=== PATIENT | male | born 1950 | race African-American/Black ===

== ENCOUNTER 2020-09-03 12:07 | Outpatient (REF) | payer OTHER, SELFPAY ==
[2020-09-03 13:44] LABS: MANUAL DIFF FLAG NO
[2020-09-03 13:53] LABS: Basophils Percent Auto 0.5 % (0-2); Eosinophils Absolute Auto 0.1 X10*3/uL (0.0-0.4); Eosinophils Percent Auto 1.2 % (0-4); Hematocrit 45.2 % (42-52); Hemoglobin 15.4 g/dl (14.0-18.0); Imm Gran Abs Auto 0.01 X10*3/uL (0.00-0.03); Imm Gran Pct Auto 0.2 % (0.0-0.4); Lymphocytes Absolute Auto 2.6 X10*3/uL (1.2-4.9); Lymphocytes Percent Auto 45.3 % (20-40); Mean Corpuscular HGB Conc 34.1 g/dl (31.0-36.0); Mean Corpuscular Hemoglobin 28.1 pg (27.0-33.0); Mean Corpuscular Volume 82.3 fL (80-98); Mean Platelet Volume 11.2 fL (9.4-12.4); Monocytes Absolute Auto 0.6 X10*3/uL (0.1-1.2); Monocytes Percent Auto 10.5 % (2-11); Neutrophils Absolute Auto 2.5 X10*3/uL (2.0-8.3); Neutrophils Percent Auto 42.3 % (45-73); Platelet Count 201 X10*3/uL (160-400); Red Blood Count 5.49 X10*6/uL (4.60-5.80); Red Cell Distribution Width 12.8 % (11.0-16.0); White Blood Count 5.8 X10*3/uL (4.8-10.8)
[2020-09-03 14:20] LABS: Creatinine Urine 60.48 mg/dL
[2020-09-03 14:24] LABS: Alanine Aminotransferase 22 U/L (0-40); Albumin Level 4.3 g/dL (3.5-5.0); Alkaline Phosphatase 70 U/L (39-117); Anion Gap 10 (12-20); Aspartate Amino Transferase 18 U/L (5-37); Bilirubin Total 0.7 mg/dL (0.0-1.0); Blood Urea Nitrogen 27 mg/dL (9-16); Calcium 9.9 mg/dL (8.4-10.2); Carbon Dioxide 32 mmol/L (22-29); Chloride 103 mmol/L (96-108); Estimated Glomerular Filt Rate 39; Glucose Random 78 mg/dL (60-115); Potassium 4.4 mmol/l (3.3-5.1); Sodium 141 mmol/L (135-145); Total Protein 7.5 g/dL (6.5-8.0)
[2020-09-03 14:28] LABS: Estimated Average Glucose 128 mg/dL; Hemoglobin A1c % 6.1 %
== END 2020-09-03 12:08 | disposition home or self-care (01) ==
LOC: HO.10HDL 12:07
PROVIDERS: Visit Provider Internal Medicine
DX: I12.9 Hypertensive chronic kidney disease with stage 1 through stage 4 chronic kidney disease, or unspecified chronic kidney disease (principal); N18.9 Chronic kidney disease, unspecified; I48.0 Paroxysmal atrial fibrillation; R73.03 Prediabetes
CPT/HCPCS: 36415; 80053; 82043; 83036; 85025

== ENCOUNTER 2020-11-09 11:28 | Outpatient (REF) | payer OTHER, SELFPAY ==
[2020-11-09 14:24] LABS: Alanine Aminotransferase 17 U/L (0-40); Albumin Level 4.2 g/dL (3.5-5.0); Alkaline Phosphatase 72 U/L (39-117); Anion Gap 13 (12-20); Aspartate Amino Transferase 16 U/L (5-37); Bilirubin Total 0.4 mg/dL (0.0-1.0); Blood Urea Nitrogen 26 mg/dL (9-16); Calcium 9.6 mg/dL (8.4-10.2); Carbon Dioxide 29 mmol/L (22-29); Chloride 102 mmol/L (96-108); Cholesterol 155 mg/dL; Estimated Glomerular Filt Rate 36; Glucose Fasting 103 mg/dL (60-99); HDL Cholesterol 47 mg/dL; LDL Cholesterol Calculated 89 mg/dl; Potassium 4.4 mmol/l (3.3-5.1); Sodium 140 mmol/L (135-145); Total Protein 7.4 g/dL (6.5-8.0); Triglycerides 98 mg/dL
== END 2020-11-09 11:29 | disposition home or self-care (01) ==
LOC: HO.10HDL 11:28
PROVIDERS: PCP Internal Medicine; Visit Provider Internal Medicine
DX: E78.00 Pure hypercholesterolemia, unspecified (principal); R73.03 Prediabetes; I12.9 Hypertensive chronic kidney disease with stage 1 through stage 4 chronic kidney disease, or unspecified chronic kidney disease; N18.9 Chronic kidney disease, unspecified
CPT/HCPCS: 80053; 80061

== ENCOUNTER 2020-11-22 17:09 | Outpatient (REF) | payer OTHER, SELFPAY ==
[2020-11-22 17:47] LABS: Basophils Percent Auto 0.2 % (0-2); Eosinophils Percent Auto 0.2 % (0-4); Hemoglobin 15.3 g/dl (14.0-18.0); Imm Gran Abs Auto 0.03 X10*3/uL (0.00-0.03); Imm Gran Pct Auto 0.3 % (0.0-0.4); Lymphocytes Absolute Auto 1.9 X10*3/uL (1.2-4.9); Lymphocytes Percent Auto 18.6 % (20-40); MANUAL DIFF FLAG NO; Mean Corpuscular HGB Conc 34.8 g/dl (31.0-36.0); Mean Corpuscular Hemoglobin 28.1 pg (27.0-33.0); Mean Corpuscular Volume 80.9 fL (80-98); Mean Platelet Volume 10.2 fL (9.4-12.4); Monocytes Absolute Auto 0.9 X10*3/uL (0.1-1.2); Monocytes Percent Auto 8.3 % (2-11); Neutrophils Absolute Auto 7.5 X10*3/uL (2.0-8.3); Neutrophils Percent Auto 72.4 % (45-73); Platelet Count 234 X10*3/uL (160-400); Red Blood Count 5.44 X10*6/uL (4.60-5.80); White Blood Count 10.4 X10*3/uL (4.8-10.8)
[2020-11-22 18:14] LABS: Anion Gap 13 (12-20); Blood Urea Nitrogen 22 mg/dL (9-16); C Reactive Protein 2.99 mg/dL (< or = 0.50); Calcium 9.8 mg/dL (8.4-10.2); Carbon Dioxide 27 mmol/L (22-29); Chloride 100 mmol/L (96-108); Estimated Glomerular Filt Rate 43; Glucose Random 134 mg/dL (60-115); Potassium 4.1 mmol/l (3.3-5.1); Sodium 136 mmol/L (135-145)
== END 2020-11-22 17:10 | disposition home or self-care (01) ==
LOC: HO.LAB 17:09
PROVIDERS: PCP Internal Medicine; Visit Provider Internal Medicine
DX: I12.9 Hypertensive chronic kidney disease with stage 1 through stage 4 chronic kidney disease, or unspecified chronic kidney disease (principal); N18.9 Chronic kidney disease, unspecified; M10.9 Gout, unspecified; M25.432 Effusion, left wrist
CPT/HCPCS: 36415; 80048; 84550; 85025; 86140

== ENCOUNTER → 2020-11-25 09:04 | Outpatient (BNVA) | payer OTHER, MEDICARE, SELFPAY | PROVIDERS: PCP Internal Medicine; Visit Provider Internal Medicine | DX: I48.0 Paroxysmal atrial fibrillation (principal); I63.411 Cerebral infarction due to embolism of right middle cerebral artery; R94.31 Abnormal electrocardiogram [ECG] [EKG]; I10 Essential (primary) hypertension | CPT/HCPCS: 93005; 99212 ==

== ENCOUNTER 2021-02-14 10:16 | Outpatient (REF) | payer OTHER, MEDICARE, SELFPAY ==
[2021-02-14 13:58] LABS: MANUAL DIFF FLAG NO
[2021-02-14 14:08] LABS: Basophils Percent Auto 0.5 % (0-2); Eosinophils Absolute Auto 0.1 X10*3/uL (0.0-0.4); Eosinophils Percent Auto 1.2 % (0-4); Hematocrit 42.6 % (42-52); Hemoglobin 14.4 g/dl (14.0-18.0); Imm Gran Abs Auto 0.01 X10*3/uL (0.00-0.03); Imm Gran Pct Auto 0.2 % (0.0-0.4); Lymphocytes Absolute Auto 2.4 X10*3/uL (1.2-4.9); Lymphocytes Percent Auto 42.3 % (20-40); Mean Corpuscular HGB Conc 33.8 g/dl (31.0-36.0); Mean Corpuscular Hemoglobin 27.5 pg (27.0-33.0); Mean Corpuscular Volume 81.3 fL (80-98); Mean Platelet Volume 11.3 fL (9.4-12.4); Monocytes Absolute Auto 0.6 X10*3/uL (0.1-1.2); Monocytes Percent Auto 9.8 % (2-11); Neutrophils Absolute Auto 2.6 X10*3/uL (2.0-8.3); Platelet Count 208 X10*3/uL (160-400); Red Blood Count 5.24 X10*6/uL (4.60-5.80); White Blood Count 5.7 X10*3/uL (4.8-10.8)
[2021-02-14 14:15] LABS: Estimated Average Glucose 143 mg/dL; Hemoglobin A1c % 6.6 %
[2021-02-14 14:42] LABS: Anion Gap 14 (12-20); Blood Urea Nitrogen 27 mg/dL (9-16); Calcium 9.4 mg/dL (8.4-10.2); Carbon Dioxide 29 mmol/L (22-29); Chloride 102 mmol/L (96-108); Estimated Glomerular Filt Rate 51; Glucose Fasting 114 mg/dL (60-99); Sodium 141 mmol/L (135-145)
[2021-02-14 14:55] LABS: Uric Acid 8.1 mg/dL (3.4-7.0)
== END 2021-02-14 10:17 | disposition home or self-care (01) ==
LOC: HO.10HDL 10:16
PROVIDERS: Visit Provider Internal Medicine
DX: M10.9 Gout, unspecified (principal); I12.9 Hypertensive chronic kidney disease with stage 1 through stage 4 chronic kidney disease, or unspecified chronic kidney disease; N18.9 Chronic kidney disease, unspecified; R73.03 Prediabetes
CPT/HCPCS: 36415; 80048; 83036; 84550; 85025

== ENCOUNTER 2021-06-02 08:44 | Outpatient (REF) | payer MEDICARE, OTHER, SELFPAY ==
[2021-06-02 10:11] LABS: MANUAL DIFF FLAG NO
[2021-06-02 10:13] LABS: Basophils Percent Auto 0.5 % (0-2); Eosinophils Absolute Auto 0.1 X10*3/uL (0.0-0.4); Eosinophils Percent Auto 1.1 % (0-4); Hematocrit 39.6 % (42-52); Hemoglobin 13.5 g/dl (14.0-18.0); Imm Gran Abs Auto 0.01 X10*3/uL (0.00-0.03); Imm Gran Pct Auto 0.2 % (0.0-0.4); Lymphocytes Absolute Auto 2.3 X10*3/uL (1.2-4.9); Lymphocytes Percent Auto 40.5 % (20-40); Mean Corpuscular HGB Conc 34.1 g/dl (31.0-36.0); Mean Corpuscular Hemoglobin 27.8 pg (27.0-33.0); Mean Corpuscular Volume 81.5 fL (80-98); Mean Platelet Volume 10.5 fL (9.4-12.4); Monocytes Absolute Auto 0.5 X10*3/uL (0.1-1.2); Monocytes Percent Auto 9.5 % (2-11); Neutrophils Absolute Auto 2.8 X10*3/uL (2.0-8.3); Neutrophils Percent Auto 48.2 % (45-73); Platelet Count 216 X10*3/uL (160-400); Red Blood Count 4.86 X10*6/uL (4.60-5.80); Red Cell Distribution Width 14.6 % (11.0-16.0); White Blood Count 5.7 X10*3/uL (4.8-10.8)
[2021-06-02 11:00] LABS: Alanine Aminotransferase 13 U/L (0-40); Albumin Level 4.1 g/dL (3.5-5.0); Alkaline Phosphatase 58 U/L (39-117); Anion Gap 11 (12-20); Aspartate Amino Transferase 15 U/L (5-37); Bilirubin Total 0.6 mg/dL (0.0-1.0); Blood Urea Nitrogen 36 mg/dL (9-16); Calcium 9.9 mg/dL (8.4-10.2); Carbon Dioxide 25 mmol/L (22-29); Chloride 107 mmol/L (96-108); Estimated Glomerular Filt Rate 35; Glucose Random 141 mg/dL (60-115); Potassium 4.2 mmol/L (3.3-5.1); Sodium 139 mmol/L (135-145); Total Protein 6.9 g/dL (6.5-8.0); Uric Acid 6.1 mg/dL (3.4-7.0)
== END 2021-06-02 08:45 | disposition home or self-care (01) ==
LOC: HO.10HDL 08:44
PROVIDERS: PCP Internal Medicine; Visit Provider Internal Medicine
DX: I12.9 Hypertensive chronic kidney disease with stage 1 through stage 4 chronic kidney disease, or unspecified chronic kidney disease (principal); N18.9 Chronic kidney disease, unspecified; M10.9 Gout, unspecified; I48.0 Paroxysmal atrial fibrillation; I63.511 Cerebral infarction due to unspecified occlusion or stenosis of right middle cerebral artery; I10 Essential (primary) hypertension; E78.5 Hyperlipidemia, unspecified; R47.01 Aphasia; R94.31 Abnormal electrocardiogram [ECG] [EKG]; Z79.52 Long term (current) use of systemic steroids; Z79.899 Other long term (current) drug therapy
CPT/HCPCS: 36415; 80053; 84550; 85025; 99212

== ENCOUNTER → 2021-11-24 08:41 | Outpatient (BNVA) | payer MEDICARE, SELFPAY | PROVIDERS: PCP Internal Medicine; Referring Provider Internal Medicine; Visit Provider Internal Medicine | DX: I48.0 Paroxysmal atrial fibrillation (principal); I63.411 Cerebral infarction due to embolism of right middle cerebral artery; I10 Essential (primary) hypertension; R94.31 Abnormal electrocardiogram [ECG] [EKG] | CPT/HCPCS: 93005; 99212 ==

== ENCOUNTER → 2022-05-18 08:30 | Outpatient (REF) | payer OTHER, SELFPAY ==
--- NOTE | 2022-05-18 08:34 | CA_ITS ---
Transthoracic Echocardiogram Patient (Last, First, Middle): Solitario Stewart, Gender: Male Date of : 1950 Age: 71 Procedure Date: 05/18/2022 Procedure Type: Transthoracic Echocardiogram Location: OP Height: 170.18 cm Weight: 79.83 kg BSA: 1.92 m2 Heart Rate: bpm BP: 140 / 90 mmHg Extension Service Advisor: TO Referring MD: Isak Rincon MD Symptoms: I48.0 - Paroxysmal atrial fibrillation Study Quality: Fair ECG Rhythm: Sinus Conclusions: - The left ventricular systolic function is normal. The calculated ejection fraction is 61% by biplane method. - Evidence suggests grade II (moderate) diastolic dysfunction. - There is mild calcification of the aortic valve. - Mild pulmonic stenosis. Findings Left Ventricle Normal left ventricular cavity size. There is mildly increased left ventricular wall thickness. The left ventricular systolic function is normal. The calculated ejection fraction is 61% by biplane method. There is no evidence of regional wall motion abnormalities. E/E prime ratio is between 8 and 15 consistent with indeterminate filling pressures. Evidence suggests grade II (moderate) diastolic dysfunction. Right Ventricle Normal right ventricular cavity size and systolic function. Atria The left atrium is mildly dilated. The right atrium is normal in size. Aortic Valve There is a normal trileaflet aortic valve. There is mild calcification of the aortic valve. There is no aortic valve stenosis. There is no aortic valve regurgitation. Mitral Valve The mitral valve appears normal. There is trace mitral valve regurgitation. There is no mitral valve stenosis. Pulmonic Valve There is mild stenosis. Peak PV gradient is calculated at 24 mmHg. Tricuspid Valve Normal tricuspid valve structure. There is no tricuspid valve regurgitation. The pulmonary artery systolic pressure is normal. Great Vessels The asc aorta is normal in size. Venous The inferior vena cava is normal in size and collapses greater than 50% with inspiration. Pericardium/Pleural There is no evidence of pericardial effusion. Prior Study Comparison Changes noted compared to prior study dated: 04/21/2019. Progression of diastolic dysfunction. Measurements 2D Linear Measurements IVSd: 1.31 0.6-0.9/0.6-1.0 cm LVIDd: 4.10 3.9-5.3/4.2-5.9 cm LVIDd Index: 2.14 2.4-3.2/2.2-3.1 cm/m2 LVIDs: 2.89 2.0-3.6 cm LVPWd: 1.18 0.7-1.1 cm LA Diam: 4.00 2.7-3.8/3.0-4.0 cm LAIDs Index: 2.08 1.5-2.3 cm/m2 LV Mass: 225.96 67-162/88-224 g LV Mass Index: 117.69 43-95/49-115 g/m2 LVOT Diam: 2.00 3.0+(-)1.3 cm 2D Systolic Function EF 4C: 66.40 >55% EF 2C: 57.00 >55% EF BiP: 60.70 >55% Mitral Valve MV Pk E: 0.96 MV PK A: 0.55 MV Decel Time: 285.00 E/A: 1.80 E'Lateral: 9.46 E'Medial: 5.55 E/E' Med: 17.30 E/E' Lat: 10.20 PHT: 84.00 MVA PHT: 2.62 Decel [place]: 3.37 Aortic Valve AoV Pk Glen: 1.69 AoV Mn Glen: 1.13 AoV VTI: 0.37 AoV Pk Grad: 11.00 Aov Mn Grad: 6.00 ARUNA Cont.VTI: 2.61 LVOT LVOT Pk Glen: 1.54 LVOT Mn Glen: 0.93 LVOT VTI: 0.31 LVOT Pk Grad: 9.00 LVOT Mn Grad: 4.00 LVOT Diam: 2.00 LVOT Area: 3.14 Diastolic Function MV Pk E: 0.96 MV Pk A: 0.55 E/A: 1.80 E'Medial: 5.55 E/E' Med: 17.30 E' Laterial: 9.46 E/E' Lat: 10.20 Right Ventricle TAPSE (mm): 17.10 TVS' Glen: 8.16 Tricuspid Valve TR Pk Glen: 2.25 TR Pk Grad: 20.00 RA Press: 3.00 RVSP: 23.00 Great Vessels Aorta Sinus of Valsalva: 3.00 2.0-3.5 cm Ao Asc: 3.00 2.1-3.4 cm Pulmonary Valve PV Pk Glen: 2.43 PV Min Geln: 1.57 Peak PV Grad: 24.00 PV Mn Grad: 12.00 Shunting QP:QS: 0.50 Updated in Other Vendor System with Status of Final Isak Rincon MD electronically signed on 05/20/2022 12:52:56 PM with status of Final
--- NOTE | 2022-05-18 08:34 | HM_ITS ---
Conclusion: 1. Patient was monitored for total period of 3 days and 15 hours 2. Patient with intermittent episode of atrial fibrillation with total burden of 62% of time with longest episode lasting 8 hours and 26 minutes. 3. While in atrial fibrillation patient has uncontrolled ventricular response 4. 1 3 beat tana of nonsustained VT 5. Very rare PVCs noted 6. No patient reported events MTDD
== END ==
LOC: HO.CARD 08:30
PROVIDERS: PCP Internal Medicine; Visit Provider Internal Medicine
DX: I48.0 Paroxysmal atrial fibrillation (principal); I10 Essential (primary) hypertension; R94.31 Abnormal electrocardiogram [ECG] [EKG]
CPT/HCPCS: 93242; 93306

== ENCOUNTER → 2022-09-11 11:22 | Outpatient (REF) | payer OTHER, SELFPAY ==
--- NOTE | 2022-09-11 11:25 | HM_ITS ---
Conclusion: 1. Patient was monitored for 2 days and 5 hours 2. Baseline was normal sinus rhythm with average heart rate of 67 beats per minute 3. Intermittent episodes of atrial fibrillation with total burden of 15% of the time with longest episode lasting 5 hours and 58 minutes 4. Frequent sinus bradycardia with heart rate less than 60 beats per minute 42% of the time 5. Total of 3172 PACs accounting for 1.5% total burden account for frequent PACs 6. No significant pauses noted 7. No patient reported events MTDD
== END ==
LOC: HO.CARD 11:22
PROVIDERS: PCP Internal Medicine; Visit Provider Internal Medicine
DX: I48.0 Paroxysmal atrial fibrillation (principal)
CPT/HCPCS: 93242

== ENCOUNTER 2023-03-22 08:23 | Outpatient (REF) | payer OTHER, SELFPAY ==
[2023-03-22 10:46] LABS: Alanine Aminotransferase 25 U/L (0-40); Alkaline Phosphatase 91 U/L (39-117); Anion Gap 11 (12-20); Aspartate Amino Transferase 19 U/L (5-37); Bilirubin Total 0.5 mg/dL (0.0-1.0); Blood Urea Nitrogen 20 mg/dL (9-16); Calcium 9.5 mg/dL (8.4-10.2); Carbon Dioxide 27 mmol/L (22-29); Chloride 110 mmol/L (96-108); Estimated Glomerular Filt Rate 43; Glucose Random 161 mg/dL (60-115); Potassium 4.2 mmol/L (3.3-5.1); Sodium 144 mmol/L (135-145); Total Protein 6.6 g/dL (6.5-8.0)
[2023-03-22 11:05] LABS: PSA,Total (Free>4and<10) 7.89 ng/mL (0.00-4.00)
[2023-03-26 12:04] LABS: Free Prostate Spec Ag 1.9 ng/mL; Percent Free Prostate Spec Ag 27 % (calc) (>25)
== END 2023-03-22 08:24 | disposition home or self-care (01) ==
LOC: HO.10HDL 08:23
PROVIDERS: Visit Provider Internal Medicine
DX: Z12.5 Encounter for screening for malignant neoplasm of prostate (principal); I48.91 Unspecified atrial fibrillation; I12.9 Hypertensive chronic kidney disease with stage 1 through stage 4 chronic kidney disease, or unspecified chronic kidney disease; N18.9 Chronic kidney disease, unspecified; R97.20 Elevated prostate specific antigen [PSA]
CPT/HCPCS: 36415; 80053; 84153; 84154

== ENCOUNTER 2023-08-17 11:02 | Outpatient (REF) | payer OTHER, SELFPAY ==
[2023-08-17 13:19] LABS: MANUAL DIFF FLAG NO
[2023-08-17 13:23] LABS: Basophils Percent Auto 0.6 % (0-2); Eosinophils Absolute Auto 0.1 X10*3/uL (0.0-0.4); Eosinophils Percent Auto 1.2 % (0-4); Hematocrit 46.5 % (42.0-52.0); Imm Gran Abs Auto 0.02 X10*3/uL (0.00-0.03); Imm Gran Pct Auto 0.3 % (0.0-0.4); Lymphocytes Absolute Auto 2.6 X10*3/uL (1.2-4.9); Lymphocytes Percent Auto 35.4 % (20-40); Mean Corpuscular HGB Conc 34.4 g/dl (31.0-36.0); Mean Corpuscular Hemoglobin 28.2 pg (27.0-33.0); Mean Corpuscular Volume 81.9 fL (80.0-98.0); Mean Platelet Volume 10.9 fL (9.4-12.4); Monocytes Absolute Auto 0.7 X10*3/uL (0.1-1.2); Monocytes Percent Auto 9.6 % (2-11); Neutrophils Absolute Auto 3.8 x10*3/uL (2.0-8.3); Neutrophils Percent Auto 52.9 % (45-73); Platelet Count 222 X10*3/uL (160-400); Red Blood Count 5.68 X10*6/uL (4.60-5.80); White Blood Count 7.2 X10*3/uL (4.8-10.8)
[2023-08-17 13:43] LABS: Estimated Average Glucose 128 mg/dL; Hemoglobin A1c % 6.1 % (<6.0)
[2023-08-17 14:01] LABS: Appearance Urine Clear; Color Urine Yellow; Glucose Urine UA Negative (Negative); Leukocyte Esterase Urine Negative (Negative); Nitrite Urine Negative (Negative); PH 5.5 (5.0-9.0); Specific Gravity - Urine 1.015 (1.005-1.025); UMIC TRIGGER UACC YES; Urine Blood Negative (Negative); Urine Ketones Negative (Negative); Urine Protein 100 (2+) mg/dL (Neg-Trace)
[2023-08-17 14:06] LABS: Alanine Aminotransferase 19 U/L (0-40); Albumin Level 4.1 g/dL (3.5-5.0); Alkaline Phosphatase 79 U/L (39-117); Anion Gap 15 (12-20); Aspartate Amino Transferase 18 U/L (5-37); Bilirubin Total 0.4 mg/dL (0.0-1.0); Blood Urea Nitrogen 19 mg/dL (9-16); Calcium 9.8 mg/dL (8.4-10.2); Carbon Dioxide 27 mmol/L (22-29); Chloride 102 mmol/L (96-108); Estimated Glomerular Filt Rate 40; Glucose Random 142 mg/dL (60-115); Potassium 3.9 mmol/L (3.3-5.1); Sodium 140 mmol/L (135-145); Total Protein 7.4 g/dL (6.5-8.0)
[2023-08-17 14:07] LABS: Bacteria Urine None Seen (None Seen); Hyaline Casts Urine 0-2 /LPF (0-2); RBC Urine 0-2 /HPF (0-2); Squamous Epithelial Cell Urine 0-2 /HPF (0-2); WBC Urine 0-5 /HPF (0-5)
== END 2023-08-17 11:03 | disposition home or self-care (01) ==
LOC: HO.10HDL 11:02
PROVIDERS: Visit Provider Internal Medicine
DX: E11.9 Type 2 diabetes mellitus without complications (principal); I48.91 Unspecified atrial fibrillation; R30.0 Dysuria
CPT/HCPCS: 36415; 80053; 81001; 83036; 85025; 87086

== ENCOUNTER 2023-10-17 13:24 | Outpatient (AMB) | payer OTHER, SELFPAY ==
[2023-10-17 13:36] VITALS: BP 142/78; PULSE 68; BMI 27.8
--- NOTE | 2023-10-17 13:36 | MHC.OFFVIS ---
Intake Vital Signs 10/17/23 13:36 Height 5 ft 7 in Weight 177 lb 4.026 oz BMI 27.8 BP 142/78 H Blood Pressure Location Lt brachial Position Sitting Pulse 68 Pulse Source Monitor Intake Visit Reasons: 1 year followup w/ekg dx: paf Intake Note: 1 year follow up w/ eKG [employer] Operator Required: No Accompanied by: Spouse Allergies No Known Allergies Allergy (Verified 10/17/23 13:37) Medication List - Last Reconciled 10/17/23 by Isak Rincon MD apixaban 5 mg PO BID aspirin 81 mg PO DAILY carvedilol 12.5 mg PO ONCE diltiazem HCl 120 mg PO DAILY pravastatin 40 mg PO BEDTIME HPI HPI Comments History of Present Illness Details Solitario returns for follow-up regarding atrial fibrillation and stroke. He has a prior history of paroxysmal atrial fibrillation. However, in the past, cost of anticoagulants was very high costing 100s of dollars. Hence they could not afford it and he was not taking anything. Then he had a left-sided stroke and aphasia and admitted to [facility]. At that time he was put on Eliquis. No significant residual deficits. Otherwise, he also has hypertension, dyslipidemia and chronic kidney disease. He states he is very active in the house as well as ER with absolutely no complaints. Has never had angina or in fact any cardiac complaints. No limitations of physical activity. 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 PAF (paroxysmal atrial fibrillation) Surgical History No pertinent past surgical history Family History Father HTN (hypertension) Mother HTN (hypertension) Social History Patient Tobacco Use Status: Never used Tobacco Review of Systems Const Denies weakness ENT Denies dizziness Card Denies chest pain, Denies chest pain with activity, Denies syncope, Denies rapid heart rate, Denies pedal edema, Denies edema, Denies leg edema, Denies lightheadedness, Denies palpitations, Denies dyspnea, Denies dyspnea on exertion and Denies orthopnea Resp Denies cough, Denies dyspnea and Denies dyspnea on exertion GI Denies hematochezia and Denies change in stool character Musc Denies abnormal gait, Denies muscle cramps, Denies muscle weakness, Denies numbness, Denies radiating pain into limb and Denies tingling Neuro Denies abnormal gait, Denies dizziness, Denies syncope, Denies numbness, Denies tingling and Denies weakness Endo Denies palpitations Physical Exam Vital Signs: Last Vital Signs Pulse 68 10/17/23 13:36 BP 142/78 H 10/17/23 13:36 BMI result Body Mass Index 27.8 Const General: comfortable and no acute distress Orientation/consciousness: patient oriented x3 HEENT Other: Unremarkable Head: Yes normal to inspection Neck Neck: Yes normal visual inspection Chest Chest palpation & inspection: normal inspection of the chest Resp Auscultation: clear to auscultation bilaterally Cardio Palpation: normal PMI Heart sounds: S1 normal heart sound present, S2 normal heart sound present, no gallops, no murmurs and no rubs GI Palpation (GI): Soft to palpation Back/Spine/Pelvis Other: unremarkable Skin General skin exam: no rashes or lesions noted Neuro General: patient oriented x3 Extrem General: Yes normal to inspection Psych Mental Status: mental status grossly normal Office Procedures EKG Details: EKG with sinus rhythm at 68/Min; T inversions across the precordium as well as inferior leads/lateral leads and this has been chronic. Possibly from longstanding uncontrolled hypertension. [id number], Complete Assessment & Plan Assessment & Plan (1) PAF (paroxysmal atrial fibrillation): Code(s): I48.0 - Paroxysmal atrial fibrillation Plan: Clinically, no symptoms. Continue diltiazem/Coreg/Eliquis. He is not sure of the Coreg dose once or twice a day. 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 No significant stenosis in the neck arteries. MRI brain had shown areas of acute ischemia involving the right parietal and temporal lobes. Old lacunar infarcts also noted. Echocardiogram had shown LVEF 55-65% and no wall motion abnormalities or valvular issues; bubble study was negative. Continue Eliquis. He is also on aspirin. No significant weakness at this time. (3) Abnormal EKG: Code(s): R94.31 - Abnormal electrocardiogram [ECG] [EKG] Plan: EKG shows deep T inversions across the anterior leads. This is a chronic finding. Probably all from left ventricular hypertrophy/strain. In a prior stress test from [facility] from 2017, there was no significant perfusion abnormality. This was repeated and shows possible apical ischemia but he was able to exercise for 9 minutes on the Julian protocol. Clinically, he has got absolutely no angina. Extremely active without limitations. Hence we will follow clinically. If necessary, we can either repeat a stress test or consider catheterization but he already has CKD as well. (4) Essential hypertension: Code(s): I10 - Essential (primary) hypertension Plan: On diltiazem and carvedilol. Previously, also listed to be on lisinopril but not in his current list. They do not actual doses or the names either. 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 Hence no further changes to avoid any confusion. (5) CKD (chronic kidney disease): Code(s): N18.9 - Chronic kidney disease, unspecified Plan: Most recently 1.7. In the past, as much as 2.1. Plan Discussed with significant other who came for appointment. 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
== END 2023-10-17 13:53 | disposition home or self-care (01) ==
PROVIDERS: PCP Internal Medicine; Visit Provider Internal Medicine
DX: I48.0 Paroxysmal atrial fibrillation (principal); I63.411 Cerebral infarction due to embolism of right middle cerebral artery; R94.31 Abnormal electrocardiogram [ECG] [EKG]; I12.9 Hypertensive chronic kidney disease with stage 1 through stage 4 chronic kidney disease, or unspecified chronic kidney disease; N18.9 Chronic kidney disease, unspecified
CPT/HCPCS: 93010; 99214

== ENCOUNTER → 2023-10-17 13:24 | Outpatient (BNVA) | payer OTHER, SELFPAY | PROVIDERS: PCP Internal Medicine; Visit Provider Internal Medicine | DX: I48.0 Paroxysmal atrial fibrillation (principal); I63.411 Cerebral infarction due to embolism of right middle cerebral artery; R94.31 Abnormal electrocardiogram [ECG] [EKG]; I12.9 Hypertensive chronic kidney disease with stage 1 through stage 4 chronic kidney disease, or unspecified chronic kidney disease; N18.9 Chronic kidney disease, unspecified | CPT/HCPCS: 93005 ==

== ENCOUNTER 2023-11-16 13:25 | Outpatient (REF) | payer OTHER, SELFPAY ==
[2023-11-16 14:45] LABS: Influenza A PCR POSITIVE (Negative); Influenza B PCR NEGATIVE (Negative); Resp Syncy Virus RNA Qual PCR NEGATIVE (Negative); SARS COV2 PCR INHOUSE NEGATIVE (Negative)
== END 2023-11-16 13:26 | disposition home or self-care (01) ==
LOC: HO.LNP 13:25
PROVIDERS: Visit Provider Internal Medicine
DX: Z11.52 Encounter for screening for COVID-19 (principal); R05.9 Cough, unspecified; R50.9 Fever, unspecified; Z20.822 Contact with and (suspected) exposure to COVID-19
CPT/HCPCS: 0241U

== ENCOUNTER 2024-02-19 12:36 | Outpatient (REF) | payer OTHER, SELFPAY ==
[2024-02-19 12:58] LABS: MANUAL DIFF FLAG NO
[2024-02-19 13:18] LABS: Basophils Percent Auto 0.2 % (0-2); Eosinophils Absolute Auto 0.1 X10*3/uL (0.0-0.4); Eosinophils Percent Auto 0.7 % (0-4); Hematocrit 39.2 % (42.0-52.0); Hemoglobin 13.8 g/dl (14.0-18.0); Imm Gran Abs Auto 0.03 X10*3/uL (0.00-0.03); Imm Gran Pct Auto 0.3 % (0.0-0.4); Lymphocytes Absolute Auto 1.8 X10*3/uL (1.2-4.9); Lymphocytes Percent Auto 19.3 % (20-40); Mean Corpuscular HGB Conc 35.2 g/dl (31.0-36.0); Mean Corpuscular Hemoglobin 28.3 pg (27.0-33.0); Mean Corpuscular Volume 80.5 fL (80.0-98.0); Mean Platelet Volume 11.3 fL (9.4-12.4); Monocytes Absolute Auto 0.5 X10*3/uL (0.1-1.2); Monocytes Percent Auto 4.9 % (2-11); Neutrophils Percent Auto 74.6 % (45-73); Platelet Count 171 X10*3/uL (160-400); Red Blood Count 4.87 X10*6/uL (4.60-5.80); Red Cell Distribution Width 13.2 % (11.0-16.0); White Blood Count 9.4 X10*3/uL (4.8-10.8)
[2024-02-19 13:30] LABS: Appearance Urine Clear; Color Urine Yellow; Glucose Urine UA >=1000 mg/dL (Negative); Leukocyte Esterase Urine Negative (Negative); Nitrite Urine Negative (Negative); Specific Gravity - Urine 1.025 (1.005-1.025); UMIC TRIGGER UACC YES; Urine Blood Negative (Negative); Urine Ketones Negative (Negative); Urine Protein 300 (3+) mg/dL (Neg-Trace)
[2024-02-19 13:33] LABS: Estimated Average Glucose 295 mg/dL; Hemoglobin A1c % 11.9 % (<6.0)
[2024-02-19 13:35] LABS: Bacteria Urine None Seen (None Seen); Hyaline Casts Urine 0-2 /LPF (0-2); RBC Urine 0-2 /HPF (0-2); Squamous Epithelial Cell Urine 0-2 /HPF (0-2); WBC Urine 0-5 /HPF (0-5)
[2024-02-19 14:05] LABS: Troponin-I High Sensitivity 11.3 ng/L (<3.5-35.0)
[2024-02-19 15:00] LABS: Alanine Aminotransferase 31 U/L (0-40); Albumin Level 3.1 g/dL (3.5-5.0); Alkaline Phosphatase 102 U/L (39-117); Anion Gap 10 (12-20); Aspartate Amino Transferase 23 U/L (5-37); Bilirubin Total 0.5 mg/dL (0.0-1.0); Blood Urea Nitrogen 17 mg/dL (9-16); Calcium 9.1 mg/dL (8.4-10.2); Carbon Dioxide 23 mmol/L (22-29); Chloride 106 mmol/L (96-108); Estimated Glomerular Filt Rate 31; Glucose Random 629 mg/dL (60-115); Sodium 135 mmol/L (135-145); Total Protein 6.3 g/dL (6.5-8.0)
== END 2024-02-19 12:37 | disposition home or self-care (01) ==
LOC: HO.LAB 12:36
PROVIDERS: PCP Internal Medicine; Visit Provider Internal Medicine
DX: R55 Syncope and collapse (principal); I12.9 Hypertensive chronic kidney disease with stage 1 through stage 4 chronic kidney disease, or unspecified chronic kidney disease; N18.9 Chronic kidney disease, unspecified; R82.90 Unspecified abnormal findings in urine
CPT/HCPCS: 36415; 80053; 81001; 82550; 83036; 84484; 85025; 86140; 87086

== ENCOUNTER 2024-11-24 14:07 | Outpatient (AMB) | payer OTHER, SELFPAY ==
--- NOTE | 2024-11-24 14:30 | MHC.OFFVIS ---
Vital Signs 11/24/24 14:47 Height 5 ft 7 in Weight 171 lb 8.314 oz BMI 26.9 BP 130/90 H Blood Pressure Location Rt brachial Pulse 88 Intake Visit Reasons: 1 Year Follow up Allergies No Known Allergies Allergy (Verified 11/24/24 14:47) Medication List - Last Reconciled 11/24/24 by Isak Rincon MD apixaban (Eliquis) 2.5 mg PO BID aspirin 81 mg PO DAILY atorvastatin 10 mg PO DAILY carvedilol 12.5 mg PO ONCE diltiazem HCl CD 120 mg PO DAILY metformin 500 mg PO BID pravastatin 40 mg PO BEDTIME HPI Comments Details: Solitario returns for follow-up regarding atrial fibrillation and stroke. He has a prior history of paroxysmal atrial fibrillation. However, was not taking anticoagulation due to high cost. Then he had a left-sided stroke and aphasia and admitted to [facility]. At that time he was put on Eliquis. No significant residual deficits. Otherwise, he also has hypertension, dyslipidemia and chronic kidney disease. Overall, he states he is feeling good. No cardiac complaints whatsoever. No angina. No other concerns. Unfortunately, he does not know any of his medications. 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 PAF (paroxysmal atrial fibrillation) Surgical History No pertinent past surgical history Family History Father HTN (hypertension) Mother HTN (hypertension) Social History Patient Tobacco Use Status: Never used Tobacco Review of Systems Const All systems reviewed & are unremarkable except as noted in HPI and below Reports as per HPI and Reports no additional complaints Eyes Reports as per HPI and Denies no additional complaints ENT Denies no additional complaints and Reports as per HPI Card Details: no chest pain Reports as per HPI, Reports no additional complaints, Denies acrocyanosis, Denies chest pain, Denies leg edema, Denies lightheadedness, Denies palpitations and Denies dyspnea Resp Reports as per HPI, Denies no additional complaints and Denies dyspnea GI Reports as per HPI and Denies no additional complaints Reports no additional complaints and Reports as per HPI Musc Reports no additional complaints and Reports as per [facility] Skin/Breast Reports system reviewed and no additional complaints, except as documented Neuro Reports no additional complaints and Reports as per HPI Psych Reports no additional complaints and Reports as per HPI Endo Reports no additional complaints, Reports as per HPI and Denies palpitations Jose Antonio/Lymph Reports no additional complaints and Reports as per HPI Aller/Immun Reports no additional complaints and Reports as per HPI Physical Exam Vital Signs: Last Vital Signs Pulse 88 11/24/24 14:47 BP 130/90 H 11/24/24 14:47 BMI result Body Mass Index 26.9 Const General: comfortable and no acute distress Orientation/consciousness: patient oriented x3 HEENT Other: Unremarkable Head: Yes normal to inspection Neck Neck: Yes normal visual inspection Chest Chest palpation & inspection: normal inspection of the chest Resp Auscultation: clear to auscultation bilaterally Cardio Palpation: normal PMI Heart sounds: S1 normal heart sound present, S2 normal heart sound present, no gallops, no murmurs and no rubs GI Palpation (GI): Soft to palpation Back/Spine/Pelvis Other: unremarkable Skin General skin exam: no rashes or lesions noted Neuro General: patient oriented x3 Extrem General: Yes normal to inspection Psych Mental Status: mental status grossly normal Office Procedures EKG Details: EKG with atrial fibrillation at a rate of 88/Min; LVH; T inversions in anterolateral leads which could be related to LVH. Less likely ischemia. Chronic finding. [id number], Complete Assessment & Plan Assessment & Plan (1) PAF (paroxysmal atrial fibrillation): Code(s): I48.0 - Paroxysmal atrial fibrillation Category: Medical Plan: EKG 1 year ago had shown sinus rhythm but today shows atrial fibrillation. Could be persistent but not clear. Clinically he has got no symptoms. Check echocardiogram/Holter. Listed to be on carvedilol, diltiazem but he does not know the dosage. Continue Eliquis. 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 No significant stenosis in the neck arteries. MRI brain had shown areas of acute ischemia involving the right parietal and temporal lobes. Old lacunar infarcts also noted. Echocardiogram had shown LVEF 55-65% and no wall motion abnormalities or valvular issues; bubble study was negative. Continue Eliquis. He is also on aspirin. No significant weakness at this time. (3) Abnormal EKG: Code(s): R94.31 - Abnormal electrocardiogram [ECG] [EKG] Category: Medical Plan: EKG shows deep T inversions across the anterior leads. This is a chronic finding. Probably all from left ventricular hypertrophy/strain. In a prior stress test from [facility] from 2017, there was no significant perfusion abnormality. This was repeated and shows possible apical ischemia but he was able to exercise for 9 minutes on the Julian protocol. Clinically, he has got absolutely no angina. Extremely active without limitations. Hence we will follow clinically. If necessary, we can either repeat a stress test or consider catheterization but he already has CKD as well. (4) Essential hypertension: Code(s): I10 - Essential (primary) hypertension Category: Medical Plan: Due to lack of insight and to avoid confusion, no changes made. May keep regimen per Nephrology/PCP. Patient does not know his meds. (5) CKD (chronic kidney disease): Code(s): N18.9 - Chronic kidney disease, unspecified Category: Medical Plan: Most recent creatinine is 2.1. Plan Discussed with significant other who came for appointment. 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
[2024-11-24 14:47] VITALS: BP 130/90; PULSE 88; BMI 26.9
--- OUTSIDE RECORDS SUMMARY | 2024-11-24 16:24 | XMS_ITS | Continuity of Care Document ---
Author Organization [facility] ancer Care Address [address] [place] [address]- Care Team Providers Care Wound Care Physician Name Role Phone Rex Avila MD Primary Care Physician [phone] [id number] Date(s): 05/05/24 - 11/12/24 [facility] [address] [place] [address] Discharge Disposition: A-D/C Home Attending Physician: Ching Espinoza MD Admitting Physician: Ching Espinoza MD Referring Physician: Behzad Lafleur Encounter Type: Disch Recurring OP Allergies, Adverse Reactions, Alerts No Known Medication Allergies Immunizations Given and Recorded Vaccine Date Status Refusal Reason influenza virus vaccine, inactivated 08/29/16 Give n pneumococcal 13-valent vaccine 08/29/16 Given pneumococcal 23-valent vaccine 05/30/15 Given Medications apixaban 5 mg oral tablet 1 tablet = 5 mg, By Mouth, 2 times a day, # 60 tablet, 11 Refills, Maintenance, 11/02/19 11:56:58 AM EST, Tablet, [facility], 170, cm, 11/01/19 16:06:47 EST, Height, 74, kg, 10/30/19 19:41:06 EST, Dry Weight Start Date: 11/02/19 Stop Date: 10/27/20 Status: Ordered Quantity: 60.0 Unit: tablet Repeat number: 12 aspirin 81 mg oral tablet 1 tablet = 81 mg, By Mouth, Daily, # 90 tablet, 4 Refills, Maintenance, 03/12/19 4:12:45 PM EDT, Tablet, [facility] 1966 Start Date: 03/12/19 Stop Date: 06/04/20 Status: Ordered Quantity: 90.0 Unit: tablet Repeat number: 5 carvedilol 12.5 mg oral tablet 12.5 mg, 1, tablet, By Mouth, 2 times a day, # 180 tablet, Refills 4, Tot. Refills 4, Maintenance, 03/12/19 4:10:07 PM EDT, Route to Pharmacy Electronically, [facility] 1965 Start Date: 03/12/19 Stop Date: 06/04/20 Status: Ordered Quantity: 180.0 Unit: tablet Repeat number: 5 lisinopril 40 mg oral tablet 1 tablet = 40 mg, By Mouth, Daily, # 90 tablet, 4 Refills, Maintenance, 03/12/19 4:11:14 PM EDT, Tablet, [facility] 1965 Start Date: 03/12/19 Status: Ordered Quantity: 90.0 Unit: tablet Repeat number: 5 tamsulosin 0.4 mg oral capsule 0.4 mg, 1, capsule, By Mouth, Daily, for 30 days, # 30 capsule, Refills 0, Tot. Refills 0, Acute 11/20/24 2:40:00 PM EST, 10/21/24 2:40:00 PM EST, Route to Pharmacy Electronically, [facility] #[id number], Partial fill upon patient request if the prescription is for a schedule II opioid drug., 164.6, cm, 08/01/24 16:31:00 EDT, Height, 78, kg, 07/03/24 14:30:00 EDT, Dry Weight Start Date: 10/21/24 Stop Date: 11/20/24 Status: Ordered Quantity: 30.0 Unit: capsule Repeat number: 1 Problem List Condition Confirmation Course Effective Dates Status Health St atus Informant Atrial fibrillation - new 03/07 Confirmed Active Stroke, R internal capsule and putamen Confirmed 2014 Active CKD (chronic kidney disease) stage 3, GFR 30-59 ml/min Confirmed Active Diabetes Confirmed Active Hypertension Confirmed Active Vital Signs Most recent to oldest [Reference Range]: 1 2 Height 164.6 cm (08/01/24 4:31 PM) 164.6 cm (07/03/24 2:30 PM) Weight 78.0 kg (07/03/24 2:30 PM) Oxygen Saturation [94-100 %] 99 % (07/03/24 2:30 PM) Pulse Rate [55-90 bpm] 64 bpm (07/03/24 2:30 PM) Body Mass Index [18.5-24.99 kg/m2] 28.79 kg/m2 *H* (07/03/24 2:30 PM) Blood Pressure [90-138/55-84 mm Hg] 144/ 67mm Hg *H* (07/03/24 2:30 PM) Temperature [96.8-100.4 DegF] 97.5 DegF (07/03/24 2:30 PM) Mode of Delivery (Oxygen) Room air (07/03/24 2:30 PM) Blood pressure sites Arm, left (07/03/24 2:30 PM) Temperature Route Temporal (07/03/24 2:30 PM) Dry Weight 78.0 kg (07/03/24 2:30 PM) Weight Obtained Via Standing scale (07/03/24 2:30 PM) Dry Weight Obtained Via Standing scale (07/03/24 2:30 PM) Social History Social History Type Response Smoking Status Never smoker entered on: 05/30/15 Sex Sex Representation Male (finding) Patient Care team information Care Team Personnel Name: Rebeca ANTONY, Teo Position: [facility] ED RN W/OE and Tasks Member Role: Primary Care Nurse Name: Rex Avila MD Position: [facility] Outreach Member Role: PCP Address: [address] [place] [address] Rex [place], [place] [address] Telecom: Name: Edson Romero MD Position: [facility] Renal MD Member Role: [employer] Consult[employer] Physician Address: [address] [place], [place] [id number] [facility] [place] [address]- Telecom: Name: Margaret Rubin RN Position: [facility] RN Member Role: Primary Care Nurse Name: Brice Phillips RN Position: [facility] Hospital Pattern Chart Writer Member Role: Primary Care Nurse Care Team Related Persons Name: YAIMA PULIDO Insurance Providers Guarantor name: SAYDA PULIDO Health Plan Information #: 1 Payer: NA Member Number: [id number] Policy Number: NA Group Number: NA Health Plan Information #: 2 Payer: NA Member Number: [id number] Policy Number: NA Group Number: NA
== END 2024-11-24 15:18 | disposition home or self-care (01) ==
PROVIDERS: PCP Internal Medicine; Visit Provider Internal Medicine
DX: I48.0 Paroxysmal atrial fibrillation (principal); I63.411 Cerebral infarction due to embolism of right middle cerebral artery; R94.31 Abnormal electrocardiogram [ECG] [EKG]; I12.9 Hypertensive chronic kidney disease with stage 1 through stage 4 chronic kidney disease, or unspecified chronic kidney disease; N18.9 Chronic kidney disease, unspecified
CPT/HCPCS: 93010; 99214

== ENCOUNTER → 2024-11-24 14:07 | Outpatient (BNVA) | payer OTHER, SELFPAY | PROVIDERS: PCP Internal Medicine; Visit Provider Internal Medicine | DX: I48.0 Paroxysmal atrial fibrillation (principal); R94.31 Abnormal electrocardiogram [ECG] [EKG]; I12.9 Hypertensive chronic kidney disease with stage 1 through stage 4 chronic kidney disease, or unspecified chronic kidney disease; N18.9 Chronic kidney disease, unspecified; Z86.73 Personal history of transient ischemic attack (TIA), and cerebral infarction without residual deficits; Z79.01 Long term (current) use of anticoagulants; Z79.82 Long term (current) use of aspirin | CPT/HCPCS: 93005 ==

== ENCOUNTER → 2024-12-12 09:50 | Outpatient (REF) | payer OTHER, SELFPAY ==
--- NOTE | 2024-12-12 09:56 | CA_ITS ---
Transthoracic Echocardiogram Patient (Last, First, Middle): Solitario Stewart, Gender: Male Date of : 1950 Age: 74 Procedure Date: 12/12/2024 Procedure Type: Transthoracic Echocardiogram Location: OP Height: 170.18 cm Weight: 77.57 kg BSA: 1.89 m2 Heart Rate: bpm BP: 130 / 84 mmHg Knocker Out: PAOLA Referring MD: Isak Rincon MD Priest: Clayton Pugh MD Symptoms: I48.0 - Paroxysmal atrial fibrillation Study Quality: Adequate w contrast ECG Rhythm: Atrial Fibrillation Conclusions: - 1. Normal LV ejection fraction 65-70% with moderate lead increased LV wall thickness diffusely 2. Cardiac valvular Dopplers within normal limits, pulmonic valve not well visualized 3. No gross pericardial effusion Findings Procedure Information Contrast agent, definity, is being given per protocol without apparent complications. The quality of the study was technically difficult. The study quality is limited by lung artifact. Left Ventricle Normal left ventricular size and systolic function. There is moderately increased left ventricular wall thickness. The visually estimated ejection fraction is between 65-70%. Diastolic function is indeterminate on the basis of available data. Right Ventricle Normal right ventricular cavity size. Atria The left atrium is likely dilated. Interatrial shunt cannot be excluded. The right atrium was not well visualized. Aortic Valve Normal aortic valve structure and function. There is no aortic valve stenosis. There is no aortic valve regurgitation. Mitral Valve Normal mitral valve structure and function. There is trace mitral valve regurgitation. There is no mitral valve stenosis. Pulmonic Valve The pulmonic valve was not well visualized. Tricuspid Valve Likely normal tricuspid valve structure and function. Tricuspid regurgitation envelope is inadequate for calculation of right ventricular systolic pressure. Normal right atrial pressure. Great Vessels All visible segments of the aorta are normal in size. The pulmonary artery was not well visualized. There is no dilatation of the ascending aorta measuring 2.90 cm. Venous The inferior vena cava is normal in size and collapses greater than 50% with inspiration. Pericardium/Pleural There is no evidence of pericardial effusion. Prior Study Comparison Changes noted compared to prior study dated: 05/18/2022. patient noted to be in atrial fibrillation on this study Measurements 2D Linear Measurements IVSd: 1.59 0.6-0.9/0.6-1.0 cm LVIDd: 3.95 3.9-5.3/4.2-5.9 cm LVIDd Index: 2.09 2.4-3.2/2.2-3.1 cm/m2 LVIDs: 2.31 2.0-3.6 cm LVPWd: 1.05 0.7-1.1 cm LA Diam: 3.60 2.7-3.8/3.0-4.0 cm LAIDs Index: 1.90 1.5-2.3 cm/m2 LV Mass: 233.54 67-162/88-224 g LV Mass Index: 123.57 43-95/49-115 g/m2 LVOT Diam: 1.90 3.0+(-)1.3 cm 2D Systolic Function EF 2C: 67.90 >55% Mitral Valve MV Pk E: 0.86 Aortic Valve AoV Pk Glen: 1.39 AoV Pk Grad: 8.00 ARUNA: 2.25 LVOT LVOT Pk Glen: 1.10 LVOT Mn Glen: 0.72 LVOT VTI: 0.15 LVOT Pk Grad: 5.00 LVOT Mn Grad: 3.00 LVOT Diam: 1.90 LVOT Area: 2.84 Diastolic Function MV Pk E: 0.86 Right Ventricle TAPSE (mm): 5.90 TVS' Glen: 6.00 Tricuspid Valve RA Press: 3.00 Great Vessels Aorta Sinus of Valsalva: 2.40 2.0-3.5 cm Ao Asc: 2.90 2.1-3.4 cm Pulmonary Valve PV Pk Glen: 1.10 Peak PV Grad: 5.00 Updated in Other Vendor System with Status of Final Clayton Pugh MD electronically signed on 12/12/2024 2:14:34 PM with status of Final
== END ==
LOC: HO.CARD 09:50
PROVIDERS: PCP Internal Medicine; Visit Provider Internal Medicine
DX: I48.0 Paroxysmal atrial fibrillation (principal)
CPT/HCPCS: 93242; 93306; Q9957

== ENCOUNTER → 2024-12-12 09:56 | Outpatient (BNV) | payer OTHER, SELFPAY | PROVIDERS: PCP Internal Medicine; Visit Provider Internal Medicine Cardiovascular Disease | DX: I48.0 Paroxysmal atrial fibrillation (principal) | CPT/HCPCS: 93306 ==

== ENCOUNTER 2025-03-02 14:35 | Outpatient (AMB) | payer OTHER, SELFPAY ==
[2025-03-02 14:38] VITALS: BP 128/80; PULSE 58; TEMP 36.4; O2SAT 99; BMI 27.2
--- NOTE | 2025-03-02 14:38 | MHC.PC.OV ---
Vital Signs 03/02/25 14:38 Height 5 ft 7 in Weight 174 lb BMI 27.2 BP 128/80 Blood Pressure Location Lt brachial Position Sitting Pulse 58 Pulse Source Pulse Oximeter Temp 97.5 F Temp Source Axillary Pulse Oximetry (%) 99 Oxygen Delivery Method Room Air Intake Visit Reasons: Routine Editor City Required: No Accompanied by: Spouse Allergies No Known Allergies Allergy (Verified 03/02/25 15:09) Tobacco use date assessed: 03/02/25 Fall risk assessment: No Falls in past year Last assessed Fall Risk: 03/02/25 Dental Screening Dental Screen Date: 03/02/25 Did you have a dental visit in the last 12 months?: No Did you have a dental problem in the last 6 months where you did not have access to dental care?: No PFSH Medical History Other and unspecified hyperlipidemia CKD (chronic kidney disease) Essential hypertension Abnormal EKG 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 1. Little interest or pleasure in doing things: not at all 2. Feeling down, depressed, or hopeless: not at all 3. Trouble falling or staying asleep, or sleeping too much: not at all 4. Feeling tired or having little energy: not at all 5. Poor appetite or overeating: not at all 6. Feeling bad about yourself - or that you are a failure or have let yourself or your family down: not at all 7. Trouble concentrating on things, such as reading the newspaper or watching television: not at all 8. Moving or speaking so slowly that other people could have noticed. Or the opposite - being so fidgety or restless that you have been moving around a lot more than usual: not at all 9. Thoughts that you would be better off or of hurting yourself in some way: not at all Total score: 0 Source: Developed by Drs. Atilio Dunn, Neelima Shankar, Thomas Philippe and colleagues, with an educational rosendo from [employer]. Thrive Questionnaire Date Thrive assessed: 03/02/25 I am a: Patient Within the past 12 months, did the food you bought not last and you didn't have the money to get more?: Never true Within the past 12 months, did you worry whether your food would run out before you got money to buy more?: Never true Do you have trouble paying for medicines?: No Do you have trouble getting transportation to medical appointments?: No Do you have trouble paying your heating and electricity bill?: No Do you have trouble taking care of your child, family member or friend?: No Do you have trouble with day-to-day activities such as bathing, preparing meals, shopping, managing finances, etc.?: No Are you currently unemployed and looking for a job?: No Are you interested in more education?: No THRIVE Score: 0 AUDIT C Alcohol Use Questionnaire (AUDIT-C) 1. How often do you have a drink containing alcohol?: Never 3. How often do you have six or more drinks on one occasion?: Never Total Score: 0 JUSTO-7 AMB Questionnaire JUSTO-7 Date JUSTO - 7 assessed: 03/02/25 Feeling nervous, anxious, or on edge: 0 = Not at all Not being able to stop or control worryin = Not at all Worrying too much about different things: 0 = Not at all Trouble relaxin = Not at all Being so restless that it is hard to sit still: 0 = Not at all Becoming easily annoyed or irritable: 0 = Not at all Feeling afraid as if something awful might happen: 0 = Not at all Total JUSTO-7 score (0-4 normal; 5-9 mild; 10-14 moderate; 15-21 severe): 0 Source: Developed by Drs. Atilio Dunn, NeelimaThomas Ely and colleagues, with an educational rosendo from [employer]. Physical exam (Primary Care) Vital Signs: Last Vital Signs Temp 97.5 F 03/02/25 14:38 Pulse 58 03/02/25 14:38 BP 128/80 03/02/25 14:38 Pulse Ox 99 03/02/25 14:38 Oxygen Delivery Method Room Air 03/02/25 14:38 BMI result Body Mass Index 27.2 Tobacco/Smoking Status: Tobacco use Status Tobacco use date assessed 03/02/25 03/02/25 14:40 Patient Tobacco Use Status Never used Tobacco 03/02/25 14:40 e-Cigarette/Vaping Use Never Used 03/02/25 14:40 PHQ-9: PHQ-9 Score PHQ-9: Total score 0 03/02/25 15:12 Thrive Assessment: Date of Thrive Assessment Date Thrive assessed 03/02/25 03/02/25 14:40 Coding Level of Care Code New Pt Level 4 (93437) Complex EM visit Add On G2211 Diagnoses Essential hypertension I10 PAF (paroxysmal atrial fibrillation) I48.0 CKD (chronic kidney disease) N18.9 Assessment & Plan Assessment & Plan (1) Essential hypertension: Code(s): I10 - Essential (primary) hypertension Category: Medical Plan: BP is in range. Continue current meds (2) PAF (paroxysmal atrial fibrillation): Code(s): I48.0 - Paroxysmal atrial fibrillation Category: Medical Plan: Continue use of blood thinners (3) CKD (chronic kidney disease): Code(s): N18.9 - Chronic kidney disease, unspecified Category: Medical Plan: Blood work has been ordered. Plan History of Present Illness The patient is a 74-year-old male presenting with a request to minimize his current Type 2 Diabetes Mellitus medication, which is currently managed with metformin. He expressed a preference for reducing the number of medications in the future but has not made any immediate changes during this visit. He has a history of Chronic Kidney Disease and regularly sees his vmware consultant, Dr. Ash, for follow-up. His kidney function was last checked in February of the last year, with no dialysis required at this time. Additionally, the patient experienced two strokes and is on a blood thinner regimen. His cardiac history includes a myocardial infarction and his care involves periodic monitoring by a beam dyer at [place], with no current concerns. Other relevant social history includes prior living in [place] and cessation of smoking and drinking. Social History - Residence history includes living in [place] for a prolonged period. - Does not smoke or drink alcohol currently. 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 Review of Systems - Cardiovascular: Denies chest pain, reports history of myocardial infarction. - Renal: Reports Chronic Kidney Disease, no dialysis. - Endocrine: Reports Type 2 Diabetes Mellitus managed by metformin. - Neurological: Reports past history of stroke, currently on blood thinners without new neurological complaints. Physical Exam General: Cooperative and healthy appearing Nutritional Appearance: Well nourished Orientation/consciousness: Patient oriented x3 Limitations: No limitations Head: Normal to inspection General: Appearance normal, both eyes and all related structures Neck: Normal visual inspection Chest: Normal palpation of entire chest wall Respiratory: N ormal respiratory effort Neurology: Patient oriented x3, history of stroke, stroke (twice) Results Plan The plan involves conducting a thorough blood panel to reassess the patient's current glucose levels and kidney function in relation to his Type 2 Diabetes Mellitus. Follow-up is scheduled in three weeks to evaluate results and determine if any adjustments to his current metformin regimen are warranted. Continuing care with his vmware consultant and beam dyer for his Chronic Kidney Disease and cardiac health is recommended, with emphasis on maintaining existing treatments until further review with specialists. Patient was informed and verbally consented to the use of an ambient scribe for clinic note documentation during this visit. Discussion Notes During the consultation, I discussed with the patient his current health status and the management of his Type 2 Diabetes Mellitus with metformin. We talked about the possibility of reducing or changing his medication regimen over time, contingent upon satisfactory blood work results. The patient consented to a follow-up visit in three weeks to review these findings. I emphasized the importance of continuous management of his diabetes and cardiac health with his respective specialists to prevent exacerbations. The patient was agreeable to this plan of care and understands the necessity for regular monitoring. Patient Instructions - Undergo the scheduled blood work to evaluate kidney function and glucose levels. - Return for follow-up in three weeks to discuss test results. - Continue current medication regimen as prescribed. - Maintain regular appointments with vmware consultant and beam dyer. - Report any new or worsening symptoms promptly. Orders: Orders Complete Blood Count no Diff Today I10 - Essential (primary) hypertension, I48.0 - Paroxysmal atrial fibrillation, N18.9 - Chronic kidney disease, unspecified Basic Metabolic Panel Today I10 - Essential (primary) hypertension, I48.0 - Paroxysmal atrial fibrillation, N18.9 - Chronic kidney disease, unspecified Liver Panel Today I10 - Essential (primary) hypertension, I48.0 - Paroxysmal atrial fibrillation, N18.9 - Chronic kidney disease, unspecified Thyroid Stimulating Hormone Today I10 - Essential (primary) hypertension, I48.0 - Paroxysmal atrial fibrillation, N18.9 - Chronic kidney disease, unspecified Hemoglobin A1c Today I10 - Essential (primary) hypertension, I48.0 - Paroxysmal atrial fibrillation, N18.9 - Chronic kidney disease, unspecified Lipid Panel Today I10 - Essential (primary) hypertension, I48.0 - Paroxysmal atrial fibrillation, N18.9 - Chronic kidney disease, unspecified UA and rflx microscopic Today I10 - Essential (primary) hypertension, I48.0 - Paroxysmal atrial fibrillation, N18.9 - Chronic kidney disease, unspecified Microalbumin, Random (w Creat) Today I10 - Essential (primary) hypertension, I48.0 - Paroxysmal atrial fibrillation, N18.9 - Chronic kidney disease, unspecified
--- OUTSIDE RECORDS SUMMARY | 2025-03-02 16:58 | XMS_ITS | Clinical Summary ---
Author Organization [facility] Address [address] [place] [id number] Phone Care Team Providers Care Plant Physiologist Name Role Phone Rex Avila MD Primary Care Provider [phone] Allergies No known active allergies Medications apixaban (ELIQUIS) 5 MG tablet Take 1 tablet by mouth 2 (two) times a day Active aspirin (ST DANDRE) 81 MG EC tablet Take 1 tablet by mouth 1 (one) time each day Active pravastatin (PRAVACHOL) 40 MG tablet Take 1 tablet by mouth 1 (one) time each day Active carvedilol (COREG) 12.5 MG tablet Take 12.5 mg by mouth in the morning and 12.5 mg in the evening. Take with meals. 02/04/2021 Active allopurinol (ZYLOPRIM) 100 MG tablet Take 200 mg by mouth 1 (one) time each day 03/11/2021 Active losartan (COZAAR) 25 MG tablet Take 25 mg by mouth 1 (one) time each day 02/06/2023 Active dilTIAZem CD (CARDIZEM CD) 120 MG 24 hr capsule Take 1 capsule by mouth 1 (one) time each day 09/19/2023 Active metFORMIN XR (GLUCOPHAGE-XR) 500 MG 24 hr tablet Take 500 mg by mouth in the morning and 500 mg in the evening. 02/22/2024 Active Active Problems Problem Noted Date Diagnosed Date Diabetes mellitus, not otherwise specified 04/06 Hypertension 03/31/2021 Atrial fibrillation, not otherwise specified Dyslipidemia 03/31/2021 Cerebrovascular accident 03/31/2021 Benign prostatic hyperplasia 03/31/2021 Hypertensive nephrosclerosis 03/30/2021 Stage 3b chronic kidney disease 03/30/2021 Resolved Problems Problem Noted Date Diagnosed Date Resolved Date Atrial fibrillation 05/02/2022 10/07/20 Family History Relation Status Comments Father Social History Tobacco Use Types Packs/Day Years Used Date Smoking Tobacco: Never Smokeless Tobacco: Never Alcohol Use Standard Drinks/Week Comments Yes 0 (1 standard drink = 0.6 oz pure alcohol) Alcoholic Drinks/day: Occasional social drink Sex and Gender Information Value Date Recorded Sex Assigned at Not on file Legal Sex Male 4:42 PM EST Gender Identity Not on file Sexual Orientation Not on file Last Filed Vital Signs Vital Sign Reading Time Taken Comments Blood Pressure 153/72 04/07/2024 7:57 AM EDT Pulse 72 04/07/2024 7:57 AM EDT Temperature - - Respiratory Rate - - Oxygen Saturation 97% 04/07/2024 7:57 AM EDT Inhaled Oxygen Concentration - - Weight 80.7 kg (178 lb) 04/07/2024 7:57 AM EDT Height 170.2 cm (5' 7 ) 04/07/2024 7:57 AM EDT Body Mass Index 27.88 04/07/2024 7:57 AM EDT Plan of Treatment Health Maintenance Due Date Last Done Comments Colorectal Cancer Screening: Annual FOBT 2000 Colorectal Cancer Screening: Colonoscopy 2000 Colorectal Cancer Screening: Sigmoidoscopy 2000 Pneumococcal Vaccine: 50+ Years (3 of 3 - PPSV23, PCV20 or PCV21) 2020 08/29/2016, 2015 Diabetes: Hemoglobin A1C 10/10/2023 021, 02/14/2021 Diabetes: Ophthalmology Exam 10/10/2023 Diabetes: Pedal Pulse Checked 10/10/2023 Diabetes: Sensory Foot Exam 10/10/2023 Diabetes: Visual Foot Exam 10/10/2023 Influenza Vaccine (Season Ended) 2025 Pneumococcal Vaccine: Peds ( 0 to 5 Years) and At-Risk Patients (6 to 49 Years) Discontinued 08/29/2016, 2015 Hepatitis B Vaccine Aged Out No longe r eligible based on patient's age to complete this topic Procedures Procedure Name Priority Date/Time Associated Diagnosis Comments HEMOGLOBIN A1C Routine 09/07/2021 8:37 AM EDT from Last 3 Months or Most Recently Relevant to Health Maintenance Results * (ABNORMAL) Hemoglobin A1c (09/07/2021 8:37 AM EDT) Hemoglobin A1C 6.3(H) (4.0-5.6) % [facility] Comment: MONITORING: In known diabetic patients, hemoglobin A1c targets should be discussed with health care provider. DIAGNOSTIC USE: ??The [place] Diabetes Association (ADA) and the World Health Organization (WHO) recommend the use of HbA1c to diagnose diabetes using a threshold of 6.5%. Patients who have an HbA1c between 5.7% and 6.4% are considered at increased risk for developing diabetes in the future. CAUTION: Falsely low HbA1c results may be observed in patients with hemolytic anemia, homozygous forms of abnormal hemoglobin (e.g. SS, CC, SC), , recent blood loss or hemoglobin F greater than 7%. Fructosamine may be used as an alternate test in these cases. REFERENCE: ADA: Standards of Medical Care in Diabetes 2020, The Journal of Clinical and Applied Research and Education Volume 43, Supplement 1 Testing performed or reported by [facility], a Service of [facility], [address] [place] [address] Javier Costa MD, Conveyor Tender [facility]# [id number] 09/07/2021 8:37 AM EDT 09/07/2021 8:44 AM EDT us Edson Henry MD LAB BLOOD ORDERABLES Final Re sult [facility] from Last 3 Months or Most Recently Relevant to Health Maintenance Insurance [employer] Care Teams Plant Physiologist Relationship Specialty Start Date End Date Rex Avila MD [address] [place] [address] [id number] [place], [place] PCP - General 11/29/20
--- OUTSIDE RECORDS SUMMARY | 2025-03-02 16:58 | XMS_ITS | Clinical Summary ---
Author Organization [facility] it Address [address] [place] [address] Care Team Providers Care Flight Attendant/Inflight Supervisor Name Role Phone Unavailable Primary Care Provider Unavailabl e Social History Tobacco Use Types Packs/Day Years Used Date Smoking Tobacco: Never Assessed Sex and Gender Information Value Date Recorded Sex Assigned at Not on file Legal Sex Male 7:57 AM EST Gender Identity Not on file Sexual Orientation Not on file Plan of Treatment Health Maintenance Due Date Last Done Comments DTaP,Tdap,and Td Vaccines (1 - Tdap) 1970 Pneumococcal Vaccine: 50+ Ye ars (1 of 2 - PCV) 1970 Zoster Vaccines (1 of 2) 2001 Abdominal Aortic Aneurysm (A AA) Screen 06/21/2024 Cholesterol Screening (Lipid Panel) 06/21/2024 Colorectal Cancer Screening: Colonoscopy 06/21/2024 Depression Screening 06/21/2024 Falls Risk Assessment 06/21/2024 Hepatitis C Screening 06/21/2024 Social Influencers of Health Screening 06/21/2024 COVID-19 Vaccine ( - 2023-2 5 season) 2024 Influenza Vaccine (Season Ended) 2025 RSV Immunization Adult Patie nts (1 - 1-dose 75+ series) 2026 HIB Vaccines Aged Out No longer eligi ble based on patient's age to complete this topic HPV Vaccines Aged Out No longer eligi ble based on patient's age to complete this topic Hepatitis A Vaccines Aged Out No long er eligible based on patient's age to complete this topic Hepatitis B Vaccines Aged Out No long er eligible based on patient's age to complete this topic IPV Vaccines Aged Out No longer eligi ble based on patient's age to complete this topic MMR Vaccines Aged Out No longer eligi ble based on patient's age to complete this topic Meningococcal ACWY Vaccine Aged Out N o longer eligible based on patient's age to complete this topic Meningococcal B Vaccine Aged Out No l onger eligible based on patient's age to complete this topic RSV Immunization Patients Un lena 20 months Aged Out No longer eligible b ased on patient's age to complete this topic Varicella Vaccines Aged Out No longer eligible based on patient's age to complete this topic
== END 2025-03-02 15:50 | disposition home or self-care (01) ==
LOC: HO.HMCHD 14:35
PROVIDERS: PCP Internal Medicine; Visit Provider Internal Medicine
DX: I12.9 Hypertensive chronic kidney disease with stage 1 through stage 4 chronic kidney disease, or unspecified chronic kidney disease (principal); I48.0 Paroxysmal atrial fibrillation; N18.9 Chronic kidney disease, unspecified

== ENCOUNTER → 2025-03-02 14:35 | Outpatient (BNVA) | payer OTHER, SELFPAY | PROVIDERS: PCP Internal Medicine; Visit Provider Internal Medicine ==

== ENCOUNTER 2025-07-21 10:25 | Inpatient (IN) | payer MEDICARE, SELFPAY ==
[2025-07-21] VITALS (7 sets, daily range): BP systolic 153–180; BP diastolic 72–110; PULSE 73–107; RESP 14–18; TEMP 36.4–36.9; O2SAT 96–98; BMI 28.1; BMI 27.9
--- NOTE | ~2025-07-21 | MR_ITS ---
CLINICAL HISTORY: TIA with residual deficits from prior CVA MR Brain with and without gadolinium Comparison: CT/IL/SR - CT HEAD WITHOUT IV CONTRAST STROKE - 07/21/25 10:35 EDT Findings: Acute anterolateral right frontal lobe and right insular cortex infarct with associated petechial hemorrhage. There is sulcal crowding and mild mass effect on the frontal horn of the right lateral ventricle. No midline shift or downward herniation. Chronic right parietal, right temporal lobe and bilateral cerebellar infarcts. Periventricular and subcortical T2 white matter hyperintensities likely chronic small-vessel ischemic changes. Vascular flow voids are intact. Orbital contents are unremarkable. The sinuses and mastoid air cells are clear. 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 IMPRESSION: 1. Acute right frontal lobe and insular cortex infarct with petechial hemorrhage and associated mass effect on right frontal horn with sulcal crowding. No midline shift or downward herniation. 2. Chronic infarcts in right parietal and temporal lobes, and bilateral cerebellum. This document has been electronically signed by: Shar Danielle MD on 07/22/2025 18:12:13
--- NOTE | ~2025-07-21 | US_ITS ---
CLINICAL HISTORY: TIA US Bilateral Carotid Duplex Comparison: None provided Findings: No significant plaque within the common carotid arteries. No significant plaque within the carotid bulbs. Normal color doppler and waveforms morphology. Peak systolic velocities: Right CCA: 72 cm/s. Right ICA: 104 cm/s. ICA/CCA ratio: Normal. Right ECA: 109 cm/s. Right vertebral artery flow antegrade. Left CCA: 188 cm/s. Left ICA: 77 cm/s. ICA/CCA ratio: Normal. Left ECA: 83.6 cm/s. Left vertebral artery flow antegrade. IMPRESSION: Normal carotid velocities, no significant stenosis (0-49% stenosis). This document has been electronically signed by: Shar Danielle MD on 07/22/2025 20:06:34
--- NOTE | ~2025-07-21 | CT_ITS ---
EXAMINATION: CT HEAD WITHOUT CONTRAST (STROKE PROTOCOL) CLINICAL INFORMATION: Stroke protocol. Slurred speech and confusion. History of strokes. COMPARISON: None available. TECHNIQUE: Contiguous axial imaging was performed from the skull base to vertex without intravenous administration of contrast. This CT examination was performed using dose optimization techniques as appropriate, variously including the following: *Automated exposure control *Adjustment of mA and/or kV according to patient size (this includes techniques or standardized protocols for targeted exams where dose is matched to indication/reason for exam; i.e. extremities or head) *Use of iterative reconstruction technique FINDINGS: There is no evidence of intracranial hemorrhage or extra-axial fluid collection. There is no mass effect, or edema. No CT evidence of acute territorial infarct. Ventricles, sulci, and cisterns are normal in size and configuration for patient age. No hydrocephalus. No midline shift. Negative hyperdense MCA sign. Negative insular ribbon sign. There is an old partial territory right MCA infarct with encephalomalacia present. There are numerous old lacunar type infarcts in both cerebellar hemispheres. Patchy periventricular and deep white matter hypoattenuation is consistent with mild to moderate small vessel ischemic changes. Normal pituitary. Atheromatous calcification of the bilateral carotid siphons and V4 segments vertebral arteries bilaterally. Globes and orbital contents image normally. No extracranial soft tissue abnormalities. The paranasal sinuses, mastoid air cells, and tympanic cavities are normally aerated. No suspicious bony abnormalities. There are no acute fractures evident. CT/CT head for STROKE IMPRESSION: 1. No acute intracranial abnormality. No CT evidence of acute territorial infarction. 2. Old right MCA territory infarct with associated encephalomalacia. 3. Old bilateral cerebellar lacunar type infarcts. This critical result was discussed with Dr. Katelin Blankenship of the [facility] at 10:49 AM, 07/21/2025. It was ascertained that the content and urgency of the report was understood at the time of direct communication. Electronically signed by: Elvis Mayo MD 07/21/2025 10:54 AM EDT
--- NOTE | 2025-07-21 10:28 | ECG_ITS ---
Test Reason : STROKE SYMPTOMS Blood Pressure : */* mmHG Vent. Rate : 93 BPM Atrial Rate : * BPM P-R Int : * ms QRS Dur : 94 ms QT Int : 394 ms P-R-T Axes : * -10 162 degrees QTcB Int : 489 ms Atrial fibrillation Left ventricular hypertrophy with repolarization abnormality ( R in aVL , Romhilt-Nicholson ) Prolonged QT Abnormal ECG No previous ECGs available Referred By: Katelin Blankenship Electronically Signed By: Geovani Spear
[2025-07-21 10:38] LABS: Prothrombin Time Whole Bld POC 11.9 sec (11.1-13.5); ~PT, ~INR - Anti Coag Clinic 1.0 (0.9-1.1)
[2025-07-21 10:38] LABS: Glucose, Whole Blood 276 mg/dL (60-115)
[2025-07-21 10:54] LABS: MANUAL DIFF FLAG NO
[2025-07-21 11:02] LABS: Hematocrit 34.9 % (42.0-52.0); Hemoglobin 12.0 g/dl (14.0-18.0); Imm Gran Abs Auto 0.01 X10*3/uL (0.00-0.03); Imm Gran Pct Auto 0.2 % (0.0-0.4); Lymphocytes Absolute Auto 1.6 X10*3/uL (1.2-4.9); Mean Corpuscular HGB Conc 34.4 g/dl (31.0-36.0); Mean Corpuscular Hemoglobin 27.8 pg (27.0-33.0); Mean Corpuscular Volume 80.8 fL (80.0-98.0); NRBC Abs Auto 0.000 X10*3/uL (0.0-0.012); NRBC Pct Auto 0.0 /100WBC (0.0-0.2); Platelet Count 165 X10*3/uL (160-400); Red Blood Count 4.32 X10*6/uL (4.60-5.80); White Blood Count 4.4 X10*3/uL (4.8-10.8)
--- NOTE | 2025-07-21 11:15 | MHC.STROKE ---
Notified of stroke protocol in ED upon patient arrival. Met with patient and . reports slurred speech starting at approx 0945 and lasted approx 10-15 minutes. The reports that speech is improved now in the ED. Patient reports going to bed at 2230 and woke at 0700. Per , patient was speaking normally upon waking. reports hx of CVA x 2. Pt is supposed to be taking Eliquis. He reports that he has been taking it however it is unclear if this is actually the case. reporting he manages his own meds . Mild left sided facial droop appreciated. This is residual per from previous strokes. Pt is speaking clearly when asked questions. equal strength in arms/legs, no weakness appreciated. no palmar drift. Stroke Education reviewed with patient and . Pamphlet provided/reviewed. All questions answered. Risk factors including medical hx, social hx, diet, excercise, medications reviewed. Will continue to assist as needed.
--- NOTE | 2025-07-21 11:16 | ED_ITS ---
HPI - Neuro Symptoms/Deficit General Chief Complaint: Stroke Stated Complaint: Stroke symptoms Time Seen by Provider: 07/21/25 10:28 Source: patient, family and old records reviewed Mode of arrival: ambulatory Limitations: no limitations History of Present Illness ED Provider: ELA BHAKTA Narrative: 75 yo male with PMH of CKD, CVA, PAF, HTN - prior R MCA with L sided facial droop, PAF on eliquis there is concern he hasn't taken it but he is adamant he is and took it this AM. His states he manages the medications and she does not. They were just in the car when he started with slurred speech. It just started. She notes that his symptoms have improved since arrival. He denies any injury, illness, fall, headaches. He states he is fine on arrival. Initial discussion seemed to have some slurred speech but this was rapidly improved. Onset (ago): minute(s) (10) Timing confirmed by: family member Location: speech History of same: No Severity: mild Quality: improving Relieving factors: none Exacerbating factors: none Context: sudden onset On Anticoagulants: Yes Associated symptoms: denies other symptoms Treatments Prior to Arrival: none Related Data Home Medications ?Medication ?Instructions ?Recorded ?Confirmed aspirin 81 mg tablet,delayed 81 mg PO DAILY 11/25/20 0 11/24/24 release pravastatin 40 mg tablet 40 mg PO BEDTIME 11/25/20 atorvastatin 10 mg tablet 10 mg PO DAILY 11/24/2405/13 metformin 500 mg tablet 500 mg PO BID 11/24/2411/24 Previous Rx's ?Medication ?Instructions ?Recorded diltiazem HCl 120 mg 120 mg PO DAILY #90 caps capsule,extended release 24 hr carvedilol 12.5 mg tablet 12.5 mg PO BID #180 tabs 10/13 apixaban 5 mg tablet 5 mg PO BID 90 days #180 tab s 03/17/25 Allergies Allergy/AdvReac Type Severity Reaction Status Date / Time No Known Allergies Allergy Verified 07/21/25 10:41 Review of Systems 2 Review of Systems: Constitutional : No Fever, No Chills, No Fatigue ENT/Mouth : No sore throat, No Rhinorrhea Eyes: No Eye Pain, No Swelling, No Redness Cardiovascular : No Chest Pain, No SOB, No Dyspnea on Exertion Respiratory : No Cough, No Sputum Gastrointestinal : No Nausea, No Vomiting, No Diarrhea, No abdominal Pain Genitourinary : No Dysuria, No Urinary Frequency, No Hematuria, Musculoskeletal : No joint pain, No Myalgias, No Joint Swelling Skin : No Skin Lesions, No rash Neuro : No Weakness, No Numbness, No Dizziness, no Headache All other systems reviewed and are negative [facility] Past Medical History Attestation statement: The following information was validated with the patient. Source: old records reviewed Medical History Other and unspecified hyperlipidemia CKD (chronic kidney disease) Essential hypertension Abnormal EKG Cerebrovascular accident (CVA) due to embolic occlusion of right middle cerebral artery PAF (paroxysmal atrial fibrillation) Surgical History No pertinent past surgical history Family History Family History Father HTN (hypertension) Mother HTN (hypertension) Social History Social History Housing: House Patient Tobacco Use Status: Never used Tobacco e-Cigarette/Vaping Use: Never Used Advance Directives: No Advance Directives Information Provided: Yes Do you have a plan to hurt others: No Plan service: No Current occupational status: retired Cognitive needs: No Hearing needs: No Vision needs: No Physical Exam 2 Vital Signs: Vital Signs: Last Vital Signs Temp 97.5 F 07/21/25 12:02 Pulse 93 07/21/25 12:02 Resp 18 07/21/25 12:02 BP 159/72 H 07/21/25 12:02 Pulse Ox 96 07/21/25 12:02 O2 Del Method Room Air 07/21/25 12:02 BMI result Body Mass Index 28.1 Appearance: Alert. Oriented X3. No acute distress. Eyes: Pupils equal, round and reactive to light. ENT: Pharynx normal. atraumatic Neck: Normal inspection. Neck supple. CVS: Normal heart rate and rhythm. Pulses normal. Respiratory: No respiratory distress. Breath sounds normal. Abdomen: Soft and nontender. Skin: Skin warm and dry. Normal skin color. Extremities: No lower extremity edema. Neuro: Oriented X 3. No motor deficit. No sensory deficit. L sided facial droop no slurred speech Medical Decision Making Medical Decision Making MDM Narrative: 75 yo male with PMH of CVA, PAF, HTN - prior R MCA with L sided facial droop, PAF on eliquis now here with improving slurred speech. He has hx of CKD and symptoms improving which was only slurred speech will hold CTA as I do not suspect LVO. His NIH is 1 but due to old L facial droop and symptoms resolved on arrival not a candidate for TNK. Will obtain labs, CT scan for ICH, I am concerned if he is not taking his eliquis and they are not able to get it if that was the case we need to work him up for TIA. Work up pending possible stroke/TIA. Differential Diagnosis Differential Diagnoses: The differential diagnosis associated with the presentation includes TIA, stroke, non compliance with Admission/Observation Consideration of admission/observation: Escalation of care including admission/observation considered admit for stroke management Consult Healthcare Provider Management of the patient was discussed with: Hospitalist (will admit) and Pulverizer Operator (neurology reccs tele, MRI, eliquis management) Lab Data [facility] Lab Attestation statement: I reviewed the patient's lab results. 07/21/25 10:36 07/21/25 10:36 Labs: Lab Results 07/21/25 07/21/25 07/21/25 Range/Units 10:32 10:34 10:36 WBC 4.4 L (4.8-10.8) X10*3/uL RBC 4.32 L (4.60-5.80) X10*6/uL Hgb 12.0 L (14.0-18.0) g/dl Hct 34.9 L (42.0-52.0) % MCV 80.8 (80.0-98.0) fL MCH 27.8 (27.0-33.0) pg MCHC 34.4 (31.0-36.0) g/dl RDW 13.3 (11.0-16.0) % Plt Count 165 (160-400) X10*3/uL MPV 10.6 (9.4-12.4) fL Immature Gran % (Auto) 0.2 (0.0-0.4) % Neut % (Auto) 54.4 (45-73) % Lymph % (Auto) 35.3 (20-40) % [place] % (Auto) 9.0 (2-11) % Eos % (Auto) 0.9 (0-4) % Baso % (Auto) 0.2 (0-2) % Lymph # (Auto) 1.6 (1.2-4.9) X10*3/uL [place] # (Auto) 0.4 (0.1-1.2) X10*3/uL Eos # (Auto) 0.0 (0.0-0.4) X10*3/uL Baso # (Auto) 0.0 (0.0-0.2) X10*3/uL Abs Immat Gran (auto) 0.01 (0.00-0.03) X10*3/uL Absolute Neuts (auto) 2.4 (2.0-8.3) x10*3/uL Absolute Nucleated RBC 0.000 (0.0-0.012) X10*3/uL Nucleated RBC % (auto) 0.0 (0.0-0.2) /100WBC Whole Blood PT 11.9 (11.1-13.5) sec Whole Blood INR 1.0 (0.9-1.1) Hold Blue Top SEE NOTE Sodium 142 (135-145) mmol/L Potassium 4.4 (3.3-5.1) mmol/L Chloride 108 (96-108) mmol/L Carbon Dioxide 24 (22-29) mmol/L Anion Gap 14 (12-20) BUN 25 H (9-16) mg/dL Creatinine 1.63 H (0.5-1.4) mg/dL Estim Creat Clear Calc 39.2 Estimated GFR 42 POC Glucose 276 H (60-115) mg/dL Random Glucose 294 H (60-115) mg/dL Calcium 9.4 (8.4-10.2) mg/dL Magnesium 2.1 (1.6-2.6) mg/dL Total Bilirubin 0.3 (0.0-1.0) mg/dL Direct Bilirubin 0.1 (0.0-0.5) mg/dL AST 24 (5-37) U/L ALT 21 (0-40) U/L Alkaline Phosphatase 105 (39-117) U/L Troponin I High Sens 11.9 (<3.5-35.0) ng/L B-Natriuretic Peptide 371 H (<100) pg/mL Total Protein 6.8 (6.5-8.0) g/dL Albumin 3.9 (3.5-5.0) g/dL Urine Color Urine Appearance Urine pH (5.0-9.0) Ur Specific [place] (1.005-1.025) Urine Protein (Neg-Trace) mg/dL Urine Glucose (UA) (Negative) mg/dL Urine Ketones (Negative) mg/dL Urine Blood (Negative) Urine Nitrite (Negative) Ur Leukocyte Esterase (Negative) Urine RBC (0-2) /HPF Urine WBC (0-5) /HPF Ur Squamous Epith Cells (0-2) /HPF Urine Bacteria (None Seen) Hyaline Casts (0-2) /LPF 07/21/25 Range/Units 11:34 WBC (4.8-10.8) X10*3/uL RBC (4.60-5.80) X10*6/uL Hgb (14.0-18.0) g/dl Hct (42.0-52.0) % MCV (80.0-98.0) fL MCH (27.0-33.0) pg MCHC (31.0-36.0) g/dl RDW (11.0-16.0) % Plt Count (160-400) X10*3/uL MPV (9.4-12.4) fL Immature Gran % (Auto) (0.0-0.4) % Neut % (Auto) (45-73) % Lymph % (Auto) (20-40) % [place] % (Auto) (2-11) % Eos % (Auto) (0-4) % Baso % (Auto) (0-2) % Lymph # (Auto) (1.2-4.9) X10*3/uL [place] # (Auto) (0.1-1.2) X10*3/uL Eos # (Auto) (0.0-0.4) X10*3/uL Baso # (Auto) (0.0-0.2) X10*3/uL Abs Immat Gran (auto) (0.00-0.03) X10*3/uL Absolute Neuts (auto) (2.0-8.3) x10*3/uL Absolute Nucleated RBC (0.0-0.012) X10*3/uL Nucleated RBC % (auto) (0.0-0.2) /100WBC Whole Blood PT (11.1-13.5) sec Whole Blood INR (0.9-1.1) Hold Blue Top Sodium (135-145) mmol/L Potassium (3.3-5.1) mmol/L Chloride (96-108) mmol/L Carbon Dioxide (22-29) mmol/L Anion Gap (12-20) BUN (9-16) mg/dL Creatinine (0.5-1.4) mg/dL Estim Creat Clear Calc Estimated GFR POC Glucose (60-115) mg/dL Random Glucose (60-115) mg/dL Calcium (8.4-10.2) mg/dL Magnesium (1.6-2.6) mg/dL Total Bilirubin (0.0-1.0) mg/dL Direct Bilirubin (0.0-0.5) mg/dL AST (5-37) U/L ALT (0-40) U/L Alkaline Phosphatase (39-117) U/L Troponin I High Sens (<3.5-35.0) ng/L B-Natriuretic Peptide (<100) pg/mL Total Protein (6.5-8.0) g/dL Albumin (3.5-5.0) g/dL Urine Color Yellow Urine Appearance Clear Urine pH 7.0 (5.0-9.0) Ur Specific [place] 1.010 (1.005-1.025) Urine Protein 30 (1+) H (Neg-Trace) mg/dL Urine Glucose (UA) 500 H (Negative) mg/dL Urine Ketones Negative (Negative) mg/dL Urine Blood Negative (Negative) Urine Nitrite Negative (Negative) Ur Leukocyte Esterase Negative (Negative) Urine RBC 0-2 (0-2) /HPF Urine WBC 0-5 (0-5) /HPF Ur Squamous Epith Cells 0-2 (0-2) /HPF Urine Bacteria None Seen (None Seen) Hyaline Casts 0-2 (0-2) /LPF Independent Interpretation I performed an independent interpretation of an: EKG and CT Scan (old stroke no ICH) Interpretation: Rate: 93 Rhythm: afib Cavalier: left, LVH Normal QRS complex. ST T wave : inverted t waves V4-V6, I and aVL, no JAYCEE qTC: 489 prior studies: hx of same in prior stress test The study has been interpreted contemporaneously by me. . Radiology Impression Discussion of test interpretation with radiology: I have reviewed the radiologist's reading. Independent Historian Clinical information obtained from an independent historian. History obtained from or confirmed by: Spouse External Record Review External record reviewed: Inpatient record and Outpatient record NIH Stroke Scale Internal: Initial- Upon Arrival Level of Consciousness: Alert Level of Consciousness Questions: Answers both questions correctly Level of Consciousness Commands: Performs both tasks correctly Best Gaze: Normal Visual: No visual loss Facial Palsy: Minor paralyis Motor Arm (Right): No drift Motor Arm (Left): No drift Motor Leg (Right): No drift Motor Leg (Left): No drift Limb Ataxia: Absent Sensory: Normal Best Language: No aphasia Dysarthia: Normal Extinction and Inattention: No abnormality Score: 1 Discharge Plan Discharge Clinical Impression: Transient cerebral ischemia Patient Disposition: Admitted As Inpatient Print Language: Bulgarian
[2025-07-21 11:24] LABS: B Type Natriuretic Peptide 371 pg/mL (<100)
[2025-07-21 11:25] LABS: Troponin-I High Sensitivity 11.9 ng/L (<3.5-35.0)
[2025-07-21 11:27] LABS: Alanine Aminotransferase 21 U/L (0-40); Albumin Level 3.9 g/dL (3.5-5.0); Alkaline Phosphatase 105 U/L (39-117); Anion Gap 14 (12-20); Aspartate Amino Transferase 24 U/L (5-37); Blood Urea Nitrogen 25 mg/dL (9-16); Calcium 9.4 mg/dL (8.4-10.2); Carbon Dioxide 24 mmol/L (22-29); Chloride 108 mmol/L (96-108); Creatinine Clr Calc Pharmacy 39.2; Estimated Glomerular Filt Rate 42; Magnesium 2.1 mg/dL (1.6-2.6); Potassium 4.4 mmol/L (3.3-5.1); Sodium 142 mmol/L (135-145); Total Protein 6.8 g/dL (6.5-8.0)
[2025-07-21 11:39] LABS: Appearance Urine Clear; Glucose Urine UA 500 mg/dL (Negative); PH 7.0 (5.0-9.0); Specific Gravity - Urine 1.010 (1.005-1.025); UMIC TRIGGER UACC YES
--- OUTSIDE RECORDS SUMMARY | 2025-07-21 12:33 | XMS_ITS | Clinical Summary ---
Author Organization [facility] Address [address] [place] [phone] Phone Care Team Providers Care News Broadcaster Name Role Phone Rex Avila MD Primary Care Provider [phone] Allergies No known active allergies Medications apixaban [...] Vaccine: 50+ Years (3 of 3 - PCV20 or PCV21) 2020 08/29/2016, 2015 Diabetes: Hemoglobin A1C 10/10/2023 021, 02/14/2021 Diabetes: Ophthalmology Exam 10/10/2023 Diabetes: Pedal Pulse Checked 10/10/2023 Diabetes: Sensory Foot Exam 10/10/2023 Diabetes: Visual Foot Exam 10/10/2023 Influenza Vaccine (#1) 2025 Pneumococcal Vaccine: Peds ( 0 to [...] AM EDT) Hemoglobin A1C 6.3(H) (4.0-5.6) % [facility] Comment: MONITORING: In known diabetic patients, hemoglobin A1c targets should be discussed with health care provider. DIAGNOSTIC USE: The [place] Diabetes Association (ADA) and the World Health [...] Supplement 1 Testing performed or reported by [facility], a Service of [facility], [address] [place] [address] Javier Costa MD, Filament Welder [facility]# [id number] 09/07/2021 8:37 AM EDT 09/07/2021 8:44 AM EDT us Edson Henry MD LAB BLOOD ORDERABLES Final Re sult [facility] from Last 3 Months or Most Recently Relevant to Health Maintenance Insurance [employer] Care Teams News Broadcaster Relationship Specialty Start Date End Date Rex Avila MD [address] [place] [address] DRIVE [id number] [place], [place] PCP - General 11/29/20
--- OUTSIDE RECORDS SUMMARY | 2025-07-21 12:33 | XMS_ITS | Clinical Summary ---
Author Organization [facility] [address] it Address [address] [place] [address] Care Team Providers Care Cutting Machine Tender Decorative Name Role Phone Unavailable Primary Care Provider [...] Pneumococcal Vaccine: 50+ Ye ars (1 of 1 - PCV) 2001 Zoster Vaccines (1 of 2) 2001 Abdominal Aortic Aneurysm (A AA) Screen 06/21/2024 Cholesterol Screening (Lipid Panel) 06/21/2024 Colorectal Cancer Screening: Colonoscopy 06/21/2024 Falls Risk Assessment 06/21/2024 Hepatitis C Screening 06/21/2024 Social Influencers of Health Screening 06/21/2024 Depression Screening 11/19/2024 COVID-19 Vaccine ( - 2023-2 5 season) 2025 Influenza Vaccine (#1) 2025 RSV Immunization Adult Patie nts (1 [...]
--- NOTE | 2025-07-21 13:13 | PC.NURSE ---
patient presents to the ED with , states she was driving in the car when patient swords seemed slurred. there is a question of missed doses of eliquis. patient states that the slurred speech seems to have resolved. patients states at baseline he is alert and oriented x3 and ambulatory without assistive device. patients states patient has left sided droop due to prior CVA's. patients states patient seems more quiet now. patient medicated per JAN, when patient took po aspirin, this RN handed him water and pill in pill cup, patient poured water into pill cup prior to taking pill. patients states patient does not normally do that prior to taking pills.
[2025-07-21 13:29] LABS: Hemoglobin A1C 236.5788 umol/L; Total Hemoglobin (HGBA1C) 3138.9454 umol/L
[2025-07-21 13:30] LABS: Cholesterol 131 mg/dL (<200); HDL Cholesterol 41 mg/dL (>40); Triglycerides 122 mg/dL (<150)
--- NOTE | 2025-07-21 15:05 | PHA.MEDREC ---
Addendum entered by Steve Edgar PharmD 07/21/25 15:09: reviewed Original Note: Pharmacy Consult ? Medication Reconciliation Pharmacy has completed the medication reconciliation. Spoke with pt and he was a poor historian with his medications and states his was going to be in and can confirm his meds. Spoke to pt spouse Elissa at bedside and she was able to confirm the pt medications; she confirmed the pt takes Eliquis 5mg BID, Carvedilol 12.5mg tabs BID and Metformin 500mg tabs BID and states he use to fill them at [facility] but is now getting them through a [facility] [employer] Mail Order Service.
--- NOTE | 2025-07-21 15:47 | PM.IMHP ---
History of Present Illness Date of Service: 07/21/25 Attending physician on admission: Hiren Ag Chief Complaint: Slurred speech 75-year-old male, with a background history of CKD3a, HTN, paroxysmal atrial fibrillation on apixaban, CVA R MCA, T2 DM, presents to hospital with slurred speech. The patient's reports that at 09:00 today, the patient was speaking normally, and suddenly began slurring his speech. His speech was incomprehensible and much slower than it normally is. The patient seemed to understand his communicating with him. This lasted for a total of 30 minutes, until it self resolved. The patient and the patient's tonight hemiplegia, hemiparesis, vision changes, dizziness, loss of balance. The patient denies chest pain, retrosternal pressure, palpitations, dizziness, diaphoresis. No nausea, vomiting, diarrhea, abdominal pain. No new rashes, bruising. No new change in medications. The patient reports compliance with taking apixaban twice a day every day. In the emergency room, ECG was unremarkable for acute changes, CT head negative, lab work unremarkable. Review of Systems Review of Systems: Yes all other systems are reviewed and are negative [facility] Medical History Other and unspecified hyperlipidemia CKD (chronic kidney disease) Essential hypertension Abnormal EKG Cerebrovascular accident (CVA) due to embolic occlusion of right middle cerebral artery PAF (paroxysmal atrial fibrillation) Family History Father HTN (hypertension) Mother HTN (hypertension) Surgical History No pertinent past surgical history Social History Housing: House Patient Tobacco Use Status: Never used Tobacco e-Cigarette/Vaping Use: Never Used Advance Directives: No Advance Directives Information Provided: Yes Do you have a plan to hurt others: No Plan service: No Current occupational status: retired Cognitive needs: No Hearing needs: No Vision needs: No Meds Allergies Allergy/AdvReac Type Severity Reaction Status Date / Time No Known Allergies Allergy Verified 07/21/25 10:41 Home Medications ?Medication ?Instructions ?Recorded ?Confirmed ?Last Taken ?Type aspirin 81 mg tablet,delayed 81 mg PO DAILY 11/25/20 07/21/25 07/21/25 History release pravastatin 40 mg tablet 40 mg PO BEDTIME 11/25/20 07/21/25 07/20/25 History metformin 500 mg tablet 500 mg PO BID 11/24/24 07/21/25 07/21/25 History allopurinol 100 mg tablet 200 mg PO DAILY 07/21/25 07/21/25 07/21/25 History losartan 25 mg tablet 25 mg PO DAILY 07/21/25 07/21/25 07/21/25 History Physical Exam Vital Signs and Narrative: Vital Signs: Last Vital Signs Temp 98.3 F 07/21/25 14:52 Pulse 90 07/21/25 14:52 Resp 16 07/21/25 14:52 BP 163/82 H 07/21/25 14:52 Pulse Ox 98 07/21/25 14:52 O2 Del Method Room Air 07/21/25 14:52 BMI result Body Mass Index 28.1 General: A&O x3, oriented to time place person and situation, comfortable, no pain Cardiac: S1, S2 auscultated with no S3/4, no MRG. Well perfused. Irregularly irregular rate Respiratory: Normal breath sounds auscultated throughout all lung zones, without wheezing, rales. Normal rate. GI/ : No abdominal pain on palpation, no masses or distentions. MSK: Normal ambulation without pain at bony prominences or musculature Neurological: Left-sided mouth drooping, otherwise normal neurological examination on overview, without obvious CN II-XII abnormalities. Results Labs 07/21/25 10:36 07/21/25 10:36 Labs: Laboratory Results - last 24 hr 07/21/25 07/21/25 07/21/25 10:32 10:34 10:36 MCV 80.8 MCH 27.8 MCHC 34.4 RDW 13.3 Plt Count 165 MPV 10.6 Immature Gran % (Auto) 0.2 Neut % (Auto) 54.4 Lymph % (Auto) 35.3 [place] % (Auto) 9.0 Eos % (Auto) 0.9 Baso % (Auto) 0.2 Lymph # (Auto) 1.6 [place] # (Auto) 0.4 Eos # (Auto) 0.0 Baso # (Auto) 0.0 Abs Immat Gran (auto) 0.01 Absolute Neuts (auto) 2.4 Absolute Nucleated RBC 0.000 Nucleated RBC % (auto) 0.0 Whole Blood PT 11.9 Whole Blood INR 1.0 Hold Blue Top SEE NOTE Anion Gap 14 Estim Creat Clear Calc 39.2 Estimated GFR 42 POC Glucose 276 H Random Glucose 294 H Estimat Average Glucose 212 Hemoglobin A1c % 9.0 H Calcium 9.4 Magnesium 2.1 Total Bilirubin 0.3 Direct Bilirubin 0.1 AST 24 ALT 21 Alkaline Phosphatase 105 B-Natriuretic Peptide 371 H Total Protein 6.8 Albumin 3.9 Triglycerides 122 Cholesterol 131 LDL Cholesterol, Calc 66 HDL Cholesterol 41 Urine Color Urine Appearance Urine pH Ur Specific [place] Urine Protein Urine Glucose (UA) Urine Ketones Urine Blood Urine Nitrite Ur Leukocyte Esterase Urine RBC Urine WBC Ur Squamous Epith Cells Urine Bacteria Hyaline Casts 07/21/25 11:34 MCV MCH MCHC RDW Plt Count MPV Immature Gran % (Auto) Neut % (Auto) Lymph % (Auto) [place] % (Auto) Eos % (Auto) Baso % (Auto) Lymph # (Auto) [place] # (Auto) Eos # (Auto) Baso # (Auto) Abs Immat Gran (auto) Absolute Neuts (auto) Absolute Nucleated RBC Nucleated RBC % (auto) Whole Blood PT Whole Blood INR Hold Blue Top Anion Gap Estim Creat Clear Calc Estimated GFR POC Glucose Random Glucose Estimat Average Glucose Hemoglobin A1c % Calcium Magnesium Total Bilirubin Direct Bilirubin AST ALT Alkaline Phosphatase B-Natriuretic Peptide Total Protein Albumin Triglycerides Cholesterol LDL Cholesterol, Calc HDL Cholesterol Urine Color Yellow Urine Appearance Clear Urine pH 7.0 Ur Specific [place] 1.010 Urine Protein 30 (1+) H Urine Glucose (UA) 500 H Urine Ketones Negative Urine Blood Negative Urine Nitrite Negative Ur Leukocyte Esterase Negative Urine RBC 0-2 Urine WBC 0-5 Ur Squamous Epith Cells 0-2 Urine Bacteria None Seen Hyaline Casts 0-2 Imaging Radiologist's Impressions: Impressions Head CT 07/21/25 10:35 IMPRESSION: 1. No acute intracranial abnormality. No CT evidence of acute territorial infarction. 2. Old right MCA territory infarct with associated encephalomalacia. 3. Old bilateral cerebellar lacunar type infarcts. This critical result was discussed with Dr. Katelin Blankenship of the [facility] at 10:49 AM, 07/21/2025. It was ascertained that the content and urgency of the report was understood at the time of direct communication. Electronically signed by: Elvis Mayo MD 07/21/2025 10:54 AM EDT Assessment and Plan (1) PAF (paroxysmal atrial fibrillation): Status: Acute (2) Essential hypertension: Status: Acute (3) CKD (chronic kidney disease): Qualifiers: Chronic kidney disease stage: stage 3 (moderate) Chronic kidney disease stage 3 subtype: stage 3a (GFR 45-59) Qualified Code(s): N18.31 - Chronic kidney disease, stage 3a Status: Acute (4) Cerebrovascular accident (CVA) due to embolic occlusion of right middle cerebral artery: Status: Acute (5) Transient cerebral ischemia: Qualifiers: Transient cerebral ischemia type: unspecified Qualified Code(s): G45.9 - Transient cerebral ischemic attack, unspecified Status: Acute Plan 75-year-old male, with a background medical history of CVA R MCA chronic left-sided facial droop, paroxysmal atrial fibrillation on apixaban, HTN, CKD 3A, T2 DM, presenting to hospital with slurred speech, admitted with TIA. TIA Prior CVA R MCA, L facial droop HTN HLD ABCD2 score: 4 points - moderate risk; - 2 day stroke risk 4.1% - 7 day stroke risk 5.9% - 90 day stroke risk 9.8% PLAN - apixaban - aspirin - high-dose statin - controlled T2 DM - losartan 25 mg OD p.o. - ECHO - bilateral carotid ultrasonography - consider MRI brain Paroxysmal Atrial fibrillation PLAN - carvedilol 12.5 mg b.i.d. p.o. - diltiazem 120 mg ER - apixaban 5 mg b.i.d. p.o. T2 DM Well controlled on metformin QUALITY [employer] - VTE: Apixaban - CODE STATUS: Full code - DIET: Cardiac diet Quality Stroke Does the patient have a stroke diagnosis?: Yes Reason for No Anti-thrombotic by Day Two: N/A - Med Ordered VTE Prior VTE?: No VTE Risk Level:: Medical - moderate - high VTE Device Contraindication: Treatment Not Indicated VTE Drug Contraindication: N/A - Med Ordered
--- NOTE | 2025-07-21 17:05 | PC.NURSE ---
patient called this RN stating that patient was on the phone with his daughter and was not making any sense. this RN went in to evaluate patient and patient was awake and alert, watching videos on his phone. BGL 123. patient is alert and oriented x3, answers all of this RN questions appropriately.
[2025-07-21 17:12] LABS: Glucose, Whole Blood 125 mg/dL (60-115)
--- NOTE | 2025-07-21 17:32 | PC.NURSE ---
upon entering patients room patient is on the phone with his and watching videos on his phone, patients asked if he was unresponsive, patient is awake and alert, is seems he is choosing to not speak on the phone with his . reassured patients that he is okay and the provider has been notified
--- NOTE | 2025-07-21 18:45 | PC.NURSE ---
patient sitting up and eating dinner, patient medicated pe rMAR. is at bedside
[2025-07-22] VITALS (8 sets, daily range): BP systolic 140–188; BP diastolic 68–97; PULSE 57–86; RESP 14–20; TEMP 36.4–37.4; O2SAT 96–99
--- NOTE | 2025-07-22 07:00 | CA_ITS ---
Transthoracic Echocardiogram Patient (Last, First, Middle): Solitario Stewart, Gender: Male Date of : 1950 Age: 75 Procedure Date: 07/22/2025 Procedure Type: Transthoracic Echocardiogram Location: [facility] [place] Height: 167.64 cm Weight: 78.02 kg BSA: 1.88 m2 Heart Rate: 62 bpm BP: 157 / 79 mmHg Delivery Table Feeder: Referring MD: Hiren Ag MD Symptoms: TIA Study Quality: Adequate ECG Rhythm: Sinus Conclusions: - Normal left ventricular size and systolic function. There is mildly increased left ventricular wall thickness. The visually estimated ejection fraction is between 60-65%. - Elevated filling pressures. - Normal right ventricular cavity size and systolic function. Findings Left Ventricle Normal left ventricular size and systolic function. There is mildly increased left ventricular wall thickness. The visually estimated ejection fraction is between 60-65%. There is no evidence of regional wall motion abnormalities. Abnormal diastolic function is noted. Spectral Doppler is indicative of a pseudonormal filling pattern. Elevated filling pressures. Right Ventricle Normal right ventricular cavity size and systolic function. Atria The left atrium is mildly dilated. The right atrium is mildly dilated. Aortic Valve There is a normal trileaflet aortic valve. There is mild calcification of the aortic valve. There is no aortic valve stenosis. There is no aortic valve regurgitation. Mitral Valve The mitral valve appears normal. There is trace mitral valve regurgitation. There is no mitral valve stenosis. Pulmonic Valve The pulmonic valve is normal. There is trace pulmonic valve regurgitation. Tricuspid Valve Normal tricuspid valve structure. There is trace tricuspid valve regurgitation. Normal right atrial pressure. There is no evidence of pulmonary hypertension. Great Vessels All visible segments of the aorta are normal in size. The visualized portions of the pulmonary artery and branches are normal. Venous The inferior vena cava is normal in size and collapses greater than 50% with inspiration. Pericardium/Pleural There is no evidence of pericardial effusion. Prior Study Comparison Changes noted compared to prior study dated: 12/12/2024. Elevated filling pressure. Measurements 2D Linear Measurements IVSd: 1.21 0.6-0.9/0.6-1.0 cm LVIDd: 4.05 3.9-5.3/4.2-5.9 cm LVIDd Index: 2.15 2.4-3.2/2.2-3.1 cm/m2 LVIDs: 2.27 2.0-3.6 cm LVPWd: 1.24 0.7-1.1 cm LA Diam: 3.80 2.7-3.8/3.0-4.0 cm LAIDs Index: 2.02 1.5-2.3 cm/m2 LV Mass: 216.52 67-162/88-224 g LV Mass Index: 115.17 43-95/49-115 g/m2 LVOT Diam: 2.00 3.0+(-)1.3 cm 2D Systolic Function EF 4C: 71.10 >55% EF 2C: 55.80 >55% EF BiP: 65.30 >55% Mitral Valve MV Pk E: 1.06 MV PK A: 0.48 MV Decel Time: 235.00 E/A: 2.20 E'Lateral: 8.16 E'Medial: 4.46 E/E' Med: 23.80 E/E' Lat: 13.00 PHT: 69.00 MVA PHT: 3.19 Decel Finney: 4.51 Aortic Valve AoV Pk Glen: 1.63 AoV Mn Glen: 1.06 AoV VTI: 0.36 AoV Pk Grad: 11.00 Aov Mn Grad: 5.00 ARUNA Cont.VTI: 2.02 LVOT LVOT Pk Glen: 1.13 LVOT Mn Glen: 0.69 LVOT VTI: 0.23 LVOT Pk Grad: 5.00 LVOT Mn Grad: 2.00 LVOT Diam: 2.00 LVOT Area: 3.14 Diastolic Function MV Pk E: 1.06 MV Pk A: 0.48 E/A: 2.20 E'Medial: 4.46 E/E' Med: 23.80 E' Laterial: 8.16 E/E' Lat: 13.00 Right Ventricle TAPSE (mm): 17.50 TVS' Glen: 8.16 Tricuspid Valve TR Pk Glen: 1.93 TR Pk Grad: 15.00 RA Press: 3.00 RVSP: 18.00 Great Vessels Aorta Sinus of Valsalva: 2.60 2.0-3.5 cm Ao Asc: 2.70 2.1-3.4 cm Pulmonary Valve PV Pk Glen: 2.06 Peak PV Grad: 17.00 Updated in Other Vendor System with Status of Final Geovani Spear MD electronically signed on 07/23/2025 7:40:26 PM with status of Final
[2025-07-22 07:44] LABS: Glucose, Whole Blood 149 mg/dL (60-115)
[2025-07-22 07:56] LABS: MANUAL DIFF FLAG NO
[2025-07-22 08:08] LABS: Hematocrit 38.6 % (42.0-52.0); Hemoglobin 13.4 g/dl (14.0-18.0); Imm Gran Abs Auto 0.02 X10*3/uL (0.00-0.03); Imm Gran Pct Auto 0.3 % (0.0-0.4); Lymphocytes Absolute Auto 2.1 X10*3/uL (1.2-4.9); Mean Corpuscular HGB Conc 34.7 g/dl (31.0-36.0); Mean Corpuscular Hemoglobin 28.0 pg (27.0-33.0); Mean Corpuscular Volume 80.6 fL (80.0-98.0); NRBC Abs Auto 0.000 X10*3/uL (0.0-0.012); NRBC Pct Auto 0.0 /100WBC (0.0-0.2); Platelet Count 177 X10*3/uL (160-400); Red Blood Count 4.79 X10*6/uL (4.60-5.80); White Blood Count 6.5 X10*3/uL (4.8-10.8)
[2025-07-22 08:21] LABS: Anion Gap 13 (12-20); Blood Urea Nitrogen 21 mg/dL (9-16); Calcium 9.8 mg/dL (8.4-10.2); Carbon Dioxide 27 mmol/L (22-29); Chloride 106 mmol/L (96-108); Creatinine Clr Calc Pharmacy 39.8; Estimated Glomerular Filt Rate 42; Potassium 4.7 mmol/L (3.3-5.1); Sodium 141 mmol/L (135-145)
--- NOTE | 2025-07-22 08:28 | MHC.CM.PN ---
Addendum entered by Rosy Shankar 07/22/25 13:10: IMM was addressed with Patient at bedside; the original was given to Patient and a copy has been placed on the chart. Original Note: CM met with Patient at bedside. Patient lives in a house with his /HCP/Elissa who will transport at dc if Patient is dc'd to home. Patient may benefit from [employer] to assist with disposition; CM has initiated and will follow for dc planning. PCP is Bee Tomlin.
[2025-07-22] MEDS: 0.9 % Sodium Chloride Flush 3 ML SYRINGE IVFLUSH ×3 (09:03→21:12)
[2025-07-22] MEDS: dilTIAZem HCL CD 120 MG CAP.ER.DEG PO (09:04)
[2025-07-22] MEDS: Aspirin Enteric Coated 81 MG TABLET.DR PO (09:04)
--- NOTE | 2025-07-22 14:24 | P.PNIM_ITS ---
Subjective Subjective Date of Service: 07/22/25 Interval History: Patient was noted to be somnolent during evaluation today. Attempting to communicate with the patient, however seems disinterested in conversation. Reports no pain, recurrence of symptoms. Denies hemiplegia, hemiparesis, palpitations, dizziness Review of Systems Review of Systems: Yes all other systems are reviewed and are negative Physical Exam 2 Exam: Exam: General: A&O x3, oriented to time place person and situation, comfortable, no pain Cardiac: S1, S2 auscultated with no S3/4, no MRG. Well perfused. Irregularly irregular rate Respiratory: Normal breath sounds auscultated throughout all lung zones, without wheezing, rales. Normal rate. GI/ : No abdominal pain on palpation, no masses or distentions. MSK: Normal ambulation without pain at bony prominences or musculature Neurological: Left-sided mouth drooping, otherwise normal neurological examination on overview, without obvious CN II-XII abnormalities. Vital Signs: Vital Signs: Last Vital Signs Temp 97.6 F 07/22/25 11:04 Pulse 60 07/22/25 11:04 Resp 18 07/22/25 11:04 BP 140/76 H 07/22/25 11:04 Pulse Ox 97 07/22/25 11:04 O2 Del Method Room Air 07/22/25 11:04 BMI result Body Mass Index 27.9 Objective Data Active Medications Acetaminophen (Acetaminophen 325 Mg Tablet) 650 mg PO Q6H PRN PRN Reason: Pain, Mild 1-3,fever,headache Allopurinol (Allopurinol 100 Mg Tablet) 200 mg PO DAILY [facility] [place] [place] Last Admin: 07/22/25 09:04 Dose: 200 mg Documented By: JUAN Apixaban (Apixaban 5 Mg Tablet) 5 mg PO BID [facility] [place] Last Admin: 07/22/25 09:04 Dose: 5 mg Documented By: JUAN Aspirin (Aspirin Enteric Coated 81 Mg Tablet.) 81 mg PO DAILY [facility] [place] Last Admin: 07/22/25 09:04 Dose: 81 mg Documented By: JUAN Atorvastatin Calcium (Atorvastatin Calcium 80 Mg Tablet) 80 mg PO BEDTIME [facility] Calcium Carbonate (Calcium Carbonate 750 Mg Tab.Chew) 750 mg PO Q4H PRN PRN Reason: Heartburn Carvedilol (Carvedilol 12.5 Mg Tablet) 12.5 mg PO BID [facility] [place]; Protocol Last Admin: 07/22/25 09:04 Dose: 12.5 mg Documented By: JUAN Diltiazem HCl (Diltiazem Hcl Cd 120 Mg Cap.Er.Deg) 120 mg PO DAILY [facility] [place]; Protocol Last Admin: 07/22/25 09:04 Dose: 120 mg Documented By: JUAN Losartan Potassium (Losartan Potassium 25 Mg Tablet) 25 mg PO DAILY [facility] [place] [place]; Protocol Last Admin: 07/22/25 09:04 Dose: 25 mg Documented By: JUAN Magnesium Hydroxide (Milk Of Magnesia 30 Ml Oral.Susp) 30 ml PO DAILY PRN PRN Reason: Constipation Melatonin (Melatonin 3 Mg Tablet) 6 mg PO BEDTIME PRN PRN Reason: Insomnia Metformin HCl (Metformin Hcl 500 Mg Tablet) 500 mg PO BIDWM [facility] [place] Last Admin: 07/22/25 09:04 Dose: 500 mg Documented By: JUAN Sodium Chloride (0.9 % Sodium Chloride Flush 3 Ml Syringe) 3 ml IVFLUSH QSHIFT [facility] [place] Last Admin: 07/22/25 09:03 Dose: 3 ml Documented By: JUAN Labs 07/22/25 07:26 07/22/25 07:26 Labs: Laboratory Results - last 24 hr 07/21/25 07/22/25 07/22/25 17:07 07:26 07:41 MCV 80.6 MCH 28.0 MCHC 34.7 RDW 13.3 Plt Count 177 MPV 11.2 Immature Gran % (Auto) 0.3 Neut % (Auto) 58.1 Lymph % (Auto) 31.9 [place] % (Auto) 8.7 Eos % (Auto) 0.8 Baso % (Auto) 0.2 Lymph # (Auto) 2.1 [place] # (Auto) 0.6 Eos # (Auto) 0.1 Baso # (Auto) 0.0 Abs Immat Gran (auto) 0.02 Absolute Neuts (auto) 3.8 Absolute Nucleated RBC 0.000 Nucleated RBC % (auto) 0.0 Anion Gap 13 Estim Creat Clear Calc 39.8 Estimated GFR 42 POC Glucose 125 H 149 H Random Glucose 159 H Calcium 9.8 Assessment and Plan (1) PAF (paroxysmal atrial fibrillation): Status: Acute (2) Essential hypertension: Status: Acute (3) CKD (chronic kidney disease): Status: Acute (4) Cerebrovascular accident (CVA) due to embolic occlusion of right middle cerebral artery: Status: Acute (5) Transient cerebral ischemia: Status: Acute Plan 75-year-old male, with a background medical history of 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 TIA Prior CVA R MCA, L facial droop HTN HLD ABCD2 score: 4 points - moderate risk; - 2 day stroke risk 4.1% - 7 day stroke risk 5.9% - 90 day stroke risk 9.8% PLAN - apixaban - aspirin - high-dose statin - controlled T2 DM - losartan 25 mg OD p.o. - ECHO - bilateral carotid ultrasonography - consider MRI brain Paroxysmal Atrial fibrillation PLAN - carvedilol 12.5 mg b.i.d. p.o. - diltiazem 120 mg ER - apixaban 5 mg b.i.d. p.o. T2 DM Well controlled on metformin [employer] - VTE: Apixaban - CODE STATUS: Full code - DIET: Cardiac diet Total time managing care of this patient today: 35 minutes. Quality Stroke Does the patient have a stroke diagnosis?: Yes Reason for No Anti-thrombotic by Day Two: N/A - Med Ordered VTE Prior VTE?: No VTE Risk Level:: Medical - moderate - high VTE Device Contraindication: Treatment Not Indicated VTE Drug Contraindication: N/A - Med Ordered
--- NOTE | 2025-07-22 16:54 | PC.NURSE ---
Pt sent to MRI
--- NOTE | 2025-07-22 18:24 | PM.EVENT ---
Event Note Date of Service: 07/22/25 Event Note: MRI brain performed; revealing evidence of ischemia of the right frontal lobe and insular cortex infarct with petechial hemorrhage and associated mass effect on right frontal horn with sulcal crowding. Chronic infarcts in right parietal and temporal lobes, and bilateral cerebellum. Discussed with Neurology: - The patient's symptom onset was 9am 07/21/2025. - Given delayed presentation, the patient does not qualify for further evaluation with CT-A for possible thrombectomy. - Patient's creatinine 1.6 with CKD stage 3. - No acute intervention warranted at this time. Etiology likely secondary to cardioembolic CVA in setting of atrial fibrillation and noncompliance with apixaban. Time Spent With Patient Time: Total time managing care of this patient today 45 minutes.
--- NOTE | 2025-07-22 21:17 | PC.NURSE ---
Patient arousable to voice though drowsy, falls asleep during assessment questions, pt assessed with slow speech though clear, pt able to answer assessment questions for music writer with single repetition. Elevated BP initially this evening, though pt was recently up to bathroom with staff assistance, during which time this patient attempted to wander into warren, appeared confused, unsteady, and was assisted back to bed after voiding in the bathroom. MD was notified of mentation assessments and MRI results from earlier this evening/prior to music writer and MD assuming care. SBP improved to 140's on reassessment with covering Dr. Devang Leach at bedside ~21:00. MD advised allow for permissive hypertension and to hold coreg at this time. MD also advised to hold scheduled eliquis given MRI results. MD advised also hold off on statin at this time due to pt drowsiness, and MD will reach out to neurology covering. Bed alarm on and safety measures in place including in-room camera continue. Please see neuro assessments for full details. Plan of care ongoing.
[2025-07-23 04:00] VITALS: BP 183/97; PULSE 65; RESP 20; TEMP 36.4; O2SAT 98
[2025-07-23 07:30] LABS: MANUAL DIFF FLAG NO
[2025-07-23 07:31] VITALS: BP 168/78; PULSE 68; RESP 18; TEMP 37; O2SAT 97
[2025-07-23 07:35] LABS: Hematocrit 34.6 % (42.0-52.0); Hemoglobin 12.5 g/dl (14.0-18.0); Imm Gran Abs Auto 0.02 X10*3/uL (0.00-0.03); Imm Gran Pct Auto 0.3 % (0.0-0.4); Lymphocytes Absolute Auto 1.7 X10*3/uL (1.2-4.9); Mean Corpuscular HGB Conc 36.1 g/dl (31.0-36.0); Mean Corpuscular Hemoglobin 28.4 pg (27.0-33.0); Mean Corpuscular Volume 78.6 fL (80.0-98.0); NRBC Abs Auto 0.000 X10*3/uL (0.0-0.012); NRBC Pct Auto 0.0 /100WBC (0.0-0.2); Platelet Count 192 X10*3/uL (160-400); Red Blood Count 4.40 X10*6/uL (4.60-5.80); White Blood Count 6.4 X10*3/uL (4.8-10.8)
[2025-07-23 07:43] LABS: Anion Gap 11 (12-20); Blood Urea Nitrogen 22 mg/dL (9-16); Calcium 9.7 mg/dL (8.4-10.2); Carbon Dioxide 28 mmol/L (22-29); Chloride 104 mmol/L (96-108); Creatinine Clr Calc Pharmacy 35.2; Estimated Glomerular Filt Rate 37; Potassium 4.2 mmol/L (3.3-5.1); Sodium 139 mmol/L (135-145)
--- NOTE | 2025-07-23 08:15 | PM.NEUROCN ---
History of Present Illness Data of Consult Service Date: 07/23/25 Primary Care Provider: Celestine Gamboa MD [facility] Reason for consult: Stroke 75 years old man with underlying history of hypertension, chronic atrial fibrillation, chronic renal disease and a right middle cerebral artery area stroke, ischemic infarction, resulting in mild left-sided deficit who came to hospital with complain of difficulty speaking. Apparently his speech became incomprehensible for about 30 minutes. In emergency room, speech was back to normal and he was admitted for possibility of transient ischemic attack and was not treated with any acute intervention in emergency room. Later an MRI of brain revealed a right hemispheric infarct prompting this consultation. There was no evidence of any convulsion. Review of Systems Review of Systems: No headaches or chest pain or recent cold or flu-like illness or trauma PMFSH Past Medical History Medical History Other and unspecified hyperlipidemia CKD (chronic kidney disease) Essential hypertension Abnormal EKG Cerebrovascular accident (CVA) due to embolic occlusion of right middle cerebral artery PAF (paroxysmal atrial fibrillation) Family History Family History Father HTN (hypertension) Mother HTN (hypertension) Surgical History Surgical History No pertinent past surgical history Social History Social History Household Members: Family Housing: House Do you presently have visiting nurse or other home services: No Patient Tobacco Use Status: Never used Tobacco e-Cigarette/Vaping Use: Never Used service: No Current occupational status: retired Cognitive needs: No Hearing needs: No Vision needs: No Meds Allergies Allergy/AdvReac Type Severity Reaction Status Date / Time No Known Allergies Allergy Verified 07/21/25 10:41 Active Medications: Current Medications Acetaminophen (Acetaminophen 325 Mg Tablet) 650 mg PO Q6H PRN PRN Reason: Pain, Mild 1-3,fever,headache Allopurinol (Allopurinol 100 Mg Tablet) 200 mg PO DAILY [facility] Last Admin: 07/22/25 09:04 Dose: 200 mg Apixaban (Apixaban 5 Mg Tablet) 5 mg PO BID [facility] Last Admin: 07/22/25 21:11 Dose: Not Given Aspirin (Aspirin Enteric Coated 81 Mg Tablet.) 81 mg PO DAILY [facility] Last Admin: 07/22/25 09:04 Dose: 81 mg Atorvastatin Calcium (Atorvastatin Calcium 80 Mg Tablet) 80 mg PO BEDTIME [facility] Last Admin: 07/22/25 21:26 Dose: Not Given Calcium Carbonate (Calcium Carbonate 750 Mg Tab.Chew) 750 mg PO Q4H PRN PRN Reason: Heartburn Carvedilol (Carvedilol 12.5 Mg Tablet) 12.5 mg PO BID [facility]; Protocol Last Admin: 07/22/25 21:11 Dose: Not Given Diltiazem HCl (Diltiazem Hcl Cd 120 Mg Cap.Er.Deg) 120 mg PO DAILY [facility]; Protocol Last Admin: 07/22/25 09:04 Dose: 120 mg Losartan Potassium (Losartan Potassium 25 Mg Tablet) 25 mg PO DAILY [facility]; Protocol Last Admin: 07/22/25 09:04 Dose: 25 mg Magnesium Hydroxide (Milk Of Magnesia 30 Ml Oral.Susp) 30 ml PO DAILY PRN PRN Reason: Constipation Melatonin (Melatonin 3 Mg Tablet) 6 mg PO BEDTIME PRN PRN Reason: Insomnia Metformin HCl (Metformin Hcl 500 Mg Tablet) 500 mg PO BIDWM [facility] Last Admin: 07/22/25 18:23 Dose: 500 mg Sodium Chloride (0.9 % Sodium Chloride Flush 3 Ml Syringe) 3 ml IVFLUSH [facility] Last Admin: 07/22/25 21:12 Dose: 3 ml Home Medications ?Medication ?Instructions ?Recorded ?Confirmed ?Last Taken ?Type aspirin 81 mg tablet,delayed 81 mg PO DAILY 11/25/20 07/21/25 07/21/25 History release pravastatin 40 mg tablet 40 mg PO BEDTIME 11/25/20 07/21/25 07/20/25 History metformin 500 mg tablet 500 mg PO BID 11/24/24 07/21/25 07/21/25 History allopurinol 100 mg tablet 200 mg PO DAILY 07/21/25 07/21/25 07/21/25 History losartan 25 mg tablet 25 mg PO DAILY 07/21/25 07/21/25 07/21/25 History Physical Exam Vital Signs: Vital Signs: Last Vital Signs Temp 98.6 F 07/23/25 07:31 Pulse 68 07/23/25 07:31 Resp 18 07/23/25 07:31 BP 168/78 H 07/23/25 07:31 Pulse Ox 97 07/23/25 07:31 O2 Del Method Room Air 07/23/25 07:31 BMI result Body Mass Index 27.9 Neuro: Other: He is alert and awake with normal spontaneity of speech fluency comprehension and flat affect. He said that he was in his home. He was following commands. There was mild left-sided central facial weakness. Pupils were round reactive and extraocular muscles were intact. Visual marx were intact. There was no pronator drift. There was no obvious focal arm or leg weakness. Deep tendon reflexes were absent with flexor plantars. Speech was normal. Results Labs 07/23/25 07:25 07/23/25 07:25 Labs: Short CBC 07/23/25 Range/Units 07:25 WBC 6.4 (4.8-10.8) X10*3/uL Hgb 12.5 L (14.0-18.0) g/dl Hct 34.6 L (42.0-52.0) % Plt Count 192 (160-400) X10*3/uL BMP 07/22/25 07/23/25 07:26 07:25 Sodium 141 139 Potassium 4.7 4.2 Chloride 106 104 Carbon Dioxide 27 28 BUN 21 H 22 H Creatinine 1.60 H 1.81 H Calcium 9.8 9.7 His CAT scan of brain revealed a right middle cerebral area territory hypodensity probably from chronic ischemic infarction. MRI of brain on the other hand revealed an acute cortical moderate-size right frontoparietal infarct. Carotid ultrasound did not reveal any significant extracranial stenosis. Assessment and Plan (1) Embolic cerebral infarction: Qualifiers: Precerebral and cerebral artery: middle cerebral artery Laterality of affected vessel: right Qualified Code(s): I63.411 - Cerebral infarction due to embolism of right middle cerebral artery Status: Acute 75 years old man with underlying history of hypertension, chronic paroxysmal atrial fibrillation, chronic renal disease with abnormal creatinine, came to hospital with an episode of difficulty speaking. His symptoms have not recurred but his brain imaging revealed a moderate-size acute right frontoparietal cortical infarct, most likely embolic. Cardiac source of embolism was most likely possibility. Missing doses of anticoagulation sometime can trigger embolism. As his symptoms started more than a day before the stroke was discovered, and because of significant renal disease, CTA was not obtain as that would not lead to any change in treatment. My recommendation is to continue anticoagulation and advised him to take it regularly or his family to give him regularly. This type of stroke and also result in cognitive difficulties. Procedures Date of Service Date of Service: 07/23/25
[2025-07-23] MEDS: Aspirin Enteric Coated 81 MG TABLET.DR PO (08:22)
[2025-07-23] MEDS: 0.9 % Sodium Chloride Flush 3 ML SYRINGE IVFLUSH ×3 (08:23→20:09)
--- NOTE | 2025-07-23 10:44 | MHC.CM.PN ---
PT will need to re-eval for dc plan. CM will follow.
[2025-07-23 11:44] VITALS: BP 126/71; PULSE 63; RESP 18; TEMP 36.1; O2SAT 94
[2025-07-23 16:00] VITALS: BP 128/68; PULSE 58; RESP 18; TEMP 36.3; O2SAT 98
--- NOTE | 2025-07-23 16:01 | P.PNIM_ITS ---
Subjective Subjective Date of Service: 07/23/25 Interval History: Patient feels well today. Able to communicate. No neurological deficits identified on examination, other than chronic left- sided facial droop. May be suffering with word-finding difficulty, however the patient also reports that he does not feel like talking or communicating. He is experiencing no new symptoms or complaints. Review of Systems Review of Systems: Yes all other systems are reviewed and are negative Physical Exam 2 Exam: Exam: General: A&O x3, oriented to time place person and situation, comfortable, no pain Cardiac: S1, S2 auscultated with no S3/4, no MRG. Well perfused. Respiratory: Normal breath sounds auscultated throughout all lung zones, without wheezing, rales. Normal rate. GI/ : No abdominal pain on palpation, no masses or distentions. MSK: Normal ambulation without pain at bony prominences or musculature Neurological: Normal neurological examination on overview, without obvious CN II-XII abnormalities. Vital Signs: Vital Signs: Last Vital Signs Temp 97.0 F 07/23/25 11:44 Pulse 63 07/23/25 11:44 Resp 18 07/23/25 11:44 BP 126/71 07/23/25 11:44 Pulse Ox 94 07/23/25 11:44 O2 Del Method Room Air 07/23/25 11:44 BMI result Body Mass Index 27.9 Objective Data Active Medications Acetaminophen (Acetaminophen 325 Mg Tablet) 650 mg PO Q6H PRN PRN Reason: Pain, Mild 1-3,fever,headache Allopurinol (Allopurinol 100 Mg Tablet) 200 mg PO DAILY [facility] Last Admin: 07/23/25 08:22 Dose: 200 mg Documented By: OREN Apixaban (Apixaban 5 Mg Tablet) 5 mg PO BID [facility] Last Admin: 07/23/25 08:22 Dose: 5 mg Documented By: OREN Aspirin (Aspirin Enteric Coated 81 Mg Tablet.) 81 mg PO DAILY [facility] Last Admin: 07/23/25 08:22 Dose: 81 mg Documented By: OREN Atorvastatin Calcium (Atorvastatin Calcium 80 Mg Tablet) 80 mg PO BEDTIME [facility] Last Admin: 07/22/25 21:26 Dose: Not Given Documented By: NATA Non-Admin Reason: Physician Held Med Calcium Carbonate (Calcium Carbonate 750 Mg Tab.Chew) 750 mg PO Q4H PRN PRN Reason: Heartburn Carvedilol (Carvedilol 12.5 Mg Tablet) 12.5 mg PO BID [facility]; Protocol Last Admin: 07/23/25 08:22 Dose: 12.5 mg Documented By: OREN Diltiazem HCl (Diltiazem Hcl Cd 120 Mg Cap.Er.Deg) 120 mg PO DAILY [facility]; Protocol Last Admin: 07/23/25 13:27 Dose: Not Given Documented By: OREN Non-Admin Reason: Physician Held Med Comments: Held for permissive hypertension by Losartan Potassium (Losartan Potassium 25 Mg Tablet) 25 mg PO DAILY [facility]; Protocol Last Admin: 07/23/25 08:22 Dose: 25 mg Documented By: OREN Magnesium Hydroxide (Milk Of Magnesia 30 Ml Oral.Susp) 30 ml PO DAILY PRN PRN Reason: Constipation Melatonin (Melatonin 3 Mg Tablet) 6 mg PO BEDTIME PRN PRN Reason: Insomnia Metformin HCl (Metformin Hcl 500 Mg Tablet) 500 mg PO BIDWM [facility] Last Admin: 07/23/25 08:23 Dose: 500 mg Documented By: OREN Sodium Chloride (0.9 % Sodium Chloride Flush 3 Ml Syringe) 3 ml IVFLUSH QSHIFT [facility] Last Admin: 07/23/25 08:23 Dose: 3 ml Documented By: OREN Labs 07/23/25 07:25 07/23/25 07:25 Labs: Laboratory Results - last 24 hr 07/23/25 07:25 MCV 78.6 L MCH 28.4 MCHC 36.1 H RDW 13.2 Plt Count 192 MPV 10.2 Immature Gran % (Auto) 0.3 Neut % (Auto) 65.2 Lymph % (Auto) 26.1 [place]ison % (Auto) 7.6 Eos % (Auto) 0.5 Baso % (Auto) 0.3 Lymph # (Auto) 1.7 [place]ison # (Auto) 0.5 Eos # (Auto) 0.0 Baso # (Auto) 0.0 Abs Immat Gran (auto) 0.02 Absolute Neuts (auto) 4.2 Absolute Nucleated RBC 0.000 Nucleated RBC % (auto) 0.0 Anion Gap 11 L Estim Creat Clear Calc 35.2 Estimated GFR 37 Random Glucose 172 H Calcium 9.7 Assessment and Plan (1) PAF (paroxysmal atrial fibrillation): Status: Acute (2) Essential hypertension: Status: Acute (3) CKD (chronic kidney disease): Status: Acute (4) Cerebrovascular accident (CVA) due to embolic occlusion of right middle cerebral artery: Status: Acute (5) Embolic cerebral infarction: Status: Acute Plan 75-year-old male, with a background medical history of 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 Acute CVA; right middle cerebral artery - cardioembolic Prior CVA R MCA - chronic L facial droop HTN HLD Presents with expressive aphasia and word-finding difficulty, which resolved prior to presentation 09:30 07/21. CT brain on presentation negative ECHO and carotid ultrasound ordered. MRI conducted 07/22, revealing acute CVA with punctate hemorrhages. No new focal neurological deficit was identified. Neurology consult and recommendations provided. Given patient's CKD stage IIIB & > 24 hour since presentation, CTA was deferred. As per Neurology recommendation (greatly appreciated), recommendation is to continue anticoagulation, as the source is suspected to be cardioembolic in etiology (likely from missed doses of apixaban). Patient has endorsed relative noncompliance with medication. PLAN - Neurochecks q4hrly - Continue apixaban - Continue aspirin - high-dose statin - control T2 DM - losartan 25 mg OD p.o. Paroxysmal Atrial fibrillation PLAN - carvedilol 12.5 mg b.i.d. p.o. - diltiazem 120 mg ER - apixaban 5 mg b.i.d. p.o. T2 DM Well controlled on metformin CKD stage IIIA/3B Variable EGFR, that is excluded the patient from obtaining a CTA for further evaluation, especially given resolution of previous symptoms, lack of symptom recrudescence & > 24 hours since presentation. Renal function stable QUALITY METRICS - VTE: Continue Apixaban - CODE STATUS: Full code - DIET: Cardiac diet Total time managing care of this patient today: 45 minutes. Quality Stroke Does the patient have a stroke diagnosis?: Yes Reason for No Anti-thrombotic by Day Two: N/A - Med Ordered VTE Prior VTE?: No VTE Risk Level:: Medical - moderate - high VTE Device Contraindication: Treatment Not Indicated VTE Drug Contraindication: N/A - Med Ordered
[2025-07-23 19:54] VITALS: BP 142/77; PULSE 62; RESP 18; TEMP 36.3; O2SAT 97
[2025-07-24] VITALS (7 sets, daily range): BP systolic 112–160; BP diastolic 66–99; PULSE 86–124; RESP 16–18; TEMP 36.2–37; O2SAT 93–100
[2025-07-24 07:39] LABS: MANUAL DIFF FLAG NO
[2025-07-24 07:43] LABS: Hematocrit 38.0 % (42.0-52.0); Hemoglobin 13.5 g/dl (14.0-18.0); Imm Gran Abs Auto 0.02 X10*3/uL (0.00-0.03); Imm Gran Pct Auto 0.4 % (0.0-0.4); Lymphocytes Absolute Auto 2.0 X10*3/uL (1.2-4.9); Mean Corpuscular HGB Conc 35.5 g/dl (31.0-36.0); Mean Corpuscular Hemoglobin 28.1 pg (27.0-33.0); Mean Corpuscular Volume 79.0 fL (80.0-98.0); NRBC Abs Auto 0.000 X10*3/uL (0.0-0.012); NRBC Pct Auto 0.0 /100WBC (0.0-0.2); Platelet Count 188 X10*3/uL (160-400); Red Blood Count 4.81 X10*6/uL (4.60-5.80); White Blood Count 5.5 X10*3/uL (4.8-10.8)
[2025-07-24 08:01] LABS: Anion Gap 14 (12-20); Blood Urea Nitrogen 22 mg/dL (9-16); Calcium 9.8 mg/dL (8.4-10.2); Carbon Dioxide 27 mmol/L (22-29); Chloride 101 mmol/L (96-108); Creatinine Clr Calc Pharmacy 39.3; Estimated Glomerular Filt Rate 42; Potassium 4.1 mmol/L (3.3-5.1); Sodium 138 mmol/L (135-145)
[2025-07-24] MEDS: dilTIAZem HCL CD 120 MG CAP.ER.DEG PO (08:40)
[2025-07-24] MEDS: 0.9 % Sodium Chloride Flush 3 ML SYRINGE IVFLUSH ×3 (08:41→20:18)
[2025-07-24] MEDS: Aspirin Enteric Coated 81 MG TABLET.DR PO (08:41)
--- NOTE | 2025-07-24 12:38 | MHC.CM.PN ---
PT continues to recommend home with services; [facility] accepts Patient's insurance and has accepted Patient.
--- NOTE | 2025-07-24 12:53 | P.PNIM_ITS ---
Subjective Subjective Date of Service: 07/24/25 Interval History: The patient reports increased urinary frequency but denies any associated burning sensation, abdominal pressure, flank or back pain, or hematuria. Mr. Stewart has been restarted on his regular medications, including a blood thinner that needs to be taken twice daily due to his recent stroke, which was possibly related to his atrial fibrillation. The patient does not report any significant changes or new issues resulting from the stroke. Mr. Stewart' heart rate has normalized from the elevated rates (130s-150s) observed the previous night. He does not report any other new complaints or issues at this time. \ Multiple attempts to contact the patient's , unsuccessfully over the past 2 days. We will attempt again Review of Systems Genitourinary: Positive for increased urinary frequency. Negative for dysuria, abdominal pressure, flank pain, and hematuria. Review of Systems: Yes all other systems are reviewed and are negative Physical Exam 2 Exam: Exam: General: A&O x3, oriented to time place person and situation, comfortable, no pain Cardiac: S1, S2 auscultated with no S3/4, no MRG. Well perfused. Respiratory: Normal breath sounds auscultated throughout all lung zones, without wheezing, rales. Normal rate. GI/ : No abdominal pain on palpation, no masses or distentions. MSK: Normal ambulation without pain at bony prominences or musculature Neurological: - Upper extremities: Patient able to ext end arms straight, turn hands over, and close eyes. Manager Tax strength assessed bilaterally. Arms raised in boxing position. Push and pull strength tested. - Lower extremities: Dorsiflexion and pl antarflexion assessed bilaterally. [id number] test performed bilaterally. Leg raise tested bilaterally. - Coordination: [id number] test perf ormed bilaterally. Rapid alternating movements tested. Muscle tone assessed in upper extremities. - Strength is completely preserved in up per and lower extremities. Coordination seems to be okay but a bit slow. Vital Signs: Vital Signs: Last Vital Signs Temp 97.7 F 07/24/25 11:57 Pulse 97 07/24/25 11:57 Resp 18 07/24/25 11:57 BP 112/73 07/24/25 11:57 Pulse Ox 97 07/24/25 11:57 O2 Del Method Room Air 07/24/25 11:57 BMI result Body Mass Index 27.9 Objective Data Active Medications Acetaminophen (Acetaminophen 325 Mg Tablet) 650 mg PO Q6H PRN PRN Reason: Pain, Mild 1-3,fever,headache Allopurinol (Allopurinol 100 Mg Tablet) 200 mg PO DAILY [facility] Last Admin: 07/24/25 08:41 Dose: 200 mg Documented By: IRISH Apixaban (Apixaban 5 Mg Tablet) 5 mg PO BID [facility] Last Admin: 07/24/25 08:41 Dose: 5 mg Documented By: IRISH Aspirin (Aspirin Enteric Coated 81 Mg Tablet.Dr) 81 mg PO DAILY [facility] Last Admin: 07/24/25 08:41 Dose: 81 mg Documented By: IRISH Atorvastatin Calcium (Atorvastatin Calcium 80 Mg Tablet) 80 mg PO BEDTIME [facility] Last Admin: 07/23/25 20:09 Dose: 80 mg Documented By: CHUCK Calcium Carbonate (Calcium Carbonate 750 Mg Tab.Chew) 750 mg PO Q4H PRN PRN Reason: Heartburn Carvedilol (Carvedilol 12.5 Mg Tablet) 12.5 mg PO BID [facility]; Protocol Last Admin: 07/24/25 08:41 Dose: 12.5 mg Documented By: IRISH Diltiazem HCl (Diltiazem Hcl Cd 120 Mg Cap.Er.Deg) 120 mg PO DAILY [facility]; Protocol Last Admin: 07/24/25 08:40 Dose: 120 mg Documented By: IRISH Losartan Potassium (Losartan Potassium 25 Mg Tablet) 25 mg PO DAILY [facility]; Protocol Last Admin: 07/24/25 08:41 Dose: 25 mg Documented By: IRISH Magnesium Hydroxide (Milk Of Magnesia 30 Ml Oral.Susp) 30 ml PO DAILY PRN PRN Reason: Constipation Melatonin (Melatonin 3 Mg Tablet) 6 mg PO BEDTIME PRN PRN Reason: Insomnia Metformin HCl (Metformin Hcl 500 Mg Tablet) 500 mg PO BIDWM [facility] Last Admin: 07/24/25 08:41 Dose: 500 mg Documented By: IRISH Sodium Chloride (0.9 % Sodium Chloride Flush 3 Ml Syringe) 3 ml IVFLUSH QSHIFT [facility] Last Admin: 07/24/25 08:41 Dose: 3 ml Documented By: IRISH Labs 07/24/25 06:58 07/24/25 06:58 Labs: Laboratory Results - last 24 hr 07/24/25 06:58 MCV 79.0 L MCH 28.1 MCHC 35.5 RDW 13.1 Plt Count 188 MPV 10.4 Immature Gran % (Auto) 0.4 Neut % (Auto) 53.6 Lymph % (Auto) 36.2 [place] % (Auto) 9.1 Eos % (Auto) 0.5 Baso % (Auto) 0.2 Lymph # (Auto) 2.0 [place]ink # (Auto) 0.5 Eos # (Auto) 0.0 Baso # (Auto) 0.0 Abs Immat Gran (auto) 0.02 Absolute Neuts (auto) 3.0 Absolute Nucleated RBC 0.000 Nucleated RBC % (auto) 0.0 Anion Gap 14 Estim Creat Clear Calc 39.3 Estimated GFR 42 Random Glucose 148 H Calcium 9.8 Assessment and Plan (1) Embolic cerebral infarction: Status: Acute (2) Transient cerebral ischemia: Status: Acute (3) Cerebrovascular accident (CVA) due to embolic occlusion of right middle cerebral artery: Status: Acute (4) CKD (chronic kidney disease): Status: Acute (5) PAF (paroxysmal atrial fibrillation): Status: Acute (6) Essential hypertension: Status: Acute Plan 75-year-old male, with a background medical history of 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 Acute CVA; right middle cerebral artery - cardioembolic Prior CVA R MCA - chronic L facial droop HTN HLD Presents with expressive aphasia and word-finding difficulty, which resolved prior to presentation 09:30 07/21. CT brain on presentation negative ECHO and carotid ultrasound ordered. MRI conducted 07/22, revealing acute CVA with punctate hemorrhages. No new focal neurological deficit was identified. Neurology consult and recommendations provided. Given patient's CKD stage IIIB & > 24 hour since presentation, CTA was deferred. As per Neurology recommendation (greatly appreciated), recommendation is to continue anticoagulation, as the source is suspected to be cardioembolic in etiology (likely from missed doses of apixaban). Patient has endorsed relative noncompliance with medication. PLAN - Neurochecks q4hrly - Continue apixaban - Continue aspirin - high-dose statin - control T2 DM - losartan 25 mg OD p.o. Paroxysmal Atrial fibrillation PLAN - carvedilol 12.5 mg b.i.d. p.o. - diltiazem 120 mg ER - apixaban 5 mg b.i.d. p.o. T2 DM Well controlled on metformin CKD stage IIIA/3B Variable EGFR, that is excluded the patient from obtaining a CTA for further evaluation, especially given resolution of previous symptoms, lack of symptom recrudescence & > 24 hours since presentation. Renal function stable Polyuria Assessment: Patient reports increased urinary frequency. Denies dysuria, abdominal pressure, flank or back pain, and hematuria. Plan: - Monitor symptoms - No specific interventions at this time - QUALITY METRICS - VTE: Continue Apixaban - CODE STATUS: Full code - DIET: Cardiac diet Quality Stroke Does the patient have a stroke diagnosis?: Yes Reason for No Anti-thrombotic by Day Two: N/A - Med Ordered VTE Prior VTE?: No VTE Risk Level:: Medical - moderate - high VTE Device Contraindication: Treatment Not Indicated VTE Drug Contraindication: N/A - Med Ordered
--- NOTE | 2025-07-24 16:29 | PC.NURSE ---
Addendum entered by Corin Lee RN 07/24/25 16:56: daughter's phone number [phone] Original Note: per pt, daughter Courtney is okay to receive information.
[2025-07-25 03:37] VITALS: BP 141/76; PULSE 72; RESP 18; TEMP 36.6; O2SAT 98
[2025-07-25 07:54] VITALS: BP 117/85; PULSE 85; RESP 18; TEMP 36.4; O2SAT 96
[2025-07-25 08:00] VITALS: BP 117/85; PULSE 85; RESP 18; TEMP 36.4; O2SAT 96
[2025-07-25] MEDS: Aspirin Enteric Coated 81 MG TABLET.DR PO (08:09)
[2025-07-25] MEDS: 0.9 % Sodium Chloride Flush 3 ML SYRINGE IVFLUSH ×2 (08:10→16:50)
[2025-07-25] MEDS: dilTIAZem HCL CD 120 MG CAP.ER.DEG PO (08:24)
[2025-07-25 10:58] VITALS: BP 115/73; PULSE 94; RESP 18; TEMP 36.1; O2SAT 96
--- NOTE | 2025-07-25 12:45 | W.MHC.F2F ---
Service Date Service Date: 07/25/25 Encounter Date of encounter: 07/25/25 Reasons for Services Signs and symptoms assessed: Suffered with acute CVA right MCA; weakness on mobilization, prolonged bed rest. Reason for chcf: neurological assessment, medication management, medication treatment and teach disease management Reason for physical therapy: home safety and mobility, therapeutic exercises, gait/transfer training, assess need for DME, ADL training and energy conservation Reason for occupational therapy: home safety and mobility, therapeutic exercises, restore joint function, gait/transfer training, assess need for DME and energy conservation Homebound: Leaving the home is medically contraindicated at this time without the asist of a device and/or another person due th the listed conditions above and below. Reason homebound: unsteady gait / fall risk, poor balance / fall risk and weakness related to hospital stay Certification: Based on the above findings, I certify that this patient is confined to the home and needs intermittent chcf care, physical therapy and/or speech therapy, or continues to need occupational therapy. The patient is under my care, and I have initiated the establishment of the plan of care. The patient will be followed by a physician who will periodically review the plan of care. Time Spent With Patient Time: Total time managing care of this patient today 15 minutes.
--- NOTE | 2025-07-25 12:47 | PM.DS ---
DS: Providers Provider Date of Service: 07/25/25 Date of admission: 07/21/25 15:44 Date of discharge: 07/25/25 Primary care physician: Celestine Gamboa MD Admitting clinician: Hiren Ag Consults: 07/22/25 18:30 Consult to Neurology Routine Consulting Provider: [facility] Reason for consultation: acute CVA Has provider been notified: Yes Attending physician on discharge: Hiren Ag DS: Diagnosis Discharge Diagnosis (1) Embolic cerebral infarction: Status: Acute (2) Transient cerebral ischemia: Status: Acute (3) Cerebrovascular accident (CVA) due to embolic occlusion of right middle cerebral artery: Status: Acute (4) CKD (chronic kidney disease): Status: Acute (5) PAF (paroxysmal atrial fibrillation): Status: Acute (6) Essential hypertension: Status: Acute DS: Summary Hospital Course Hospital Course: 75-year-old male, with a background medical history of CVA R MCA chronic left-sided facial droop, paroxysmal atrial fibrillation on apixaban, HTN, CKD 3A, T2 DM, presenting to hospital with slurred speech, admitted with TIA, found to have acute right MCA CVA cardioembolic in nature 2/2 medication noncompliance s/p conservative management without significant deficit. The patient's reports that at 09:00 today, the patient was speaking normally, and suddenly began slurring his speech. His speech was incomprehensible and much slower than it normally is. The patient seemed to understand his communicating with him. This lasted for a total of 30 minutes, until it self resolved. The patient and the patient's tonight hemiplegia, hemiparesis, vision changes, dizziness, loss of balance. The patient denies chest pain, retrosternal pressure, palpitations, dizziness, diaphoresis. No nausea, vomiting, diarrhea, abdominal pain. No new rashes, bruising. No new change in medications. The patient reports compliance with taking apixaban twice a day every day. In the emergency room, ECG was unremarkable for acute changes, CT head negative, lab work unremarkable. Acute CVA; right middle cerebral artery - cardioembolic Prior CVA R MCA - chronic L facial droop HTN HLD Presents with expressive aphasia and word-finding difficulty, which resolved prior to presentation 09:30 07/21. CT brain on presentation negative ECHO and carotid ultrasound ordered. MRI conducted 07/22, revealing acute CVA with punctate hemorrhages. No new focal neurological deficit was identified. Neurology consult and recommendations provided. Given patient's CKD stage IIIB & > 24 hour since presentation, CTA was deferred. As per Neurology recommendation (greatly appreciated), recommendation is to continue anticoagulation, as the source is suspected to be cardioembolic in etiology (likely from missed doses of apixaban). Patient has endorsed relative noncompliance with medication. Status at Discharge Functional status at discharge: independent ambulation Overall status at discharge: patient is back to baseline Time Attestation Total time managing care of this patient today: 35 mintues. Discharge Coordination Time (in mins): 15 Quality: Safe Use of Opioids Does Pt have an Active Cancer Diagnosis on the Problem List?: No Quality: Stroke Does the patient have a stroke diagnosis?: Yes Reason for No Anti-thrombotic at DC: N/A - Med Ordered Reason for No Anticoagulant at DC: N/A - Med Ordered Reason Not Initiating IV-Tpa: Not indicated Reason for No Anti-thrombotic by Day Two: Not indicated Reason for No Statin at DC: N/A - Med Ordered Physical Exam Exam: Exam: General: A&O x3, oriented to time place person and situation, comfortable, no pain Cardiac: S1, S2 auscultated with no S3/4, no MRG. Well perfused. Respiratory: Normal breath sounds auscultated throughout all lung zones, without wheezing, rales. Normal rate. GI/ : No abdominal pain on palpation, no masses or distentions. MSK: Normal ambulation without pain at bony prominences or musculature Neurological: - Upper extremities: Patient able to extend arms straight, turn hands over, and close eyes. Percussion Tuner strength assessed bilaterally. Arms raised in boxing position. Push and pull strength tested. - Lower extremities: Dorsiflexion and plantarflexion assessed bilaterally. [id number] test performed bilaterally. Leg raise tested bilaterally. - Coordination: [id number] test performed bilaterally. Rapid alternating movements tested. Muscle tone assessed in upper extremities. - Strength is completely preserved in upper and lower extremities. Coordination seems to be okay but a bit slow. Vital Signs: Vital Signs: Last Vital Signs Temp 97.0 F 07/25/25 10:58 Pulse 94 07/25/25 10:58 Resp 18 07/25/25 10:58 BP 115/73 07/25/25 10:58 Pulse Ox 96 07/25/25 10:58 O2 Del Method Room Air 07/25/25 10:58 BMI result Body Mass Index 27.9 Discharge Plan Discharge Anticipated Discharge Date/Time: 07/25/25 12:51 Patient Disposition: Home Health Service Discharge Diagnosis: Acute cardioembolic CVA right MCA 2/2 atrial fibrillation medication noncompliance Referrals: [facility] [] - 3-5 Days Referral Note: [facility] will call you to schedule home visits. Celestine Gamboa MD [Primary Care Provider, Internal Medicine] - 1 Week Discharge Medications: New atorvastatin 80 mg Tablet 80 mg PO BEDTIME 30 Days Qty: 30 1RF Eliquis 5 mg Tablet 5 mg PO BID 30 Days Qty: 60 1RF Continued diltiazem HCl 120 mg capsule,extended release 24hr 120 mg PO DAILY Qty: 90 3RF Rx Instructions: Please call to schedule cardiology appt carvedilol 12.5 mg tablet 12.5 mg PO BID Qty: 180 3RF allopurinol 100 mg tablet 200 mg PO DAILY losartan 25 mg tablet 25 mg PO DAILY pravastatin 40 mg tablet 40 mg PO BEDTIME aspirin 81 mg tablet,delayed release (DR/EC) 81 mg PO DAILY metformin 500 mg tablet 500 mg PO BID Discontinued apixaban 5 mg tablet 5 mg PO BID 90 Days Qty: 180 1RF Discharge Orders: Discharge Order (Routine); Ordered 07/25/25 Ordered By: Hiren Ag Diet: Advance to usual diet Activity on Discharge: As tolerated Stand Alone Forms: Patient Portal Discharge page Print Language: Armenian Care Plan Goals: As above Health Concerns: - Atrial fibrillation noncompliance with anticoagulation - History of prior CVA - Medication noncompliance Plan of Treatment: Follow up with outpatient Neurology within 1 week of discharge Follow up with PCP within 1 week of discharge Medications: - Continue apixaban - Continue aspirin - Continue atorvastatin - Continue carvedilol - Continue diltiazem Assessment: Hemodynamically stable, back to clinical baseline. No new neurological deficits identified compared to prior to admission
--- NOTE | 2025-07-25 13:08 | MHC.CM.PN ---
Per MD, patient medically cleared for dc home w/ new [facility] services. Daughter at bedside to transport. RN aware. [facility].
== END 2025-07-25 19:44 | disposition home health service (06) | DRG 66 ==
LOC: HO.ED 13:13 → HO.EDOVER 16:00 → HO.IMC 07-22 00:31
PROVIDERS: Admitting Provider Hospitalist; Emergency Provider Emergency Medicine; PCP Internal Medicine; Visit Provider Hospitalist
DX: I63.411 Cerebral infarction due to embolism of right middle cerebral artery (principal); I12.9 Hypertensive chronic kidney disease with stage 1 through stage 4 chronic kidney disease, or unspecified chronic kidney disease; R47.01 Aphasia; R29.701 NIHSS score 1; E78.5 Hyperlipidemia, unspecified; E11.22 Type 2 diabetes mellitus with diabetic chronic kidney disease; I48.0 Paroxysmal atrial fibrillation; I69.392 Facial weakness following cerebral infarction; N18.32 Chronic kidney disease, stage 3b; T45.516A Underdosing of anticoagulants, initial encounter; Z79.899 Other long term (current) drug therapy
CPT/HCPCS: 36415; 70450; 70553; 80048; 80061; 80076; 81001; 82947; 83036; 83735; 83880; 84484; 85025; 85610; 93005; 93306; 93880; 97116; 97161; 99285; A9585; Q9957

== ENCOUNTER → 2025-07-21 10:28 | Outpatient (BNV) | payer OTHER, SELFPAY | PROVIDERS: Emergency Provider Emergency Medicine; PCP Internal Medicine; Visit Provider Internal Medicine Cardiovascular Disease | DX: I48.91 Unspecified atrial fibrillation (principal); I51.7 Cardiomegaly | CPT/HCPCS: 93010 ==

== ENCOUNTER → 2025-07-21 10:28 | Outpatient (BNV) | payer OTHER, SELFPAY | PROVIDERS: Emergency Provider Emergency Medicine; PCP Internal Medicine; Visit Provider Radiology Diagnostic Radiology | DX: R47.81 Slurred speech (principal); R41.0 Disorientation, unspecified; Z82.3 Family history of stroke | CPT/HCPCS: 70450 ==

== ENCOUNTER 2025-07-21 15:44 | Outpatient (BNV) | payer MEDICARE, SELFPAY | END 2025-07-22 16:55 | PROVIDERS: Admitting Provider Hospitalist; Emergency Provider Emergency Medicine; PCP Internal Medicine; Visit Provider Radiology Diagnostic Radiology | DX: G45.9 Transient cerebral ischemic attack, unspecified (principal) | CPT/HCPCS: 70553; 93880 ==

== ENCOUNTER 2025-07-21 15:44 | Outpatient (BNV) | payer MEDICARE, SELFPAY | END 2025-07-22 07:00 | PROVIDERS: Admitting Provider Hospitalist; Emergency Provider Emergency Medicine; PCP Internal Medicine; Visit Provider Internal Medicine Cardiovascular Disease | DX: I51.7 Cardiomegaly (principal); I35.8 Other nonrheumatic aortic valve disorders; G45.9 Transient cerebral ischemic attack, unspecified | CPT/HCPCS: 93306 ==

== ENCOUNTER → 2025-07-21 15:44 | Outpatient (BNV) | payer OTHER, SELFPAY | PROVIDERS: Admitting Provider Hospitalist; Emergency Provider Emergency Medicine; PCP Internal Medicine; Visit Provider Hospitalist | DX: I63.411 Cerebral infarction due to embolism of right middle cerebral artery (principal); G45.9 Transient cerebral ischemic attack, unspecified; N18.31 Chronic kidney disease, stage 3a; I48.0 Paroxysmal atrial fibrillation; I10 Essential (primary) hypertension | CPT/HCPCS: 99222; 99232; 99233; 99239; 99499; G0180 ==

== ENCOUNTER → 2025-07-21 15:44 | Outpatient (BNV) | payer MEDICARE, SELFPAY | PROVIDERS: Admitting Provider Hospitalist; Emergency Provider Emergency Medicine; PCP Internal Medicine; Visit Provider Psychiatry & Neurology Neurology | DX: I63.411 Cerebral infarction due to embolism of right middle cerebral artery (principal) | CPT/HCPCS: 99223 ==

== ENCOUNTER 2025-07-30 14:53 | Outpatient (AMB) | payer MEDICARE, SELFPAY ==
--- NOTE | 2025-07-30 10:46 | MHC.PC.OV ---
Vital Signs 07/30/25 14:59 Height 5 ft 7 in Weight 165 lb BMI 25.8 BP 116/68 Blood Pressure Location Rt brachial Position Sitting Pulse 92 Pulse Source Pulse Oximeter Temp 97 F Temp Source Temporal Artery Scan Pulse Oximetry (%) 99 Oxygen Delivery Method Room Air Intake Visit Reasons: S/P minor stroke. 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 Accompanied by: Spouse Allergies No Known Allergies Allergy (Verified 07/30/25 10:47) Medication List - Last Reconciled 07/30/25 by JESSICA Alcocer apixaban 5 mg PO BID 30 days aspirin 81 mg PO DAILY 30 days atorvastatin (Lipitor) 80 mg PO BEDTIME 30 days carvedilol 12.5 mg See Protocol PO BID 30 days dapagliflozin propanediol (Farxiga) 5 mg PO DAILY diltiazem HCl CD (Cardizem CD) 120 mg See Protocol PO DAILY 30 days losartan 25 mg See Protocol PO DAILY 30 days Tobacco use date assessed: 07/30/25 Fall risk assessment: No Falls in past year Last assessed Fall Risk: 07/30/25 Dental Screening Dental Screen Date: 07/30/25 Did you have a dental visit in the last 12 months?: No Did you have a dental problem in the last 6 months where you did not have access to dental care?: No HPI HPI Comments History of Present Illness Details The patient is a 75-year-old male with HTN, DM, CKD, Afib on Eliquis, and history of gout presenting with management of multiple chronic conditions, including a recent stroke. The patient experienced a stroke last week, which is his third occurrence. He has been on blood thinners since his first stroke, but has not been under the care of a neurologist. The patient has a history of atrial fibrillation and has been on Eliquis He is on multiple medications for hypertension, including carvedilol, Losartan and Diltiazem. He is on Atorvastatin for hyperlipidemia. He was on Metformin for diabetes mellitus but it was stopped during his IP for CVA. He has been taking Allopurinol for Gout but has not had an attack in years. The patient has expressed difficulty in adhering to his medication regimen due to the number of medications prescribed. He would like to decrease his medications . Patient was informed and verbally consented to the use of an ambient scribe for clinic note documentation during this visit. 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 CKD (chronic kidney disease) Diabetes Essential hypertension Health care maintenance History of CVA (cerebrovascular accident) History of gout Hyperlipidemia associated with type 2 diabetes mellitus Other and unspecified hyperlipidemia PAF (paroxysmal atrial fibrillation) Surgical History No pertinent past surgical history Family History (Updated 07/30/25 @ 15:08 by Malia Sinha MA) Father HTN (hypertension) Mother HTN (hypertension) Social History Household Members: Family Housing: House Do you presently have visiting nurse or other home services: No Comment: Patient not compliant with safety measures. Patient Tobacco Use Status: Never used Tobacco e-Cigarette/Vaping Use: Never Used service: No Current occupational status: retired Cognitive needs: No Hearing needs: No Vision needs: No Questionnaire PHQ-9 Over the last 2 weeks, how often have you been bothered by any of the following problems? 1. Little interest or pleasure in doing things: not at all 2. Feeling down, depressed, or hopeless: not at all 3. Trouble falling or staying asleep, or sleeping too much: not at all 4. Feeling tired or having little energy: not at all 5. Poor appetite or overeating: not at all 6. Feeling bad about yourself - or that you are a failure or have let yourself or your family down: not at all 7. Trouble concentrating on things, such as reading the newspaper or watching television: not at all 8. Moving or speaking so slowly that other people could have noticed. Or the opposite - being so fidgety or restless that you have been moving around a lot more than usual: not at all 9. Thoughts that you would be better off or of hurting yourself in some way: not at all Total score: 0 Depression Screening Interpretation: Negative Depression Screening Done: Yes Source: Developed by Drs. Atilio Dunn, Neelima Shankar, Thomas Philippe and colleagues, with an educational rosendo from [employer]. Thrive Questionnaire Date Thrive assessed: 07/30/25 I am a: Patient Within the past 12 months, did the food you bought not last and you didn't have the money to get more?: Never true Within the past 12 months, did you worry whether your food would run out before you got money to buy more?: Never true Do you have trouble paying for medicines?: No Do you have trouble getting transportation to medical appointments?: No Do you have trouble paying your heating and electricity bill?: No Do you have trouble taking care of your child, family member or friend?: No Do you have trouble with day-to-day activities such as bathing, preparing meals, shopping, managing finances, etc.?: No Are you currently unemployed and looking for a job?: No Are you interested in more education?: No THRIVE Score: 0 AUDIT C Alcohol Use Questionnaire (AUDIT-C) 1. How often do you have a drink containing alcohol?: Never 3. How often do you have six or more drinks on one occasion?: Never Total Score: 0 JUSTO-7 AMB Questionnaire JUSTO-7 Date JUSTO - 7 assessed: 07/30/25 Feeling nervous, anxious, or on edge: 0 = Not at all Not being able to stop or control worryin = Not at all Worrying too much about different things: 0 = Not at all Trouble relaxin = Not at all Being so restless that it is hard to sit still: 0 = Not at all Becoming easily annoyed or irritable: 0 = Not at all Feeling afraid as if something awful might happen: 0 = Not at all Total JUSTO-7 score (0-4 normal; 5-9 mild; 10-14 moderate; 15-21 severe): 0 Source: Developed by Drs. Atilio Dunn, Neelima Shankar, Thomas Philippe and colleagues, with an educational rosendo from [employer]. Review of Systems Const Details: CONSTITUTIONAL Fatigue HEAD/NECK Negative RESPIRATORY Negative CARDIOVASCULAR Negative GASTROINTESTINAL Negative NEUROLOGICAL Reports increased slowness in movement and need for redirection. Denies weakness, trouble speaking, or walking difficulties. PSYCHIATRIC Negative Physical exam (Primary Care) Vital Signs: Last Vital Signs Temp 97 F 07/30/25 14:59 Pulse 92 07/30/25 14:59 BP 116/68 07/30/25 14:59 Pulse Ox 99 07/30/25 14:59 Oxygen Delivery Method Room Air 07/30/25 14:59 BMI result Body Mass Index 25.8 GENERAL Well developed, Well nourished, in no apparent distress HEENT Head-Normocephalic Neck- Supple, No lymphadenopathy, thyroid WNL RESPIRATORY Normal I:E, Clear to auscultation CARDIOVASCULAR Regular, rate and rhythm, No murmurs or rubs NEUROLOGICAL Gait normal PSYCHIATRIC Oriented to person, place and time Mood and affect WNL Appearance WNL Speech WNL Thought processes WNL Tobacco/Smoking Status: Tobacco use Status Tobacco use date assessed 07/30/25 07/30/25 10:48 Patient Tobacco Use Status Never used Tobacco 07/30/25 10:48 e-Cigarette/Vaping Use Never Used 07/30/25 10:48 PHQ-9: PHQ-9 Score PHQ-9: Total score 0 08/06/25 07:40 Depression Screening Interpretation: Negative Thrive Assessment: Date of Thrive Assessment Date Thrive assessed 07/30/25 07/30/25 10:48 Coding Level of Care Code Established Pt Est Pt Level 4 (24929) Patient Type Established Diagnoses History of CVA (cerebrovascular accident) Z86.73 Essential hypertension I10 Diabetes E11.9 Diabetes mellitus type: type 2 Diabetes mellitus emt intermediate insulin use: without care home use Diabetes mellitus complication status: with kidney complications Diabetes mellitus complication detail: with chronic kidney disease PAF (paroxysmal atrial fibrillation) I48.0 Hyperlipidemia associated with type 2 diabetes mellitus E11.69; E78.5 Stage 3a chronic kidney disease N18.31 Chronic kidney disease stage: stage 3 (moderate) Chronic kidney disease stage 3 subtype: stage 3a (GFR 45-59) History of gout Z87.39 Time Spent (min) 35 Comment Time spent on chart review, medication reconciliation, H&P, patient education, orders, Assessment & Plan Assessment & Plan (1) History of CVA (cerebrovascular accident): Code(s): Z86.73 - Personal history of transient ischemic attack (TIA), and cerebral infarction without residual deficits Category: Medical Plan: The patient has experienced three strokes, with the most recent occurring last week. He is currently on blood thinners for prevention. A referral to a neurologist is planned to provide specialized care and management. Patient to follow up in 8 weeks or sooner if symptoms persist or worsen. (2) Essential hypertension: Comment: BP today was 116/68 Code(s): I10 - Essential (primary) hypertension Category: Medical Plan: The patient is on multiple antihypertensive medications. Blood pressure was well-controlled during the visit, and no changes to the regimen were made at this time. (3) Diabetes: Code(s): E11.9 - Type 2 diabetes mellitus without complications Category: Medical Qualifiers: Diabetes mellitus type: type 2 Diabetes mellitus emt intermediate insulin use: without care home use Diabetes mellitus complication status: with kidney complications Diabetes mellitus complication detail: with chronic kidney disease Plan: The patient is on metformin for diabetes management. A switch to Farxiga is planned, pending insurance approval, to potentially improve cardiovascular and renal outcomes. Patient to follow up in 8 weeks or sooner if symptoms persist or worsen. (4) PAF (paroxysmal atrial fibrillation): Code(s): I48.0 - Paroxysmal atrial fibrillation Category: Medical Plan: The patient's history of atrial fibrillation is noted, though it is unclear if it is actively managed. Further evaluation may be necessary to determine the need for ongoing treatment. (5) Hyperlipidemia associated with type 2 diabetes mellitus: Code(s): E11.69 - Type 2 diabetes mellitus with other specified complication; E78.5 - Hyperlipidemia, unspecified Category: Medical Plan: The patient is currently taking atorvastatin for hyperlipidemia. No changes to this medication were discussed during the visit. (6) CKD (chronic kidney disease): Code(s): N18.9 - Chronic kidney disease, unspecified Category: Medical Qualifiers: Chronic kidney disease stage: stage 3 (moderate) Chronic kidney disease stage 3 subtype: stage 3a (GFR 45-59) Qualified Code(s): N18.31 - Chronic kidney disease, stage 3a Plan: Patient to get labs and to continue to follow up with Sales Management Trainee (7) History of gout: Code(s): Z87.39 - Personal history of other diseases of the musculoskeletal system and connective tissue Category: Medical Plan: The patient is taking allopurinol for gout, although he has not had a flare-up recently. The plan is to discontinue allopurinol to assess its necessity. Patient to follow up as needed if symptoms persist or worsen. Plan During the visit, we discussed the patient's recent stroke and the importance of continuing blood thinners. We also reviewed his medication regimen, considering a switch from metformin to Farxiga for diabetes management, pending insurance approval. A referral to neurology was recommended for further evaluation and management of his stroke history. We also addressed the possibility of discontinuing allopurinol for gout, given the absence of recent flare-ups. Orders: Orders Complete Blood Count no Diff 07/30/25 I10 - Essential (primary) hypertension, Z00.00 - Encounter for general adult medical examination without abnormal findings TSH reflex Free T4 07/30/25 I10 - Essential (primary) hypertension, Z00.00 - Encounter for general adult medical examination without abnormal findings Comprehensive Met. Panel 07/30/25 I10 - Essential (primary) hypertension, Z00.00 - Encounter for general adult medical examination without abnormal findings Hemoglobin A1c 07/30/25 E11.9 - Type 2 diabetes mellitus without complications Lipid Panel 07/30/25 E11.69 - Type 2 diabetes mellitus with other specified complication, E78.5 - Hyperlipidemia, unspecified Referrals Neurology Referral Z86.73 - Personal history of transient ischemic attack (TIA), and cerebral infarction without residual deficits Medications: New dapagliflozin propanediol (Farxiga) 5 mg PO DAILY 60 tabs 0RF for diabetes Discontinued allopurinol Discontinued Reason: Doctor's Order 200 mg (2 x 100 mg) PO DAILY 30 days 60 tabs 1RF metformin Discontinued Reason: Doctor's Order 500 mg PO BIDWM 30 days 60 tabs 1RF Patient Instructions: - Continue taking prescribed blood thinners and other medications as directed. - Follow up with neurology as referred for stroke management. - Monitor for any signs of gout flare-ups after discontinuing allopurinol. - Schedule a follow-up appointment in four weeks and complete lab work a few days prior.
[2025-07-30 14:59] VITALS: BP 116/68; PULSE 92; TEMP 36.1; O2SAT 99; BMI 25.8
--- OUTSIDE RECORDS SUMMARY | 2025-07-30 18:22 | XMS_ITS | Clinical Summary ---
Author Organization [facility] it Address [address] [place] [address] Care Team Providers Care Cleat Thrower Name Role Phone Unavailable Primary Care Provider [...]
--- OUTSIDE RECORDS SUMMARY | 2025-07-30 18:22 | XMS_ITS | Clinical Summary ---
Author Organization [facility] Address [address] [place] [phone] Phone Care Team Providers Care Field Installer Name Role Phone Rex Avila MD Primary Care Provider [phone] Allergies No known active allergies Medications apixaban [...] AM EDT) Hemoglobin A1C 6.3(H) (4.0-5.6) % [facility] Comment: MONITORING: In known diabetic patients, hemoglobin A1c targets should be discussed with health care provider. DIAGNOSTIC USE: The [place] [employer] (ADA) and the World Health [...] Supplement 1 Testing performed or reported by [facility], a Service of [facility], [address] [place] [address] Javier Costa MD, First Line Production Supervisor [facility]# [id number] 09/07/2021 8:37 AM EDT 09/07/2021 8:44 AM EDT us Edson Henry MD LAB BLOOD ORDERABLES Final Re sult [facility] from Last 3 Months or Most Recently Relevant to Health Maintenance Insurance [employer] Care Teams Field Installer Relationship Specialty Start Date End Date Rex vAila MD [address] [place] [address] [id number] [place], [place] PCP - General 11/29/20
--- OUTSIDE RECORDS SUMMARY | 2025-09-23 20:00 | XMS_ITS | Clinical Summary ---
Author Organization Unknown Care Team Providers Care Covered Button Maker Name Role Phone HORTENSIA FORD, SOFIA Unavailable Unavailab Aline ANTONY, MILLI Unavailable Unavailable KIMI UNDERWOODN, JEFF Unavailable Unavailable LEILANI PT, BARBARA Unavailable Unavailable MATTHEW ROUTER MACHINE OPERATOR, DOUGIE Unavailable Unavailable LENGIEZA OT, SOPHIE Unavailable Unavailable CONDINO MEHDI/WOODS, LM Unavailable Unav ailable Payers Payer Name Policy Type Policy Number Effective Date Expira tion Date [employer].AUTH [id number] Problems Condition Name Condition Details Condition Category Status Onset Date Resolution Date Last Treatment Date Treating Clinician Comments TRANSIENT CEREBRAL ISCHEMIC ATTACK, UNSPECIFIED Active 07-22 00:00: 00 Allergies, Adverse Reactions, Alerts Allergy Name Allergy Type Status Severity Reaction(s) Onset Date Inactive Date Treating Clinician Comments NO KNOWN ALLERGIES Propensity to adverse reactions Active 07-27 16:40: 39 Vital Signs Vital Name Observation Time Observation Value Commen ts Temperature 2025-07-27 17:33:00.000 97.6 [degF] BMI (%) 2025-07-27 16:53:05.000 27 kg/m2 Height 2025-07-27 16:52:57.000 67 [in_us] Pulse 2025-07-27 17:33:00.000 59 /min O2 Saturation (%) 2025-07-27 17:33:00.000 100 % Respirations 2025-07-27 17:33:00.000 18 /min Weight (lbs) 2025-07-27 16:53:05.000 175 [lb_av] Systolic Blood Pressure 2025-07-27 17:33:00.000 122 mm [Hg] Diastolic Blood Pressure 2025-07-27 17:33:00.000 60 mm [Hg] Plan of Treatment Planned Activity Planned Date Details Comments Future Scheduled Test RN TO OBSE RVE, ASSESS, EVALUATE, AND DEVELOP AN INDIVIDUALIZED PLAN OF CARE. AGENCY MAY ACCEPT ORDERS FROM CONSULTING PHYSICIANS. RN TO OBSERVE AND ASSESS, STEEL SHOT HEADER OPERATOR/INSPECTOR CLIP ON SUNGLASSES TO OBSERVE FOR RISK FOR FALLS AND INSTRUCT IN FALL PREVENTION, HOME SAFETY, MEDICATION MANAGEMENT, INFECTION PREVENTION, AND NUTRITION MANAGEMENT. RN/STEEL SHOT HEADER OPERATOR/INSPECTOR CLIP ON SUNGLASSES NURSE MAY PERFORM O2 SATURATION LEVEL ON ADMISSION AND PRN FOR RN TO ASSESS/STEEL SHOT HEADER OPERATOR TO OBSERVE PATIENT, WITH NOTIFICATION TO THE PHYSICIAN IF SATURATION IS 90% IN THE ABSENCE OF MORE SPECIFIC PARAMETERS FROM THE PHYSICIAN. AGENCY MAY PERFORM A RESUMPTION OF CARE VISIT FOLLOWING ANY HOSPITAL ADMISSION. RN/STEEL SHOT HEADER OPERATOR/INSPECTOR CLIP ON SUNGLASSES TO MONITOR CO-MORBID CONDITIONS LISTED ON THE PLAN OF CARE AND ANY NEW CONDITIONS THAT PRESENT THEMSELVES DURING THIS EPISODE TO IDENTIFY CHANGES AND INTERVENE TO MINIMIZE COMPLICATIONS. [code = RN TO OBSERVE, ASSESS, EVALUATE, AND DEVELOP AN INDIVIDUALIZED PLAN OF CARE. AGENCY MAY ACCEPT ORDERS FROM CONSULTING PHYSICIANS. RN TO OBSERVE AND ASSESS, STEEL SHOT HEADER OPERATOR/INSPECTOR CLIP ON SUNGLASSES TO OBSERVE FOR RISK FOR FALLS AND INSTRUCT IN FALL PREVENTION, HOME SAFETY, MEDICATION MANAGEMENT, INFECTION PREVENTION, AND NUTRITION MANAGEMENT. RN/STEEL SHOT HEADER OPERATOR/INSPECTOR CLIP ON SUNGLASSES NURSE MAY PERFORM O2 SATURATION LEVEL ON ADMISSION AND PRN FOR RN TO ASSESS/STEEL SHOT HEADER OPERATOR TO OBSERVE PATIENT, WITH NOTIFICATION TO THE PHYSICIAN IF SATURATION IS 90% IN THE ABSENCE OF MORE SPECIFIC PARAMETERS FROM THE PHYSICIAN. AGENCY MAY PERFORM A RESUMPTION OF CARE VISIT FOLLOWING ANY HOSPITAL ADMISSION. RN/STEEL SHOT HEADER OPERATOR/INSPECTOR CLIP ON SUNGLASSES TO MONITOR CO-MORBID CONDITIONS LISTED ON THE PLAN OF CARE AND ANY NEW CONDITIONS THAT PRESENT THEMSELVES DURING THIS EPISODE TO IDENTIFY CHANGES AND INTERVENE TO MINIMIZE COMPLICATIONS.] Future Scheduled Test RISK FOR H OSPITALIZATION; RN TO ASSESS/TEACH, INSPECTOR CLIP ON SUNGLASSES/STEEL SHOT HEADER OPERATOR TO OBSERVE/TEACH PATIENT/CAREGIVER ON RISK FOR HOSPITALIZATION/EMERGENCY ROOM VISITS, TEACH SIGNS AND SYMPTOMS THAT PUT PATIENT AT RISK, WHEN TO NOTIFY NURSE/PHYSICIAN OF COMPLICATIONS/DECLINE, AND WHEN TO CALL 911. [code = RISK FOR HOSPITALIZATION; RN TO ASSESS/TEACH, INSPECTOR CLIP ON SUNGLASSES/STEEL SHOT HEADER OPERATOR TO OBSERVE/TEACH PATIENT/CAREGIVER ON RISK FOR HOSPITALIZATION/EMERGENCY ROOM VISITS, TEACH SIGNS AND SYMPTOMS THAT PUT PATIENT AT RISK, WHEN TO NOTIFY NURSE/PHYSICIAN OF COMPLICATIONS/DECLINE, AND WHEN TO CALL 911.] Future Scheduled Test MEDICATION MANAGEMENT; RN/STEEL SHOT HEADER OPERATOR/INSPECTOR CLIP ON SUNGLASSES TO REVIEW MEDICATIONS FOR INTERACTIONS, EFFECTIVENESS OF DRUG THERAPY, AND SIGNS/SYMPTOMS OF ADVERSE REACTIONS. MAY INSTRUCT AND REINFORCE MEDICATION TEACHING RELATED TO THE USE OF MEDICATIONS, DOSAGE, FREQUENCY, PURPOSE, SIDE EFFECTS, AND TO REPORT COMPLICATIONS. [code = MEDICATION MANAGEMENT; RN/STEEL SHOT HEADER OPERATOR/INSPECTOR CLIP ON SUNGLASSES TO REVIEW MEDICATIONS FOR INTERACTIONS, EFFECTIVENESS OF DRUG THERAPY, AND SIGNS/SYMPTOMS OF ADVERSE REACTIONS. MAY INSTRUCT AND REINFORCE MEDICATION TEACHING RELATED TO THE USE OF MEDICATIONS, DOSAGE, FREQUENCY, PURPOSE, SIDE EFFECTS, AND TO REPORT COMPLICATIONS.] Future Scheduled Test CARDIOVASC ULAR SYSTEM; RN TO ASSESS/TEACH, STEEL SHOT HEADER OPERATOR/INSPECTOR CLIP ON SUNGLASSES TO OBSERVE/TEACH RELATED TO ALTERED CARDIOVASCULAR STATUS TO MINIMIZE COMPLICATIONS AND REDUCE HOSPITALIZATION. [code = CARDIOVASCULAR SYSTEM; RN TO ASSESS/TEACH, STEEL SHOT HEADER OPERATOR/INSPECTOR CLIP ON SUNGLASSES TO OBSERVE/TEACH RELATED TO ALTERED CARDIOVASCULAR STATUS TO MINIMIZE COMPLICATIONS AND REDUCE HOSPITALIZATION.] Future Scheduled Test ARRHYTHMIA MANAGEMENT; RN TO ASSESS AND TEACH, STEEL SHOT HEADER OPERATOR/INSPECTOR CLIP ON SUNGLASSES TO OBSERVE AND TEACH WARNING SIGNS AND SYMPTOMS TO AVOID HOSPITALIZATION. [code = ARRHYTHMIA MANAGEMENT; RN TO ASSESS AND TEACH, STEEL SHOT HEADER OPERATOR/INSPECTOR CLIP ON SUNGLASSES TO OBSERVE AND TEACH WARNING SIGNS AND SYMPTOMS TO AVOID HOSPITALIZATION.] Future Scheduled Test SKIN INTEG RITY RN TO ASSESS AND TEACH, STEEL SHOT HEADER OPERATOR/INSPECTOR CLIP ON SUNGLASSES TO OBSERVE AND TEACH INTEGUMENTARY STATUS TO IDENTIFY CHANGES AND INTERVENE TO MINIMIZE COMPLICATIONS. PROVIDE SKILLED TEACHING OF GENERAL WOUND AND SKIN CARE AND PREVENTION RELATED ACTUAL ALTERED SKIN INTEGRITY [code = SKIN INTEGRITY RN TO ASSESS AND TEACH, STEEL SHOT HEADER OPERATOR/INSPECTOR CLIP ON SUNGLASSES TO OBSERVE AND TEACH INTEGUMENTARY STATUS TO IDENTIFY CHANGES AND INTERVENE TO MINIMIZE COMPLICATIONS. PROVIDE SKILLED TEACHING OF GENERAL WOUND AND SKIN CARE AND PREVENTION RELATED ACTUAL ALTERED SKIN INTEGRITY] Future Scheduled Test NEUROLOGIC AL SYSTEM MANAGEMENT; RN TO ASSESS AND TEACH, INSPECTOR CLIP ON SUNGLASSES/STEEL SHOT HEADER OPERATOR TO OBSERVE AND TEACH RELATED TO ALTERED NEUROLOGICAL STATUS TO MINIMIZE COMPLICATIONS AND REDUCE HOSPITALIZATION. [code = NEUROLOGICAL SYSTEM MANAGEMENT; RN TO ASSESS AND TEACH, INSPECTOR CLIP ON SUNGLASSES/STEEL SHOT HEADER OPERATOR TO OBSERVE AND TEACH RELATED TO ALTERED NEUROLOGICAL STATUS TO MINIMIZE COMPLICATIONS AND REDUCE HOSPITALIZATION.] Future Scheduled Test CEREBRAL V ASCULAR ACCIDENT MANAGEMENT; RN/INSPECTOR CLIP ON SUNGLASSES/STEEL SHOT HEADER OPERATOR TO PROVIDE SKILLED TEACHING AND MANAGEMENT OF POST CEREBRAL VASCULAR ACCIDENT. [code = CEREBRAL VASCULAR ACCIDENT MANAGEMENT; RN/INSPECTOR CLIP ON SUNGLASSES/STEEL SHOT HEADER OPERATOR TO PROVIDE SKILLED TEACHING AND MANAGEMENT OF POST CEREBRAL VASCULAR ACCIDENT.] Future Scheduled Test PAIN MANAG EMENT; RN TO ASSESS AND TEACH, INSPECTOR CLIP ON SUNGLASSES/STEEL SHOT HEADER OPERATOR TO OBSERVE AND TEACH AND PROVIDE EDUCATION ON PAIN MANAGEMENT TECHNIQUES. [code = PAIN MANAGEMENT; RN TO ASSESS AND TEACH, INSPECTOR CLIP ON SUNGLASSES/STEEL SHOT HEADER OPERATOR TO OBSERVE AND TEACH AND PROVIDE EDUCATION ON PAIN MANAGEMENT TECHNIQUES.] Future Scheduled Test DIABETES M ANAGEMENT; RN TO ASSESS AND TEACH, INSPECTOR CLIP ON SUNGLASSES/STEEL SHOT HEADER OPERATOR TO OBSERVE AND TEACH INSTRUCTIONS OF DIABETIC CARE TO INCLUDE: DIET CCHO, CARDIAC SKIN CARE, SIGNS AND SYMPTOMS OF HYPO/HYPERGLYCEMIA, PROPER ADMINISTRATION OF DIABETIC MEDICATION. RN/INSPECTOR CLIP ON SUNGLASSES/STEEL SHOT HEADER OPERATOR TO INSTRUCT ON DIABETIC FOOT CARE AND MONITOR FOR SKIN LESIONS ON LOWER EXTREMITIES. BLOOD GLUCOSE TESTING DAILY. RN TO ASSESS AND TEACH, INSPECTOR CLIP ON SUNGLASSES/STEEL SHOT HEADER OPERATOR TO OBSERVE AND TEACH PATIENT/CAREGIVER ABILITY TO PERFORM AND RECORD BLOOD GLUCOSE TESTING ORDERED AND TO REPORT ABNORMAL FINDINGS TO PHYSICIAN. RN/INSPECTOR CLIP ON SUNGLASSES/STEEL SHOT HEADER OPERATOR MAY PERFORM BLOOD GLUCOSE TEST NEEDED. RN/INSPECTOR CLIP ON SUNGLASSES/STEEL SHOT HEADER OPERATOR TO REPORT TO PHYSICIAN BLOOD GLUCOSE READINGS GREATER THAN 200 OR LESS THAN 80 RN/INSPECTOR CLIP ON SUNGLASSES/STEEL SHOT HEADER OPERATOR TO INSTRUCT PATIENT ON IMPORTANCE OF HGBA1C MONITORING, KIDNEY FUNCTION TEST, EYE AND FOOT EXAMS. [code = DIABETES MANAGEMENT; RN TO ASSESS AND TEACH, INSPECTOR CLIP ON SUNGLASSES/STEEL SHOT HEADER OPERATOR TO OBSERVE AND TEACH INSTRUCTIONS OF DIABETIC CARE TO INCLUDE: DIET CCHO, CARDIAC SKIN CARE, SIGNS AND SYMPTOMS OF HYPO/HYPERGLYCEMIA, PROPER ADMINISTRATION OF DIABETIC MEDICATION. RN/INSPECTOR CLIP ON SUNGLASSES/STEEL SHOT HEADER OPERATOR TO INSTRUCT ON DIABETIC FOOT CARE AND MONITOR FOR SKIN LESIONS ON LOWER EXTREMITIES. BLOOD GLUCOSE TESTING DAILY. RN TO ASSESS AND TEACH, INSPECTOR CLIP ON SUNGLASSES/STEEL SHOT HEADER OPERATOR TO OBSERVE AND TEACH PATIENT/CAREGIVER ABILITY TO PERFORM AND RECORD BLOOD GLUCOSE TESTING ORDERED AND TO REPORT ABNORMAL FINDINGS TO PHYSICIAN. RN/INSPECTOR CLIP ON SUNGLASSES/STEEL SHOT HEADER OPERATOR MAY PERFORM BLOOD GLUCOSE TEST NEEDED. RN/INSPECTOR CLIP ON SUNGLASSES/STEEL SHOT HEADER OPERATOR TO REPORT TO PHYSICIAN BLOOD GLUCOSE READINGS GREATER THAN 200 OR LESS THAN 80 RN/INSPECTOR CLIP ON SUNGLASSES/STEEL SHOT HEADER OPERATOR TO INSTRUCT PATIENT ON IMPORTANCE OF HGBA1C MONITORING, KIDNEY FUNCTION TEST, EYE AND FOOT EXAMS.] Future Scheduled Test FALL REDUC TION MANAGEMENT; RN TO ASSESS AND OBSERVE, STEEL SHOT HEADER OPERATOR/INSPECTOR CLIP ON SUNGLASSES TO OBSERVE FALL RISK FACTORS AND EDUCATE PATIENT/CAREGIVER ON STRATEGIES TO MINIMIZE THE RISK OF FALLING. [code = FALL REDUCTION MANAGEMENT; RN TO ASSESS AND OBSERVE, STEEL SHOT HEADER OPERATOR/INSPECTOR CLIP ON SUNGLASSES TO OBSERVE FALL RISK FACTORS AND EDUCATE PATIENT/CAREGIVER ON STRATEGIES TO MINIMIZE THE RISK OF FALLING.] Future Scheduled Test PHYSICAL T HERAPIST TO EVALUATE FOR BALANCE, STRENGTHENING, AND EDUCATION [code = PHYSICAL THERAPIST TO EVALUATE FOR BALANCE, STRENGTHENING, AND EDUCATION] Goal Patient Goal - N OT GO TO THE HOSPITAL, BE SAFE AT HOME ALONE, GET STRONGER Goal Provider Goal - A PLAN OF CARE WILL BE ESTABLISHED THAT MEETS THE PATIENT S NEEDS. PATIENT WILL DEMONSTRATE OXYGEN SATURATION WITHIN NORMAL LIMITS OR PATIENT S OPTIMAL LEVEL ESTABLISHED BY THE PHYSICIAN THROUGHOUT CARE. CHANGES TO CO-MORBID CONDITIONS AND ANY NEW CONDITIONS WILL BE IDENTIFIED AND REPORTED TO THE PHYSICIAN. Goal Provider Goal - PATIENT/CAREGIVER WILL VERBALIZE UNDERSTANDING OF SIGNS AND SYMPTOMS THAT PUT THE PATIENT AT RISK FOR HOSPITALIZATION /EMERGENCY ROOM VISITS, WHEN TO NOTIFY NURSE/PHYSICIAN OF COMPLICATIONS/DECLINE AND WHEN TO CALL 911. Goal Provider Goal - PATIENT/CAREGIVER TO VERBALIZE, AND CONSISTENTLY DEMONSTRATE EFFECTIVE, SAFE MANAGEMENT OF MEDICATION INCLUDING KNOWLEDGE OF EFFECTIVENESS, POTENTIAL SIDE EFFECTS AND DRUG REACTIONS AND WHEN TO CONTACT THE APPROPRIATE CARE PROVIDER. PATIENT/CAREGIVER WILL BE ABLE TO VERBALIZE UNDERSTANDING OF MEDICATION REGIMEN AND ACCURATELY TAKE MEDICATIONS PRESCRIBED WITHOUT ADVERSE EFFECTS BY EOE Goal Provider Goal - PATIENT / CAREGIVER WILL VERBALIZE/DEMONSTRATE UNDERSTANDING OF MEASURES TO MANAGE ALTERED CARDIOVASCULAR STATUS BY EOE Goal Provider Goal - PATIENT / CAREGIVER WILL VERBALIZE/DEMONSTRATE AN ABILITY TO ADHERE TO SELF-MANAGEMENT OF HEART ARRHYTHMIA TO MINIMIZE COMPLICATIONS AND AVOID HOSPITALIZATION BY END OF EPISODE. Goal Provider Goal - CHANGES IN SKIN INTEGRITY STATUS WILL BE IDENTIFIED AND REPORTED TO THE PHYSICIAN FOR PROMPT INTERVENTION. PATIENT / CAREGIVER WILL VERBALIZE/DEMONSTRATE ADEQUATE KNOWLEDGE OF INTEGUMENTARY STATUS AND APPROPRIATE MEASURES TO PROMOTE SKIN INTEGRITY AND PREVENT INJURY BY EOE Goal Provider Goal - PATIENT / CAREGIVER WILL VERBALIZE/DEMONSTRATE UNDERSTANDING OF MEASURES TO MANAGE ALTERED NEUROLOGICAL STATUS BY END OF EPISODE. Goal Provider Goal - PATIENT / CAREGIVER WILL VERBALIZE/DEMONSTRATE CARE AND SELF-MANAGEMENT OF CVA TO MINIMIZE COMPLICATIONS AND AVOID HOSPITALIZATION BY END OF EPISODE. Goal Provider Goal - PATIENT / CAREGIVER WILL VERBALIZE / DEMONSTRATE UNDERSTANDING OF PAIN CONTROL MEASURES BY EOE Goal Provider Goal - PATIENT / CAREGIVER WILL VERBALIZE / DEMONSTRATE AN ABILITY TO ADHERE TO SELF-MANAGEMENT OF DIABETES MANAGEMENT BY EOE. Goal Provider Goal - PATIENT/CAREGIVER WILL VERBALIZE/DEMONSTRATE UNDERSTANDING OF FALL RISK FACTORS AND IMPLEMENT STRATEGIES TO MINIMIZE FALL RISK. PATIENT/CAREGIVER WILL VERBALIZE/DEMONSTRATE AN ABILITY TO ADHERE TO FALL REDUCTION SELF-MANAGEMENT AND LIFE-STYLE CHANGES BY EOE Progress Notes Progress Notes <paragraph>[Visit Date: 2024 by MONROE THURMAN RN]:</paragraph><paragraph>SNV FOR START OF CARE</paragraph><paragraph></paragraph><paragraph>PATIENT IS A 75-YEAR-OLD MALE, FULL CODE, WHO WENT TO THE HOSPITAL WITH INCREASED CONFUSION AND SLURRED SPEECH. PATIENT WAS FOUND TO HAVE A ACUTE CARDIOEMBOLIC CVA RT MCA SECONDARY TO ATRIAL FIBRILLATION. 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 </paragraph><paragraph></paragraph><paragraph>PATIENT DOES NOT WEAR GLASSES, IS MINIMALLY HARD OF HEARING WITH NO HEARING AIDES, HAS DENTURES BOTH UPPER AND LOWER THAT FIT WELL. PATIENT DENIES TROUBLE SWALLOWING SINCE THE STROKE BUT DOES HAVE SOME DELAYED ANSWERING WHEN ASKING QUESTIONS. REVIEWED MEDICATIONS, PATIENT HAS THEM ALL IN HOME. HOSPITAL PAPERWORK INDICATES PATIENT WASN'T TAKING ELIQUIS APPROPRIATELY, PATIENT STATES HE WAS. DAUGHTER IS FILLING PILLBOX FOR THE PATIENT CURRENTLY, PATIENT DECLINES SPEECH AND PILL PACKS AT THIS TIME. PATIENT'S SKIN IS INTACT, DRY, AND HAS POOR TURGOR. PATIENT TAKES FASTING BLOOD GLUCOSE AND BLOOD PRESSURE DAILY. REVIEWED DIABETIC AND HEART HEALTHY DIET WITH AND PATIENT. REPORTS PATIENT NOW HAS POOR APETITE, ENCOURAGED PATIENT TO EAT EVEN IF HE WASNT HUNGRY. PATIENT IS DECONDITIONED AND HAS IMPAIRED BALANCE, HE COULD USE A CANE BUT IS CURRENTLY FURNITURE WALKING. THERAPY EVALUATION ACCEPTED AND ADDED TO CALENDAR.</paragraph><paragraph></paragraph><paragraph>REVIEWED ADMISSION FOLDER AND CONTENTS, MAGNET, WHEN TO CALL [facility], AND WHEN TO CALL 911. REVIEWED BLEEDING PRECAUTIONS, FALL PRECAUTIONS, AND DIABETIC PRECAUTIONS. PATIENT ACCEPTS TOUCH CALLS. PATIENT CONTINUES TO BE HOMEBOUND DUE TO WEAKNESS, SHORTNESS OF BREATH WITH AMBULATION, AND NEEDING ASSISTANCE TO LEAVE HOME.</paragraph> Encounters Start Date/Time End Date/Time Encounter Type Admission Type Attending [facility] Care [facility] Care Department Encounter ID Discharge Date Discharge Status Discharge Condition Discharge Reason Percent Goals Met 2025-07-27 00:00:00 2025-09-24 00:00:00 Outpatient NEW ADMISSION [facility] [id number] 0.00
== END 2025-07-30 15:56 | disposition home or self-care (01) ==
LOC: HO.HMCHD 14:53
PROVIDERS: PCP Internal Medicine; Visit Provider Physician Assistant Medical
DX: I48.0 Paroxysmal atrial fibrillation (principal); E11.69 Type 2 diabetes mellitus with other specified complication; N18.31 Chronic kidney disease, stage 3a; Z86.73 Personal history of transient ischemic attack (TIA), and cerebral infarction without residual deficits; I10 Essential (primary) hypertension; E78.5 Hyperlipidemia, unspecified; Z87.39 Personal history of other diseases of the musculoskeletal system and connective tissue

== ENCOUNTER → 2025-07-30 14:53 | Outpatient (BNVA) | payer MEDICARE, SELFPAY | PROVIDERS: PCP Internal Medicine; Visit Provider Physician Assistant Medical | DX: I12.9 Hypertensive chronic kidney disease with stage 1 through stage 4 chronic kidney disease, or unspecified chronic kidney disease (principal); E11.22 Type 2 diabetes mellitus with diabetic chronic kidney disease; N18.31 Chronic kidney disease, stage 3a; E11.69 Type 2 diabetes mellitus with other specified complication; E78.5 Hyperlipidemia, unspecified; I48.0 Paroxysmal atrial fibrillation; Z87.39 Personal history of other diseases of the musculoskeletal system and connective tissue; Z86.73 Personal history of transient ischemic attack (TIA), and cerebral infarction without residual deficits; Z79.01 Long term (current) use of anticoagulants; Z79.84 Long term (current) use of oral hypoglycemic drugs; Z79.899 Other long term (current) drug therapy; Z13.31 Encounter for screening for depression; Z13.39 Encounter for screening examination for other mental health and behavioral disorders | CPT/HCPCS: 96127; 99212 ==

== ENCOUNTER → 2025-08-20 23:59 | Outpatient (BNV) | payer MEDICARE, SELFPAY | PROVIDERS: PCP Internal Medicine; Visit Provider Internal Medicine | DX: I48.0 Paroxysmal atrial fibrillation (principal); I69.392 Facial weakness following cerebral infarction; E11.22 Type 2 diabetes mellitus with diabetic chronic kidney disease; N18.32 Chronic kidney disease, stage 3b | CPT/HCPCS: G0180 ==

== ENCOUNTER 2025-08-26 15:48 | Outpatient (REF) | payer MEDICARE, SELFPAY ==
[2025-08-26 17:59] LABS: Hematocrit 35.0 % (42.0-52.0); Hemoglobin 12.5 g/dl (14.0-18.0); Mean Corpuscular HGB Conc 35.7 g/dl (31.0-36.0); Mean Corpuscular Hemoglobin 28.2 pg (27.0-33.0); Mean Corpuscular Volume 79.0 fL (80.0-98.0); NRBC Abs Auto 0.000 X10*3/uL (0.0-0.012); NRBC Pct Auto 0.0 /100WBC (0.0-0.2); Platelet Count 224 X10*3/uL (160-400); Red Blood Count 4.43 X10*6/uL (4.60-5.80); White Blood Count 4.1 X10*3/uL (4.8-10.8)
[2025-08-26 19:27] LABS: Alanine Aminotransferase 27 U/L (0-40); Albumin Level 4.1 g/dL (3.5-5.0); Alkaline Phosphatase 84 U/L (39-117); Anion Gap 13 (12-20); Aspartate Amino Transferase 26 U/L (5-37); Blood Urea Nitrogen 26 mg/dL (9-16); Calcium 10.4 mg/dL (8.4-10.2); Carbon Dioxide 28 mmol/L (22-29); Chloride 108 mmol/L (96-108); Cholesterol 105 mg/dL (<200); Estimated Glomerular Filt Rate 37; HDL Cholesterol 44 mg/dL (>40); Potassium 4.9 mmol/L (3.3-5.1); Sodium 144 mmol/L (135-145); Total Protein 7.1 g/dL (6.5-8.0); Triglycerides 102 mg/dL (<150)
== END 2025-08-26 15:49 | disposition home or self-care (01) ==
LOC: HO.LAB 15:48
PROVIDERS: PCP Internal Medicine; Visit Provider Physician Assistant Medical
DX: Z00.00 Encounter for general adult medical examination without abnormal findings (principal); I10 Essential (primary) hypertension; E11.69 Type 2 diabetes mellitus with other specified complication; E78.5 Hyperlipidemia, unspecified
CPT/HCPCS: 36415; 80053; 80061; 83036; 84443; 85027

== ENCOUNTER 2025-08-27 14:41 | Outpatient (AMB) | payer MEDICARE, SELFPAY ==
[2025-08-27 09:38] VITALS: BP 130/70; PULSE 54; TEMP 36.6; O2SAT 99; BMI 24.7
--- NOTE | 2025-08-27 09:38 | A.OFFPC_ITS ---
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 Accompanied by: Self / Same As Patient Allergies No Known Allergies Allergy (Verified 08/27/25 09:39) Medication List - Last Reconciled 08/31/25 by JESSICA Alcocer apixaban 5 mg PO BID 30 days aspirin 81 mg PO DAILY 30 days atorvastatin (Lipitor) 80 mg PO BEDTIME 30 days carvedilol 12.5 mg See Protocol PO BID 30 days diltiazem HCl CD (Cardizem CD) 120 mg See Protocol PO DAILY 30 days losartan 25 mg See Protocol PO DAILY 30 days metformin ER 500 mg PO BID sitagliptin phosphate (Januvia) 50 mg PO DAILY Tobacco use date assessed: 08/27/25 Fall risk assessment: No Falls in past year Last assessed Fall Risk: 08/27/25 Dental Screening Dental Screen Date: 08/27/25 Did you have a dental visit in the last 12 months?: Yes Did you have a dental problem in the last 6 months where you did not have access to dental care?: No HPI HPI Comments History of Present Illness Details The patient is a 75-year-old male with HTN, DM, CKD, Afib on Eliquis, and history of gout presenting with his for follow up anemia, chronic kidney disease, and type 2 diabetes mellitus. His recent labs showed a stable anemia, persistant CKD and glucose of 192 with A1C of 8.3%. The rest of his labs were essentially normal. The anemia has been stable and is likely related to chronic kidney disease, which has not shown significant changes in function. He will follow up with his Office Support Assistant. The patient's type 2 diabetes mellitus is managed with metformin 500mg BID, but recent lab results show an elevated hemoglobin A1c of 8.3%. Dietary changes have been made to improve blood glucose control, and the patient has experienced weight loss, which is beneficial for diabetes management. He was referred to Neurology to follow up on recent CVA. He was given an appointment for 12/03/24 but is on list for cancelations. Patient was informed and verbally consented to the use of an ambient scribe for clinic note documentation during this visit. 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 Patient Tobacco Use Status: Never used Tobacco e-Cigarette/Vaping Use: Never Used service: No Current occupational status: retired Cognitive needs: No Hearing needs: No Vision needs: No Questionnaire PHQ-9 Over the last 2 weeks, how often have you been bothered by any of the following problems? 1. Little interest or pleasure in doing things: not at all 2. Feeling down, depressed, or hopeless: not at all 3. Trouble falling or staying asleep, or sleeping too much: not at all 4. Feeling tired or having little energy: not at all 5. Poor appetite or overeating: not at all 6. Feeling bad about yourself - or that you are a failure or have let yourself or your family down: not at all 7. Trouble concentrating on things, such as reading the newspaper or watching television: not at all 8. Moving or speaking so slowly that other people could have noticed. Or the opposite - being so fidgety or restless that you have been moving around a lot more than usual: not at all 9. Thoughts that you would be better off or of hurting yourself in some way: not at all Total score: 0 Depression Screening Interpretation: Negative Depression Screening Done: Yes Source: Developed by Drs. Atilio Dunn, Neelima ShankarThomas and colleagues, with an educational rosendo from [employer]. Thrive Questionnaire Date Thrive assessed: 08/27/25 I am a: Patient Within the past 12 months, did the food you bought not last and you didn't have the money to get more?: Never true Within the past 12 months, did you worry whether your food would run out before you got money to buy more?: Never true Do you have trouble paying for medicines?: No Do you have trouble getting transportation to medical appointments?: No Do you have trouble paying your heating and electricity bill?: No Do you have trouble taking care of your child, family member or friend?: No Do you have trouble with day-to-day activities such as bathing, preparing meals, shopping, managing finances, etc.?: No Are you currently unemployed and looking for a job?: No Are you interested in more education?: No THRIVE Score: 0 AUDIT C Alcohol Use Questionnaire (AUDIT-C) 1. How often do you have a drink containing alcohol?: Never 3. How often do you have six or more drinks on one occasion?: Never Total Score: 0 JUSTO-7 AMB Questionnaire JUSTO-7 Date JUSTO - 7 assessed: 08/27/25 Feeling nervous, anxious, or on edge: 0 = Not at all Not being able to stop or control worryin = Not at all Worrying too much about different things: 0 = Not at all Trouble relaxin = Not at all Being so restless that it is hard to sit still: 0 = Not at all Becoming easily annoyed or irritable: 0 = Not at all Feeling afraid as if something awful might happen: 0 = Not at all Total JUSTO-7 score (0-4 normal; 5-9 mild; 10-14 moderate; 15-21 severe): 0 Source: Developed by Drs. Atilio Dunn, Thomas Alexandra and colleagues, with an educational rosendo from [employer]. Review of Systems Const Details: CONSTITUTIONAL Negative HEAD/NECK Negative RESPIRATORY Negative CARDIOVASCULAR Negative GASTROINTESTINAL Negative MUSCULOSKELETAL Negative NEUROLOGICAL Left side weakness Balance issues PSYCHIATRIC Negative Physical exam (Primary Care) Vital Signs: Last Vital Signs Temp 97.9 F 08/27/25 09:38 Pulse 54 08/27/25 09:38 BP 130/70 08/27/25 09:38 Pulse Ox 99 08/27/25 09:38 Oxygen Delivery Method Room Air 08/27/25 09:38 BMI result Body Mass Index 24.7 GENERAL Well developed, Well nourished, in no apparent distress HEENT Head-Normocephalic Neck- Supple, No lymphadenopathy, thyroid WNL RESPIRATORY Normal I:E, Clear to auscultation CARDIOVASCULAR Regular, rate and rhythm, No murmurs or rubs NEUROLOGICAL Gait slow PSYCHIATRIC Oriented to person, place and time Mood and affect WNL Appearance WNL Speech WNL Thought processes WNL Tobacco/Smoking Status: Tobacco use Status Tobacco use date assessed 08/27/25 08/27/25 09:40 Patient Tobacco Use Status Never used Tobacco 08/27/25 09:40 e-Cigarette/Vaping Use Never Used 08/27/25 09:40 PHQ-9: PHQ-9 Score PHQ-9: Total score 0 08/27/25 15:28 Depression Screening Interpretation: Negative Thrive Assessment: Date of Thrive Assessment Date Thrive assessed 08/27/25 08/27/25 09:40 Coding Level of Care Code Established Pt Est Pt Level 4 (09460) Patient Type Established Diagnoses Essential hypertension I10 Diabetes E11.9 Diabetes mellitus type: type 2 Diabetes mellitus mcfp insulin use: without mcfp use Diabetes mellitus complication status: with kidney complications Diabetes mellitus complication detail: with chronic kidney disease Stage 3a chronic kidney disease N18.31 Chronic kidney disease stage: stage 3 (moderate) Chronic kidney disease stage 3 subtype: stage 3a (GFR 45-59) History of CVA (cerebrovascular accident) Z86.73 Anemia D64.9 Time Spent (min) 35 Comment Time spent on lab review, H&P, Patient education and orders Assessment & Plan Assessment & Plan (1) Essential hypertension: Comment: BP today was 130/70 Code(s): I10 - Essential (primary) hypertension Category: Medical Plan: Controlled. Patient will continue current medications. Will monitor. Patient will follow up in 3 months. (2) Diabetes: Comment: A1C was 8.3% Code(s): E11.9 - Type 2 diabetes mellitus without complications Category: Medical Qualifiers: Diabetes mellitus type: type 2 Diabetes mellitus mcfp insulin use: without meterman use Diabetes mellitus complication status: with kidney complications Diabetes mellitus complication detail: with chronic kidney disease Plan: The patient's type 2 diabetes mellitus is currently managed with metformin, but the hemoglobin A1c level is elevated at 8.3%. A new medication, Januvia, will be added to the regimen to help lower blood glucose levels. Dietary modifications and weight loss have been implemented to aid in diabetes management. Patient to follow up in 3 months or sooner if needed. (3) CKD (chronic kidney disease): Code(s): N18.9 - Chronic kidney disease, unspecified Category: Medical Qualifiers: Chronic kidney disease stage: stage 3 (moderate) Chronic kidney disease stage 3 subtype: stage 3a (GFR 45-59) Qualified Code(s): N18.31 - Chronic kidney disease, stage 3a Plan: Chronic kidney disease is stable with no significant changes in kidney function. Patient to follow up with Nephrology (4) History of CVA (cerebrovascular accident): Code(s): Z86.73 - Personal history of transient ischemic attack (TIA), and cerebral infarction without residual deficits Category: Medical Plan: Patient has an appointment with Neurology on 12/03/24. (5) Anemia: Code(s): D64.9 - Anemia, unspecified Category: Medical Plan: The anemia is likely related to chronic kidney disease and has remained stable without significant changes. Plan During the visit, we discussed the management of the patient's type 2 diabetes mellitus, including the addition of Januvia to the current regimen of metformin to better control blood glucose levels. We also reviewed the importance of dietary modifications and weight management in controlling diabetes and reducing stress on the kidneys. The patient was advised to follow up in three months with lab work completed prior to the appointment to assess the effectiveness of the treatment plan. Orders: Orders Hemoglobin A1c 2 Months E11.9 - Type 2 diabetes mellitus without complications Glucose Random 2 Months E11.9 - Type 2 diabetes mellitus without complications Medications: New sitagliptin phosphate (Januvia) 50 mg PO DAILY 90 tabs 0RF for diabetes Discontinued dapagliflozin propanediol (Farxiga) Discontinued Reason: Doctor's Order 5 mg PO DAILY 60 tabs 0RF for diabetes Patient Instructions: - Continue taking metformin as prescribed. - Start taking Januvia once daily in the morning. - Maintain a diet low in processed foods and sugars, focusing on whole foods. - Monitor blood glucose levels regularly. - Schedule a follow-up appointment in three months and complete lab work a few days prior.
== END 2025-08-27 15:54 | disposition home or self-care (01) ==
LOC: HO.HMCHD 14:42
PROVIDERS: PCP Internal Medicine; Visit Provider Physician Assistant Medical
DX: I10 Essential (primary) hypertension (principal); E11.9 Type 2 diabetes mellitus without complications; N18.31 Chronic kidney disease, stage 3a; Z86.73 Personal history of transient ischemic attack (TIA), and cerebral infarction without residual deficits; D64.9 Anemia, unspecified

== ENCOUNTER → 2025-08-27 14:41 | Outpatient (BNVA) | payer MEDICARE, SELFPAY | PROVIDERS: PCP Internal Medicine; Visit Provider Physician Assistant Medical | DX: E11.22 Type 2 diabetes mellitus with diabetic chronic kidney disease (principal); I10 Essential (primary) hypertension; N18.31 Chronic kidney disease, stage 3a; Z86.73 Personal history of transient ischemic attack (TIA), and cerebral infarction without residual deficits; D63.1 Anemia in chronic kidney disease | CPT/HCPCS: 99212 ==